=== PATIENT | male | born 1965 | race Caucasian/White ===

== ENCOUNTER → 2021-07-31 13:17 | Outpatient (CLI) | payer BC, SELFPAY ==
--- NOTE | ~2021-07-31 | XR_ITS ---
XR lumbar spine 2-3V 07/31/2021 14:44 Indication: Low back pain Procedure: 3 views lumbar spine Comparison: 08/16/2016 Findings: There is mild levoscoliosis. There is disc narrowing at all lumbar levels. There is moderat e multilevel facet degenerative change of the mid and lower lumbar spine. No acute fracture, subluxat ion or dislocation. No evidence for spondylolisthesis. Impression: 1: Moderate lumbar spondylosis with levoscoliosis. Reviewed, dictated and finalized at location B. IC IMPROVEMENT INSPECTOR Impression: 1: Moderate lumbar spondylosis with levoscoliosis.
--- NOTE | ~2021-07-31 | XR_ITS ---
EXAMINATION: XR ankle RT 2V, XR foot RT 2V EXAM DATE: 07/31/2021 14:44 INDICATION: Chronic pain syndrome, pain in unspecified ankle and joints. TECHNIQUE: Frontal and lateral projections of the right ankle. Right foot frontal and lateral projec tions. There is no prior study for comparison. FINDINGS: There is right subtalar joint fusion. There is mild to moderate ankle joint osteoarthritis , mild to moderate polyarticular midfoot osteoarthritis. The metatarsal bones are unremarkable. There are no acute fractures identified. There are no bony erosions identified. Small inferior calcaneal s pur. Flor deformity. IMPRESSION: 1. 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 2. Intact subtalar joint fusion screws. Reviewed, dictated and finalized at location A. NG BOARD MARKER IMPRESSION: 1. 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 2. Intact subtalar joint fusion screws.
--- NOTE | ~2021-07-31 | XR_ITS ---
XR cervical spine 4-5V 07/31/2021 14:44 Indication: Chronic neck pain syndrome Procedure: 5 views of the cervical spine Comparison: 08/16/2016 Findings: Vertebral body heights are maintained. No significant disc narrowing. There is moderate mul tilevel uncinate and facet degenerative change. Odontoid process within normal limits. No prevertebra l soft tissue swelling. Lung apices are unremarkable. Impression: 1: Mild-moderate cervical spondylosis. Reviewed, dictated and finalized at location B. MONIUM HYDROXIDE OPERATOR Impression: 1: Mild-moderate cervical spondylosis.
--- NOTE | ~2021-07-31 | XR_ITS ---
EXAMINATION: XR foot LT 2V EXAM DATE: 07/31/2021 14:44 INDICATION: Chronic pain syndrome . Bilateral foot pain. History of foot surgeries. TECHNIQUE: Frontal and lateral projections of the left foot. Correlation is made to Contralateral fo ot same date. FINDINGS: There is arthrodesis of the Lisfranc joint at the 1st and 2nd metatarsal bases. Prior calc aneal osteotomies with 2 plates, supporting screws. No evidence of screw fracture. The osteotomy site s appear healed. There is short and left 1st proximal phalanx, with possible osteotomy defect. Correl ate with surgical history. No acute erosive change or fracture. There is mild to moderate subtalar ana int, polyarticular midfoot osteoarthritis. IMPRESSION: Left foot chronic and postoperative changes. Reviewed, dictated and finalized at location A. R ATTENDANT
== END ==
PROVIDERS: PCP Internal Medicine; Visit Provider Pain Medicine Interventional Pain Medicine
DX: G89.4 Chronic pain syndrome (principal); M79.646 Pain in unspecified finger(s); M25.519 Pain in unspecified shoulder; M25.569 Pain in unspecified knee; M47.896 Other spondylosis, lumbar region; M19.071 Primary osteoarthritis, right ankle and foot; M47.892 Other spondylosis, cervical region
CPT/HCPCS: 72050; 72100; 73600; 73620

== ENCOUNTER → 2023-01-17 11:08 | Outpatient (CLI) | payer MEDICARE, OTHER, SELFPAY ==
--- NOTE | ~2023-01-17 | XR_ITS ---
Cervical Spine: AP, lateral, open-mouth views Clinical History: Pain Findings: The normal lordotic curve is maintained. The vertebral bodies and posterior elements appea r intact. The intervertebral disc spaces are well maintained. There is mild to moderate facet arthro zoë at the mid cervical spine. Pre-vertebral soft tissues are unremarkable. Impression: Mild to moderate facet arthropathy at the mid cervical spine. Reviewed, dictated and finalized at location . Impression: Mild to moderate facet arthropathy at the mid cervical spine.
--- NOTE | ~2023-01-17 | XR_ITS ---
Right foot Technique: AP and lateral views were obtained. Clinical History: Pain Findings: No acute fracture or dislocation is seen. Osseous alignment is anatomic. 2 orthopedic screw s are present, apparently fusing the subtalar joints.. Soft tissues are unremarkable. Impression: No acute abnormality. Probable orthopedic fusion across the subtalar joint. Correlate with surgical history. Reviewed, dictated and finalized at location . Impression: No acute abnormality. Probable orthopedic fusion across the subtalar joint. Correlate with surgical h istory.
--- NOTE | ~2023-01-17 | XR_ITS ---
Left Hand Technique: PA, oblique, and lateral views were obtained. Clinical History: Pain Findings: No acute fracture or dislocation is seen. Osseous alignment is anatomic. There is mild dege nerative change at the second DIP joint. There is orthopedic screw transfixing the fifth DIP joint, w hich appears to be fused. Impression: No acute abnormality. Orthopedic fusion across the fifth DIP joint. Correlate with surgical history. Mild degenerative change at the second DIP joint. Reviewed, dictated and finalized at location . Impression: No acute abnormality. Orthopedic fusion across the fifth DIP joint. Correlate with surgical history. Mild degenerative change at the second DIP joint.
--- NOTE | ~2023-01-17 | XR_ITS ---
Right Hand Technique: PA, oblique, and lateral views were obtained. Clinical History: Pain Findings: No acute fracture or dislocation is seen. Osseous alignment is anatomic. There is mild dege nerative change at the second DIP joint. Soft tissues are unremarkable. Impression: Mild degenerative change of the second DIP joint. Reviewed, dictated and finalized at [facility]. Impression: Mild degenerative change of the second DIP joint.
--- NOTE | ~2023-01-17 | XR_ITS ---
Left foot Technique: AP and lateral views were obtained. Clinical History: Pain COMPARISON: 07/31/2021 Findings: No acute fracture or dislocation is seen. Stable short first proximal phalanx. Orthopedic h ardware fusing the first and second tarsal metatarsal joints is stable from prior exam. There are 2 c ompression plate and interlocking screws involving the calcaneus, also unchanged. Soft tissues are un remarkable. Impression: No acute abnormality. Stable orthopedic fusions of the first and second tarsometatarsal joints, as well as additional ortho pedic plate and screws at the calcaneus. Correlate with surgical history. Reviewed, dictated and finalized at location M. Impression: No acute abnormality. Stable orthopedic fusions of the first and second tarsometatarsal joints, as we ll as additional orthopedic plate and screws at the calcaneus. Correlate with s urgical history.
--- NOTE | ~2023-01-17 | XR_ITS ---
Lumbosacral Spine: AP and lateral views Clinical History: Pain Findings: The normal lordotic curve is maintained. No fracture seen. Minimal grade 1 retrolisthesis o f L2 over L3 noted. There is moderate to advanced facet arthropathy throughout the lumbar spine. The sacroiliac joints are normally outlined. Impression: Moderate to advanced facet arthropathy throughout the lumbar spine. Minimal grade 1 retrolisthesis of L2 over L3. Reviewed, dictated and finalized at location M. Impression: Moderate to advanced facet arthropathy throughout the lumbar spine. Minimal grade 1 retrolisthesis of L2 over L3.
== END ==
PROVIDERS: PCP Pain Medicine Interventional Pain Medicine; Visit Provider Pain Medicine Interventional Pain Medicine
DX: M79.643 Pain in unspecified hand (principal); M79.673 Pain in unspecified foot; M54.17 Radiculopathy, lumbosacral region; M54.12 Radiculopathy, cervical region; M25.519 Pain in unspecified shoulder; M25.569 Pain in unspecified knee; M25.579 Pain in unspecified ankle and joints of unspecified foot; M79.646 Pain in unspecified finger(s); G89.4 Chronic pain syndrome
CPT/HCPCS: 72050; 72100; 73130; 73620

== ENCOUNTER 2024-03-01 12:10 | Outpatient (CLI) | payer MEDICARE, SELFPAY ==
--- NOTE | ~2024-03-01 | XR_ITS ---
EXAMINATION: XR_CERV2-3V_CR DATE: 03/01/2024 13:26 INDICATION: Cervical radiculopathy. Chronic neck pain. TECHNIQUE: 3 views of cervical spine were obtained. COMPARISON: Cervical spine radiographs 01/17/2023 FINDINGS: There is 4 degrees levocurvature of cervical spine. Vertebral body heights are normal. Ther e is mildly decreased disc height at C3-C4 and moderately decreased disc height at C6-C7. There is mu ltilevel facet joint osteoarthritis, severe on the right at C4-C5. There is mild central canal stenos is at C3-C4 and C6-C7. No prevertebral soft tissue swelling. IMPRESSION: 1. Moderate cervical spondylosis. Reviewed, dictated and finalized at location A.
--- NOTE | ~2024-03-01 | XR_ITS ---
EXAMINATION: XR thoracic spine 3V DATE: 03/01/2024 13:26 INDICATION: Thoracic radiculopathy. Thoracic back pain. TECHNIQUE: 3 views of thoracic spine including standing views were obtained. COMPARISON: None. FINDINGS: There is 6 degrees levocurvature of upper thoracic spine. Vertebral body heights are normal . There is mildly decreased disc height at multiple levels in thoracic spine. There are endplate oste ophytes at many levels. IMPRESSION: 1. Mild thoracic spondylosis. Reviewed, dictated and finalized at location A.
--- NOTE | ~2024-03-01 | XR_ITS ---
EXAMINATION: XR lumbar spine 2-3V DATE: 03/01/2024 13:26 INDICATION: Lumbar radiculopathy. TECHNIQUE: 3 views of lumbar spine including standing views were obtained. COMPARISON: Lumbar spine radiographs 01/17/2023 FINDINGS: There is 13 degrees dextroscoliosis of thoracolumbar spine. There is 4 mm retrolisthesis of L1 on L2 and L2 on L3. Vertebral body heights are normal. There is severely decreased disc height at L1-L2, moderately decreased disc height at L2-L3, mildly decreased disc height at L4-L5, and moderat jordan decreased disc height at L5-S1. There is multilevel severe facet joint osteoarthritis. IMPRESSION: 1. Severe lumbar spondylosis, worsened from 01/17/2023. 2. Thoracolumbar dextroscoliosis. Reviewed, dictated and finalized at location A.
== END 2024-03-01 12:11 ==
PROVIDERS: PCP Pain Medicine Interventional Pain Medicine
DX: M47.22 Other spondylosis with radiculopathy, cervical region (principal); M47.24 Other spondylosis with radiculopathy, thoracic region; M47.27 Other spondylosis with radiculopathy, lumbosacral region
CPT/HCPCS: 72040; 72072; 72100

== ENCOUNTER 2024-07-15 13:24 | Outpatient (CLI) | payer MEDICARE, SELFPAY ==
--- NOTE | ~2024-07-15 | XR_ITS ---
EXAMINATION: XR chest 2V 07/15/2024 13:41 INDICATION: Mild persistent asthma PROCEDURE: 2 view chest COMPARISON: No prior studies for comparison. FINDINGS: The lungs are clear. The cardiomediastinal silhouette is within normal limits. There are no pleural effusions. There is no pneumothorax suspected. IMPRESSION: 1: NO ACUTE CARDIOPULMONARY DISEASE. Reviewed, dictated and finalized at location B. JAVASCRIPT ENGINEER
== END 2024-07-15 13:25 | disposition home or self-care (01) ==
PROVIDERS: PCP Internal Medicine; Visit Provider Internal Medicine Pulmonary Disease
DX: J45.30 Mild persistent asthma, uncomplicated (principal)
CPT/HCPCS: 71046

== ENCOUNTER 2024-08-02 02:44 | Inpatient (IN) | payer MEDICARE, SELFPAY ==
[2024-08-02] VITALS (30 sets, daily range): BP systolic 95–130; BP diastolic 46–70; PULSE 92–123; RESP 14–29; TEMP 36.3–36.8; O2SAT 92–100; BMI 31.7
--- NOTE | 2024-08-02 | ECHO_ITS ---
Patient Info Name: Pedrito Mcneill Age: 58 years : 1965 Gender: Male Ht: 70 in Wt: 204 lbs BSA: 2.16 m2 HR: 105 bpm BP: 98 / 58 mmHg Technical Quality: Fair Exam Date: 08/02/2024 10:40 AM Exam Location: Echo Lab Patient Status: Inpatient Admit Date: 08/02/2024 Staff Ordering Physician: Russ Culver MD (luis daniel/sina) Senior Cytogenetics Laboratory Director: Jenn Delvalle RDCS Attending Provider: Francisco Mccauley MD Referring Physician: Palomo TADEO; Exam Type: CA echo doppler color flow w con Study Info Indications R07.9 - Chest pain, unspecified Complete two-dimensional, color flow and Doppler transthoracic echocardiogram is performed with contrast to opacify the left ventricle and to improve the deliniation of the left ventricle endocardial borders. Contrast/Agitated Saline Contrast/Ag. Saline: Definity Amount: 2.00 ml Administered By: Jenn Delvalle RDCS Existing IV Access: Yes IV Access Condition: patent with no signs of infiltration Summary 1. Left ventricular systolic function is normal, estimated at 55-60%. 2. The left ventricular diastolic function is abnormal. 3. Right ventricular chamber dimension is mildly enlarged. 4. Right ventricular systolic function is reduced. 5. There is trace tricuspid valve regurgitation. 6. Mild pulmonary hypertension, estimated pulmonary arterial systolic pressure is 38 mmHg. 7. Technically difficult study with limited views. Left Ventricle Left ventricular chamber dimension is normal. Left ventricular systolic function is normal, estimated at 55-60%. There is no increased left ventricular wall thickness. The left ventricular diastolic function is abnormal. Right Ventricle Right ventricular chamber dimension is mildly enlarged. Right ventricular systolic function is reduced. Left Atria Left atrial chamber dimension is normal. Right Atria Right atrial chamber dimension is normal. Aortic Valve The aortic valve is probable trileaflet. There is mild aortic valve sclerosis. There is no aortic valve stenosis. There is no aortic valve regurgitation. Pulmonic Valve The pulmonic valve is normal. There is no pulmonic valve stenosis. There is no pulmonic regurgitation. Mitral Valve The mitral valve has normal leaflets. There is no mitral valve stenosis. There is no mitral valve regurgitation. Tricuspid Valve The tricuspid valve leaflets are normal. There is no significant tricuspid valve stenosis. There is trace tricuspid valve regurgitation. Mild pulmonary hypertension, estimated pulmonary arterial systolic pressure is 38 mmHg. Pericardium/Pleural The pericardium appears normal. There is no pericardial effusion. Inferior Vena Cava Normal inferior vena cava with <50% collapse upon inspiration consistent with elevated right atrial pressure, 10 mmHg. Aorta The aortic root size at the sinus of Valsalva is normal. The prox ascending aorta size is normal. Mitral Valve Name Value Normal MV Doppler MV Decel Jenkins 438 cm/s2 MV PHT 33 ms MV Area (PHT) 6.6 cm2 4.0-5.0 MV Diastolic Function MV E Peak Velocity 51 cm/s MV A Peak Velocity 68 cm/s MV E/A 0.7 MV Decel Time 115 ms MV Annular TDI MV E/e' (Septal) 6.7 <=8.0 MV E/e' (Lateral) 5.5 <=8.0 MV E/e' (Average) 6.1 Tricuspid Valve Name Value Normal TV Regurgitation Doppler TR Peak Velocity 264 cm/s TR Peak Gradient 28 mmHg Estimated PAP/RSVP RA Pressure 10 mmHg <=5 PA Systolic Pressure 38 mmHg <36 RV Systolic Pressure 38 mmHg <36 Aorta Name Value Normal Ascending Aorta Ao Root Diameter (MM) 3.2 cm Ao Root Diam Index (MM) 1.5 cm/m2 Ventricles Name Value Normal LV Dimensions 2D/MM IVS Diastolic Thickness (2D) 0.9 cm 0.6-1.0 LVID Diastole (2D) 4.7 cm 4.2-5.8 LVIW Diastolic Thickness (2D) 0.9 cm 0.6-1.0 LVID Systole (2D) 2.8 cm 2.5-4.0 LV Mass (2D Cubed) 144.59 g 88.00-224.00 LV Mass Index (2D Cubed) 67 g/m2 49-115 Relative Wall Thickness (2D) 0.38 LV Fractional Shortening/Ejection Fraction 2D/MM LV Fractional Shortening (2D) 40 % 25-43 LV EF (2D Teicholz) 71 % 52-72 Atria Name Value Normal LA Dimensions LA Dimension (MM) 3.4 cm 3.0-4.1 Report Signatures LA
--- NOTE | ~2024-08-02 | US_ITS ---
EXAMINATION: US venous doppler [facility] DATE: 08/02/2024 14:29 INDICATION: Bilateral pulmonary embolus TECHNIQUE: Grayscale ultrasound images without and with compression and Doppler ultrasound images of the bilateral lower extremity veins were obtained. COMPARISON: None. FINDINGS: The visualized portions of right common femoral vein, profunda (deep) femoral vein, femoral vein, pop liteal vein, peroneal veins, posterior tibial veins, and greater saphenous vein outflow are patent. The visualized portions of left common femoral vein, profunda femoral vein, femoral vein, popliteal v ein, peroneal veins, posterior tibial veins, and greater saphenous vein outflow are patent. IMPRESSION: 1. No deep venous thrombosis within the bilateral lower extremities. Reviewed, dictated and finalized at location A. TOR OPERATOR
--- NOTE | ~2024-08-02 | XR_ITS ---
Portable chest x-ray Comparison: 07/15/2024 Clinical History: Shortness of breath Findings: Lungs are clear, without focal consolidation or pleural effusion. Cardiomediastinal silho uette is stable. Bones and soft tissues are unremarkable. Impression: Clear lungs. Reviewed, dictated and finalized at location . HOUSE OPERATOR Impression: Clear lungs.
--- NOTE | ~2024-08-02 | CT_ITS ---
EXAMINATION: CTA chest DATE: 08/02/2024 09:28 INDICATION: Shortness of breath. Assess for aortic dissection and pulmonary embolism TECHNIQUE: Computed tomographic angiography (CTA) of the chest was performed without and with 100 mL Omnipaque-350 intravenous contrast. Volume-rendered 3D-reconstructions of the aorta and large arterie s were constructed by the technologist on a separate workstation. Automated exposure control and iter ative reconstruction technique were employed. The dose-length product was 2097.50 mGy-cm. COMPARISON: None. FINDINGS: There are extensive central pulmonary arterial filling defects involving all of the lobar and multipl e more peripheral segmental and subsegmental pulmonary arteries in both lungs consistent with pulmona ry embolism with high clot burden. The heart size is normal but there is asymmetric right ventricular enlargement which suggests secondary right heart strain. There are small peripheral wedge-shaped reg ions of consolidation in the anterior segment of the left upper lobe suspicious for secondary pulmona ry infarcts versus less likely pneumonia. A couple calcified pulmonary nodule left lung consistent wi th old granulomatous disease. No pulmonary edema or pleural effusion. No pericardial effusion. Thorac ic aorta is normal in caliber with no dissection. Normal anatomic variant aberrant retroesophageal ri ght subclavian artery. No pathologically enlarged thoracic lymphadenopathy. Small sliding-type hiatal hernia. Visualized upper abdomen is unremarkable. Mild thoracic spondylosis. IMPRESSION: 1. Extensive pulmonary emboli with high clot burden involving all of the lobar and multiple segmental and subsegmental pulmonary throughout both lungs with asymmetric enlargement of the right ventricle suggesting secondary right heart strain. Findings were discussed with Dr. Lino, at 10:00 AM. 2. Couple small peripheral wedge-shaped regions of consolidation in the anterior segment of the left upper lobe consistent with secondary pulmonary infarcts or less likely pneumonia. 3. Small sliding-type hiatal hernia. Reviewed, dictated and finalized at location B. LE GREASER IMPRESSION: 1. Extensive pulmonary emboli with high clot burden involving all of the lobar and multiple segmental and subsegmental pulmonary throughout both lungs with as ymmetric enlargement of the right ventricle suggesting secondary right heart st rain. Findings were discussed with Dr. Lino, at 10:00 AM. 2. Couple small peripheral wedge-shaped regions of consolidation in the anterio r segment of the left upper lobe consistent with secondary pulmonary infarcts o r less likely pneumonia. 3. Small sliding-type hiatal hernia.
--- OUTSIDE RECORDS SUMMARY | 2024-08-02 02:46 | XMS_ITS | Encounter Summary ---
Author Organization [facility] Address [address] [place] [address]. [place], [place] [address] [place] [address] Care Team Providers Care Carbon Paper Coating Machine Setter Name Role Phone Reuben Padilla MD Primary Care Provider Encounter Details Date Type Department Care Team (Late st Contact Info) Description 06/02/2024 Zoomaalhart Message Enc [facility] Multispecialty Care - [address] [address] [address] [place], [place] [id number] Reuben Padilla MD [address] [place] [address] [address] [place] [address] Krzysztof Social History Tobacco Use Types Packs/Day Years Used Date Smoking Tobacco: Never Smokeless Tobacco: Never Comments:Counseled by Dr. Soco álvarez. Alcohol Use Standard Drinks/Week Comments Yes 3.3 (1 standard drink = 0.6 oz p ure alcohol) maybe once a month PHQ-2 Answer Date Recorded Patient Health Questionnaire-2 Score 0 07/16/2023 Sex and Gender Information Value Date Recorded Sex Assigned at Not on file Legal Sex Male 1:38 PM CDT Gender Identity Not on file Sexual Orientation Not on file documented as of this encounter Plan of Treatment Upcoming Encounters Date Type Department Care Team (Late st Contact Info) Description 09/03/2024 8:00 PM CUSTOMER CARE TEAM COACH Appointment [facility] [address] [place] [address] Gabe Vázquez DO [address] [place] [address] 10/06/2024 9:00 AM CDT Office Visit [facility] Multispecialty Care - [address] [place] [address] Reuben Padilla MD [address] [facility] [address] [place] [address] 01/24/2025 9:00 AM CDT Office Visit [facility] Multispecialty Care - [facility] [address] [place] [address] Gabe Vázquez DO [address] [facility] [address] [place] [address] documented as of this encounter Visit Diagnoses Not on filedocumented in this encounter Additional Health Concerns Assessment Noted Time PHQ-9 Depression Total Score: 6 07/16/19 24 1:42 PM CUSTOMER CARE TEAM COACH documented as of this encounter Care Teams Carbon Paper Coating Machine Setter Relationship Specialty Start Date End Date Reuben Padilla MD [address] [place] [address] PCP - General INTERNAL MEDICINE 12/04/22 documented as of this encounter
--- OUTSIDE RECORDS SUMMARY | 2024-08-02 02:46 | XMS_ITS | Encounter Summary ---
Author Organization [facility] Address [address] [place] [address]. [place], [place] [address] [place] [address] Care Team Providers Care Coiled Tubing Supervisor Name Role Phone Reuben Padilla MD Primary Care Provider [phone] Encounter Details Date Type Department Care Team (Late st Contact Info) Description 10/21/2023 Moberg Research Message Enc [facility] Medical [facility] Multispecialty Care - [address] [place], [place] [id number] [facility] Provider EKG Social History Tobacco Use Types Packs/Day Years Used Date Smoking Tobacco: Never Smokeless Tobacco: Never Comments:Counseled by Dr. oSco álvarez. Alcohol Use Standard Drinks/Week Comments Yes [...] st Contact Info) Description 09/03/2024 8:00 PM COACH TOUR DRIVER Appointment [facility] [address] [place] [address] Gabe Vázquez DO [address] [place] [address] 10/06/2024 9:00 AM CDT Office Visit [facility] Multispecialty Care - [place] [address] [facility] [address] [place] [address] Reuben Padilla MD [address] [address] 01/24/2025 9:00 AM CDT Office Visit [facility] Mult[facility]pecialty Care - [facility] [address] [facility] [address] [facility] [address] [place] [address] Gabe Vázquez DO [address] [facility] [address] [place] [address] documented as of this encounter Visit Diagnoses Not on filedocumented in this encounter Additional Health Concerns Assessment Noted Time PHQ-9 Depression Total Score: 6 07/16/19 24 1:42 PM COACH TOUR DRIVER documented as of this encounter Care Teams Coiled Tubing Supervisor Relationship Specialty [place] [address] [place] [address] PCP - General INTERNAL MEDICINE 12/04/22 documented as of this encounter
--- OUTSIDE RECORDS SUMMARY | 2024-08-02 02:46 | XMS_ITS | Encounter Summary ---
Author Organization [facility] Address [address] [place] [address]. [place], [place] [address] [place] [address] Care Team Providers Care Alignment Specialist Name Role Phone Reuben Padilla MD Primary Care Provider [phone] Encounter Details Date Type Department Care Team (Late st Contact Info) Description 01/31/2023 NanoSteel Message Enc [facility] Medical [facility] Multispecialty Care - [address] [place] [address] [facility] Provider Lab results Social History Tobacco Use Types Packs/Day Years Used Date Smoking Tobacco: Never Smokeless Tobacco: Never Comments:Counseled by Dr. Soco álvarez. Alcohol Use Standard Drinks/Week Comments Yes 3.3 (1 standard drink = 0.6 oz p ure alcohol) maybe once a month PHQ-2 Answer Date Recorded Patient Health Questionnaire-2 Score 5 01/28/2023 Sex and Gender Information Value Date Recorded Sex Assigned at Not on file Legal Sex Male 1:38 PM CDT Gender Identity Not on file Sexual Orientation Not on file documented as of this encounter Plan of Treatment Upcoming Encounters Date Type Department Care Team (Late st Contact Info) Description 09/03/2024 8:00 PM PROJECTION ENGINEER Appointment [facility] [address] [place] [address] Gabe Vázquez, DO [address] [place] [address] 10/06/2024 9:00 AM CDT Office Visit [facility] Group Multispecialty Care - [place] [address] [facility] [address] [place] [address] Reuben Pdailla MD [address] [address] 01/24/2025 9:00 AM CDT Office Visit [facility] Multispecialty Care - [facility] [address] [facility] [address] [place] [address] Gabe Vázquez DO [address] [facility] [address] [place] [address] documented as of this encounter Visit Diagnoses Not on filedocumented in this encounter Additional Health Concerns Assessment Noted Time PHQ-9 Depression Total Score: 19 023 2:28 PM CDT documented as of this encounter Care Teams Alignment Specialist Relationship Specialty [place] [address] [place] [address] PCP - General INTERNAL MEDICINE 12/04/22 documented as of this encounter
--- OUTSIDE RECORDS SUMMARY | 2024-08-02 02:46 | XMS_ITS | CONTINUITY OF CARE DOCUMENT ---
Author Name [email or web address] Address Unknown Organization [facility] Address [address] [place] [address] [address] [place] [address] Phone [phone] Care Team Providers Care Process Improvement Analyst Name Role Phone Richard WELLINGTON, Madeleine Unavailable Mellisa WELLINGTON, Jordan Jiménez Unavailable [phone] INSURANCE PROVIDERS Payer name Policy type / Coverage type Union red constitution party ID [facility] [id number]
--- OUTSIDE RECORDS SUMMARY | 2024-08-02 02:46 | XMS_ITS | Encounter Summary ---
Author Organization [facility] Address [address] [place] [address]. [place], [place] [address] [place] [address] Care Team Providers Care Floatman Name Role Phone Reuben Padilla MD Primary Care Provider [phone] Encounter Details Date Type Department Care Team (Late st Contact Info) Description 12/09/2023 [place] Systemshart Message Enc [facility] Medical Group Multispecialty Care - [address] [address] [address] [place] [address] [place] [address] [place] [address] [address] [place] [address] CPAP machine Social History Tobacco Use Types Packs/Day Years [...] st Contact Info) Description 09/03/2024 8:00 PM PHARMACEUTICAL PROCESS ENGINEER Appointment [facility] [address] [place], [place] [id number] Gabe Vázquez DO [address] [place] [address] 10/06/2024 9:00 AM CDT Office Visit [facility] Medical Group Multispecialty Care - [address] [place] [address] Reuben Padilla MD [address] [facility] 157 [place] [address] 01/24/2025 9:00 AM CDT Office Visit [facility] Multispecialty Care - [facility] [address] [place] [address] Gabe Vázquez DO [address] [facility] [address] [place] [address] documented as of this encounter Visit Diagnoses Not on filedocumented in this encounter Additional Health Concerns Assessment Noted Time PHQ-9 Depression Total Score: 6 07/16/19 24 1:42 PM PHARMACEUTICAL PROCESS ENGINEER documented as of this encounter Care Teams Floatman Relationship Specialty Start Date End Date Reuben Padilla MD [address] [place] [address] PCP - General INTERNAL MEDICINE 12/04/22 documented as of this encounter
--- OUTSIDE RECORDS SUMMARY | 2024-08-02 02:46 | XMS_ITS | Encounter Summary ---
Author Organization [facility] Address [address] [place] [address]. [place], [place] [address] [place] [address] Care Team Providers Care Supervisor Fabrication And Assembly Name Role Phone Reuben Padilla MD Primary Care Provider [phone] Encounter Details Date Type Department Care Team (Late st Contact Info) Description 07/17/2023 [employer] Message Enc [facility] Medical [facility] Multispecialty Care - [address] [place], [place] [id number] [facility], [facility] Provider Test results Social History Tobacco Use Types Packs/Day [...] st Contact Info) Description 09/03/2024 8:00 PM RAILROAD CAR CLEANER Appointment [facility] [address] [place] [address] Gabe Vázquez, DO [address] [facility] [address] [place] [address] 10/06/2024 9:00 AM CDT Office Visit [facility] Medical Group Multispecialty Care - [place] [address] [facility] [address] [place] [address] Reuben Padilla MD [address] [address] 01/24/2025 9:00 AM CDT Office Visit [facility] Multispecialty Care - [facility] [address] [facility] [address] [place] [address] Gabe Vázquez DO [address] [facility] [address] [place] [address] documented as of this encounter Visit Diagnoses Not on filedocumented in this encounter Additional Health Concerns Assessment Noted Time PHQ-9 Depression Total Score: 6 07/16/19 24 1:42 PM RAILROAD CAR CLEANER documented as of this encounter Care Teams Supervisor Fabrication And Assembly Relationship Specialty [place] [address] [place] [address] PCP - General INTERNAL MEDICINE 12/04/22 documented as of this encounter
--- OUTSIDE RECORDS SUMMARY | 2024-08-02 02:46 | XMS_ITS | Encounter Summary ---
Author Organization [facility] Address [address] [place] [address]. [place], [place] [address] [place] [address] Care Team Providers Care Highway Patrol Pilot Name Role Phone Reuben Padilla MD Primary Care Provider [phone] Encounter Details Date Type Department Care Team (Latest Contact Info) Description 07/14/2024 MyChart Message Enc [facility] Medical Group Multispecialty Care - [facility] [address] [facility] [address] [place] [address] Gabe Vázquez DO [address] [facility] [address] [place], [place] [id number] Xray for Pedrito Mcneill Social History Tobacco Use Types Packs/Day Years Used Date Smoking Tobacco: Never Smokeless Tobacco: Never Comments:Counseled by Dr. Soco álvarez. Alcohol Use Standard Drinks/Week Comments Yes 3.3 (1 standard drink = 0.6 oz p ure alcohol) maybe once a month PHQ-2 Answer Date Recorded Patient Health Questionnaire-2 Score 0 07/14/2024 Sex and Gender Information Value Date Recorded Sex Assigned at Not on file Legal Sex Male 1:38 PM CDT Gender Identity Not on file Sexual Orientation Not on file documented as of this encounter Plan of Treatment Upcoming Encounters Date Type Department Care Team (Late st Contact Info) Description 09/03/2024 8:00 PM PIANO TECHNICIAN Appointment [facility] [address] [place] [address] Gabe Vázquez DO 3 [facility] [address] [place] [address] 10/06/2024 9:00 AM CDT Office Visit [facility] Medical Group Multispecialty Care - [place] [address] [address] [place] [address] [place] [address] [place] [address] 01/24/2025 9:00 AM CDT [facility] [address] [facility] [address] [place] [address] Gabe Vázquez DO 3 [facility] [address] [place] [address] documented as of this encounter Visit Diagnoses Not on filedocumented in this encounter Additional Health Concerns Assessment Noted Time PHQ-9 Depression Total Score: 6 07/16/19 24 1:42 PM PIANO TECHNICIAN documented as of this encounter Care Teams Highway Patrol Pilot Relationship Specialty Start [place] [address] [place] [address] PCP - General INTERNAL MEDICINE 12/04/22 documented as of this encounter
--- OUTSIDE RECORDS SUMMARY | 2024-08-02 02:46 | XMS_ITS | Encounter Summary ---
Author Organization [facility] Address [address] [place] [address]. [place], [place] [address] [place] [address] Care Team Providers Care Claims Representative Name Role Phone Reuben Padilla MD Primary Care Provider [phone] Encounter Details Date Type Department Care Team (Late st Contact Info) Description 12/09/2023 [employer] Message Enc [facility] Medical Group Multispecialty Care - [place] [address] [address] [place] [address] Reuben Padilla MD [address] [place] [address] 157 [place] [address] CPAP Social History Tobacco Use Types Packs/Day Years [...] st Contact Info) Description 09/03/2024 8:00 PM MACHINE SHOP LEAD MAN Appointment [facility] [address] [place], [place] [id number] Gabe Vázquez DO [address] [place] [id number] 10/06/2024 9:00 AM CDT Office Visit [facility] Medical Group Multispecialty Care - [address] [place] [address] Reuben Padilla MD 1188 [facility] 157 [place] [address] 01/24/2025 9:00 AM CDT Office Visit [facility] Mult[facility]pecialty Care - [facility] [address] [facility] [place] [address] Gabe Vázquez DO 3 [facility] [address] [place] [address] documented as of this encounter Visit Diagnoses Not on filedocumented in this encounter Additional Health Concerns Assessment Noted Time PHQ-9 Depression Total Score: 6 07/16/19 24 1:42 PM MACHINE SHOP LEAD MAN documented as of this encounter Care Teams Claims Representative Relationship Specialty Start Date End Date Reuben Padilla MD [address] [place] [address] PCP - General INTERNAL MEDICINE 12/04/22 documented as of this encounter
--- OUTSIDE RECORDS SUMMARY | 2024-08-02 02:46 | XMS_ITS | Encounter Summary ---
Author Organization [facility] Address [address] [place] [address]. [place], [place] [address] [place] [address] Care Team Providers Care Soil Scientist Name Role Phone Reuben Padilla MD Primary Care Provider [phone] Encounter Details Date Type Department Care Team (Late st Contact Info) Description 11/03/2023 MyChart Message Enc [facility] Medical Group Multispecialty Care - [place] [address] [address] [place] [address] Reuben Padilla MD [address] [place] [address] 157 [place] [address] Dr Joya Social History Tobacco Use Types Packs/Day Years [...] st Contact Info) Description 09/03/2024 8:00 PM PLUCK SEPARATOR Appointment [facility] [address] [place], [place] [id number] Gabe Vázquez DO [address] [facility] [address] [place] [address] 10/06/2024 9:00 AM CDT Office Visit [facility] Medical Group Multispecialty Care - [address] [place] [address] Reuben Padilla MD [address] [facility] 157 [place] [address] 01/24/2025 9:00 AM CDT Office Visit [facility] Medical Group Multispecialty Care - [facility] [address] [facility] [place] [address] Gabe Vázquez DO 3 [facility] [address] [place] [address] documented as of this encounter Visit Diagnoses Not on filedocumented in this encounter Additional Health Concerns Assessment Noted Time PHQ-9 Depression Total Score: 6 07/16/19 24 1:42 PM PLUCK SEPARATOR documented as of this encounter Care Teams Soil Scientist Relationship Specialty Start Date End Date Reuben Padilla MD [address] [place] [address] PCP - General INTERNAL MEDICINE 12/04/22 documented as of this encounter
--- OUTSIDE RECORDS SUMMARY | 2024-08-02 02:46 | XMS_ITS | Encounter Summary ---
Author Organization [facility] Address [address] [place] [address]. [place], [place] [address] [place] [address] Care Team Providers Care Hoop Machine Operator Name Role Phone Reuben Padilla MD Primary Care Provider [phone] Encounter Details Date Type Department Care Team (Late st Contact Info) Description 08/01/2023 MyChart Message Enc [facility] Medical Group Multispecialty Care - [place] [address] [address] [place] [address] Reuben Padilla MD [address] [place] [address] 157 [place] [address] [employer] Social History Tobacco Use Types Packs/Day Years [...] Contact Info) Description 09/03/2024 8:00 PM CUSTOMER PROFESSIONAL Appointment [facility] [address] [place] [address] Gabe Vázquez DO [address] [facility] [place] [address] 10/06/2024 9:00 AM CDT Office Visit [facility] Medical Group Multispecialty Care - [address] [place] [address] Reuben Padilla MD 1188 [facility] 157 [place] [address] 01/24/2025 9:00 AM CDT Office Visit [facility] Medical Group Multispecialty Care - [facility] [address] [facility] [place] [address] Gabe Vázquez DO 3 [facility] [address] [place] [address] documented as of this encounter Visit Diagnoses Not on filedocumented in this encounter Additional Health Concerns Assessment Noted Time PHQ-9 Depression Total Score: 6 07/16/19 24 1:42 PM CUSTOMER PROFESSIONAL documented as of this encounter Care Teams Hoop Machine Operator Relationship Specialty Start Date End Date Reuben Padilla MD [address] [place] [address] PCP - General INTERNAL MEDICINE 12/04/22 documented as of this encounter
--- OUTSIDE RECORDS SUMMARY | 2024-08-02 02:46 | XMS_ITS | Encounter Summary ---
Author Organization [facility] Address [address] [place] [address]. [place], [place] [address] [place] [address] Care Team Providers Care Music Critic Name Role Phone Reuben Padilla MD Primary Care Provider [phone] Encounter Details Date Type Department Care Team (Late st Contact Info) Description 01/02/2024 [email or web address] Message Enc [facility] Medical Group Multispecialty Care - [place] [address] [address] [place] [address] Reuben Padilla MD [address] [place] [address] 157 [place] [address] Sejal Social History Tobacco Use Types Packs/Day Years [...] st Contact Info) Description 09/03/2024 8:00 PM CARGO AGENT Appointment [facility] [address] [place] [address] Gabe Vázquez DO [address] [facility] [address] [place] [address] 10/06/2024 9:00 AM CDT Office Visit [facility] Medical Group Multispecialty Care - [address] [place] [address] Reuben Padilla MD 1188 [facility] 157 [place] [address] 01/24/2025 9:00 AM CDT Office Visit [facility] Medical Group Multispecialty Care - [facility] [address] [facility] [address] [place] [address] Gabe Vázquez DO [address] [facility] [address] [place] [address] documented as of this encounter Visit Diagnoses Not on filedocumented in this encounter Additional Health Concerns Assessment Noted Time PHQ-9 Depression Total Score: 6 07/16/19 24 1:42 PM CARGO AGENT documented as of this encounter Care Teams Music Critic Relationship Specialty [place] [address] [place] [address] 157 [place] [address] PCP - General INTERNAL MEDICINE 12/04/22 documented as of this encounter
--- OUTSIDE RECORDS SUMMARY | 2024-08-02 02:46 | XMS_ITS | Encounter Summary ---
Author Organization [facility] Address [address] [place] [address] Care Team Providers Care Sales Planning Manager Name Role Phone Jordan Pak MD Primary Care Provider [phone] Morris Busby MD Primary Care Provider [phone] Encounter Details Date Type Department Care Team (Late st Contact Info) Description 04/14/2020 Telephone [facility] [address] [place] [address] Jv Bray, RT Social History Tobacco Use Types Packs/Day Years Used Date Smoking Tobacco: Never Smokeless Tobacco: Never Alcohol Use Standard Drinks/Week Comments Yes 0 (1 standard drink = 0.6 oz pur e alcohol) Sex and Gender Information Value Date Recorded Sex Assigned at Not on file Legal Sex Male 7:47 PM HOT MILL OBSERVER Gender Identity Not on file Sexual Orientation Not on file 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
--- OUTSIDE RECORDS SUMMARY | 2024-08-02 02:46 | XMS_ITS | Encounter Summary ---
Author Organization [facility] Address [address] [place] [address]. [place], [place] [address] [place] [address] Care Team Providers Care Dermatology Nurse Name Role Phone Reuben Padilla MD Primary Care Provider [phone] Encounter Details Date Type Department Care Team (Late st Contact Info) Description 05/27/[address] [facility] Medical Group Multispecialty Care - [place] [address] [address] [place] [address] Reuben Padilla MD [address] [place] [address] 157 [place] [address] [employer] Social History Tobacco Use Types Packs/Day Years [...] st Contact Info) Description 09/03/2024 8:00 PM BENZENE OPERATOR Appointment [facility] [address] [place], [place] [address] Gabe Vázquez DO [address] [place] [address] 10/06/2024 9:00 AM CDT Office Visit [facility] Medical Group Multispecialty Care - [address] [place] [address] Reuben Padilla MD 1188 [facility] 157 [place] [address] 01/24/2025 9:00 AM CDT Office Visit [facility] Medical Group Multispecialty Care - [facility] [address] [facility] [address] [place] [address] Gabe Vázquez DO 3 [facility] [address] [place] [address] documented as of this encounter Visit Diagnoses Not on filedocumented in this encounter Additional Health Concerns Assessment Noted Time PHQ-9 Depression Total Score: 6 07/16/19 24 1:42 PM BENZENE OPERATOR documented as of this encounter Care Teams Dermatology Nurse Relationship Specialty Start Date End Date Reuben Padilla MD [address] [place] [address] PCP - General INTERNAL MEDICINE 12/04/22 documented as of this encounter
--- OUTSIDE RECORDS SUMMARY | 2024-08-02 02:46 | XMS_ITS | Encounter Summary ---
Author Organization [facility] Address [address] [place] [address]. [place], [place] [address] [place] [address] Care Team Providers Care Pouncing Lathe Operator Name Role Phone Reuben Padilla MD Primary Care Provider [phone] Encounter Details Date Type Department Care Team (Latest Contact Info) Description 10/28/2023 MyChart Message Enc [facility] Medical Group Multispecialty Care - [address] [place], [place] [address] [place] [address] [place] [address] 157 [place] [address] most recent labs Social History Tobacco Use Types Packs/Day Years [...] on file documented as of this encounter Progress Notes * Arturo Randolph - 10/28/2023 11:48 AM CDT Labs successfully faxed to [phone]. documented in this encounter Plan of Treatment Upcoming Encounters Date Type Department Care Team ( Contact Info) Description 09/03/2024 8:00 PM PROGRAM PROJECT MANAGER Appointment [facility] [address] [place] [address] Gabe Vázquez DO 3 [facility] [address] [place] [address] 10/06/2024 9:00 AM CDT Office Visit [facility] Medical [facility] Multispecialty [facility] [place] [address] [address] [place] [address] Reuben Padilla MD [address] [place] [address] 01/24/2025 9:00 AM CDT Office Visit [facility] [address] [facility] [address] [place] [address] Gabe Vázquez DO 3 [facility] [address] [place] [address] documented as of this encounter Visit Diagnoses Not on filedocumented in this encounter Additional Health Concerns Assessment Noted Time PHQ-9 Depression Total Score: 6 07/16/19 24 1:42 PM PROGRAM PROJECT MANAGER documented as of this encounter Care Teams Pouncing Lathe Operator Relationship Specialty Start Date End Date Reuben Padilla MD [address] [place] [address] PCP - General INTERNAL MEDICINE 12/04/22 documented as of this encounter
--- OUTSIDE RECORDS SUMMARY | 2024-08-02 02:46 | XMS_ITS | Clinical Summary ---
Author Organization [facility] Address [address] [place] [address]. [place], [place] [id number] [place] [id number] Care Team Providers Care Last Sawyer Name Role Phone Reuben Padilla MD Primary Care Provider [phone] Allergies Active Allergy Reactions Criticality Noted Date Comments Acyclovir Headache Low 03/31/2020 Metformin Diarrhea Low 03/31/2020 Penicillins Hives 01/28/2023 Sulfa Antibiotics Nausea and Vomiting 3 Sulfites Headache,Vomiting 08/16/2005 Medications fentaNYL (DURAGESIC) 50 mcg/hr 3 Active hydrocortisone- pramoxine (ANALPRAM HC) 2.5-1 % rectal cream Active oxyCODONE-aceta minophen (PERCOCET) 7.5-325 MG tablet 3 Active traMADol (ULTRAM) 50 MG tablet 3 Active aspirin 81 MG chewable tabletIndicatio ns:Type 2 diabetes mellitus with hyperglycemia, without long-term current use of insulin ([facility]) Chew 1 tablet (81 mg total) by mouth daily. 30 tablet 3 Active Insulin Pen Needle 31G X 8 MM MiscIndications :Type 2 diabetes mellitus with hyperglycemia, without long-term current use of insulin ([facility]) Use daily to dispense Toujeo. 100 each 11 3 Active fluticasone propionate (FLONASE) 50 MCG/ACT nasal sprayIndication s:Chronic obstructive pulmonary disease, unspecified COPD type ([facility]) 1 spray by Each Nostril route daily. 16 g 5 4 Active fluticasone-ashkan meterol (ADVAIR DISKUS) 250-50 MCG/ACT inhalerIndicati ons:Chronic obstructive pulmonary disease, unspecified COPD type ([facility] HHS/HCC) Inhale 1 puff into the lungs 2 (two) times daily. 60 each 5 4 Active CPAP DEVICE, DME,Indications :GRANT (obstructive sleep apnea) [facility]. 1 Device 4 Active cyclobenzaprine (FLEXERIL) 10 MG tabletIndicatio ns:Chronic midline low back pain, unspecified whether sciatica present Take 1 tablet (10 mg total) by mouth daily. 90 tablet 1 4 Active buPROPion XL (WELLBUTRIN XL) 150 MG 24 hr tabletIndicatio ns:Moderate episode of recurrent major depressive disorder ([facility] HHS/HCC) Take 1 tablet (150 mg total) by mouth daily. 90 tablet 1 4 Active RELISTOR 150 MG Tab Take 3 tablets by mouth daily. 4 Active amitriptyline (ELAVIL) 25 MG tablet Take 1 tablet (25 mg total) by mouth daily. 4 Active valACYclovir (VALTREX) 500 MG tabletIndicatio ns:Cold sore Take 1 tablet (500 mg total) by mouth 2 (two) times daily. 14 tablet 4 Active ondansetron (ZOFRAN) 4 MG tabletIndicatio ns:Type 2 diabetes mellitus with hyperglycemia, without long-term current use of insulin ([facility] HHS/HCC) TAKE 1 TABLET BY MOUTH DAILY NEEDED. 20 tablet 4 Active busPIRone (BUSPAR) 10 MG tabletIndicatio ns:RICKI (generalized anxiety disorder) take 1 tablet twice a day 180 tablet 4 Active pregabalin (LYRICA) 75 MG capsuleIndicati ons:Chronic midline low back pain, unspecified whether sciatica present TAKE 1 CAPSULE TWICE DAILY 180 capsule 4 Active Zolmitriptan 5 MG SolutionIndicat ions:Intractabl e persistent migraine aura without cerebral infarction and without status migrainosus Use one spray into nostril. You may use one additional dose of zolmitriptan 2 hours after the first dose. Do not use more than 3 doses in any 24-hour period. 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 180 tablet 1 4 Active tirzepatide (MOUNJARO) 15 MG/0.5ML injectionIndica tions:Diabetes Mellitus Inject 15 mg into the skin once a week. Indications: Diabetes 6 mL 6 4 Active lisinopril (PRINIVIL) 10 MG tabletIndicatio ns:Hypertension associated with diabetes (CMS/HCC HHS/HCC) Take 1 tablet (10 mg total) by mouth daily. 90 tablet 1 4 Active Insulin Glargine, 2 Unit Dial, (TOUJEO MAX SOLOSTAR) 300 UNIT/ML Solution Pen-injectorInd ications:Type 2 diabetes mellitus with hyperglycemia, without long-term current use of insulin (CMS/HCC HHS/HCC) Inject 54 Units into the skin nightly at bedtime. 3 mL 3 4 Active insulin aspart (NOVOLOG FLEXPEN) 100 UNIT/ML injection (PEN)Indication s:Type 2 diabetes mellitus with hyperglycemia, without long-term current use of insulin (CMS/HCC HHS/HCC) Inject 5 Units into the skin 3 (three) times daily before meals. 3 mL 4 4 Active fenofibrate 160 MG tabletIndicatio ns:Hypertriglyc eridemia Take 1 tablet (160 mg total) by mouth daily. 90 tablet 1 4 Active atorvastatin (LIPITOR) 40 MG tabletIndicatio ns:Type 2 diabetes mellitus with hyperglycemia, without long-term current use of insulin (CMS/HCC HHS/HCC) Take 1 tablet (40 mg total) by mouth daily. 90 tablet 1 4 Active ezetimibe (ZETIA) 10 MG tabletIndicatio ns:Type 2 diabetes mellitus with hyperglycemia, without long-term current use of insulin (CMS/HCC HHS/HCC) Take 1 tablet (10 mg total) by mouth daily. 90 tablet 4 Active FLUoxetine (PROZAC) 40 MG capsuleIndicati ons:Moderate episode of recurrent major depressive disorder ([facility]) Take 1 capsule (40 mg total) by mouth daily. 90 capsule 1 4 Active rOPINIRole (REQUIP) 1 MG tabletIndicatio ns:RLS (restless legs syndrome) TAKE 1 TABLET 3 TIMES A DAY 90 tablet 1 4 Active Continuous Glucose Film Cleaner (DEXCOM G6 MILITARY AIRCRAFT DESIGNER) DeviceIndicatio ns:Type 2 diabetes mellitus without complication, with long-term current use of insulin ([facility]) Use daily to check blood sugar as directed. 1 each 3 4 Active Continuous Glucose Sensor (DEXCOM G6 SENSOR) MiscIndications :Type 2 diabetes mellitus without complication, with long-term current use of insulin ([facility]) Use daily to check blood sugar as directed. 3 each 12 4 Active Continuous Glucose Transmitter (DEXCOM G6 TRANSMITTER) MiscIndications :Type 2 diabetes mellitus without complication, with long-term current use of insulin ([facility]) USE DIRECTED TO CHECK BLOOD SUGAR DAILY 1 each 11 4 Active Active Problems Problem Noted Date Diagnosed Date Hyperlipidemia associated wi th type 2 diabetes mellitus ([facility]) 01/28/2023 Hypertension associated with type 2 diabetes mellitus ([facility]) 01/28/2023 Neuropathy due to type 2 micha betes mellitus ([facility]) 01/28/2023 RICKI (generalized anxiety disorder) 01/28/2023 Chronic low back pain 01/28/2023 Chronic neck pain 01/28/2023 Migraine 01/28/2023 Recurrent major depression 05/21/2022 Type 2 diabetes mellitus wit hout complication ([facility]) 10/24/2020 Pain of foot 07/08/2013 COPD (chronic obstructive pu lmonary disease) ([facility]) 07/06/2007 Degenerative joint disease 07/06/2005 Encounters Date Type Department Care Team Description 07/15/2024 Scan HEALTH INFO SRVCS Scanned, Doc Med Group Image (SCAN) 07/15/2024 Telephone [facility] - [address] [place] [address] Gabe Vázquez DO Results 07/14/2024 8:00 AM TECHNICAL SUPERVISOR [facility] - [address] [place] [address] Gabe Vázquez DO Obstructive Sleep Apnea (On cpap; has been told that he is still snoring with the cpap on; last time he changed out mask/straps was 05/2024 ) 07/14/2024 MyChart Message Enc [facility] - [address], [address] [place] [address] Gabe Vázquez DO Xray for Pedrito Mcneill 07/14/2024 Travel 06/02/2024 MyChart Message Enc [facility] - [place] [address] [place] [address] [facility] Orders Only [facility] [place] [address] [place] [address] Reuben Padilla MD 05/27/2024 MyChart Message Enc [facility] - [place] [address] [place] [address] Reuben Padilla MD Dexcom from Last 3 Months Immunizations Name Administration Dates Next Due Influenza (Generic) 03/19/2024,,04/10/2022,2017,03/29/2017,04/09/2016,04/12/2015,1 Influenza Adult (Generic) 04/17/2022,07/2020,03/15/2020,2015,04/13/2015,07/07/2012 MODERNA COVID-19 (12+) MRNA, LNP-S, PF, 100 MCG/ 0.5 ML DOSE 04/10/2022,10/02/2020,09/12/2020,2020 MODERNA COVID-19 (CARDIAC TECHNOLOGIST SAFIA ZHENG), MRNA, LNP-S, PF, 50 MCG/ 0.25 ML DOSE 12/16/2021,06/12/2021 PFIZER COVID-19 BIVALENT (12 +) mRNA, LNP-S, PF, 30 MCG/0.3 ML DOSE 03/19/2024 Pneumococcal (Pneumovax 23) 06/12/2015 Pneumococcal (Prevnar 13) 04/12/2015 Shingrix 12/16/2021,04/30/2021 Tdap (Adacel) 07/16/2023 Family History Medical History Relation Comments Arthritis Mother Depression Mother Diabetes Mother Hypertension Mother Relation Status Comments Mother Social History Tobacco Use Types Packs/Day Years Used Date Smoking Tobacco: Never Smokeless Tobacco: Never Tobacco Cessation:Counseling Given: Yes Comments:Counseled by Dr. Padilla. Alcohol Use Standard Drinks/Week Comments Yes 3.3 (1 standard drink = 0.6 oz p ure alcohol) maybe once a month PHQ-2 Answer Date Recorded Patient Health Questionnaire-2 Score 0 07/14/2024 Sex and Gender Information Value Date Recorded Sex Assigned at Not on file Legal Sex Male 1:38 PM CDT Gender Identity Not on file Sexual Orientation Not on file Last Filed Vital Signs Vital Sign Reading Time Taken Comments Blood Pressure 106/71 07/14/2024 7:46 AM TECHNICAL SUPERVISOR Pulse 90 07/14/2024 7:46 AM TECHNICAL SUPERVISOR Temperature 36.2 ??C (97.1 ??F) 04/27/2024 8:46 AM CD T Respiratory Rate 16 07/14/2024 7:46 AM TECHNICAL SUPERVISOR Oxygen Saturation 95% 07/14/2024 7:46 AM TECHNICAL SUPERVISOR RA Inhaled Oxygen Concentration - - Weight 92.5 kg (204 lb) 07/14/2024 7:46 AM TECHNICAL SUPERVISOR Height 177.8 cm (5' 10 ) 07/14/2024 7:46 AM TECHNICAL SUPERVISOR Body Mass Index 29.27 07/14/2024 7:46 AM TECHNICAL SUPERVISOR Plan of Treatment Upcoming Encounters Date Type Department Care Team (Late st Contact Info) Description 09/03/2024 8:00 PM TECHNICAL SUPERVISOR Appointment [facility] [address] [place] [address] Gabe Vázquez DO [address] [facility] [address] [facility] [address] [place] [address] 10/06/2024 9:00 AM CDT Office Visit [facility] - [place] [address] [address] [place] [address] Reuben Padilla MD [address] [facility] [address] [place] [address] 01/24/2025 9:00 AM CDT [facility] [address] [place] [address] Gabe Vázquez DO [address] [facility] [address] [place] [address] Health Maintenance Due Date Last Done Comments Kidney Health Evaluation 1965 COVID-19 Vaccine ( season) 2024 03/19/2024, 03/31/2023, 04/17/2022, Additional history exists Annual Physical 07/16/2024 07/16/2023 Lipid Panel 07/16/2024 07/16/2023, 01/05, 08/20/2022 Hemoglobin A1C 07/28/2024 01/26/2024, 10/05, 07/16/2023, Additional history exists Colorectal Cancer Screening Colonoscopy (10 Years) 07/12/2025 07/12/2015 PHQ-2 (Physician Premium) 07/14/2025 07/14/2024 Diabetes: Retinopathy Eye Exam 11/09/2025 11/10/2023 Pneumococcal Vaccine: Pediatrics (0 to 5 Years) and At-Risk Patients (6 to 64 Years) (3 of 3 - PPSV23 or PCV20) 2029 06/12/2015, 04/12/2015 DTaP, Tdap and Td Vaccines (2 - Td or Tdap) 07/16/2033 07/16/2023 Zoster Vaccines Completed 12/16/2021, 04/30/2021 Hepatitis C Completed 01/28/2023 Influenza Adult Completed 03/19/2024, 03/08, 04/17/2022, Additional history exists Meningococcal Vaccine Aged Out No suzie alicia eligible based on patient's age to complete this topic RSV Immunizations Under 20 Months Aged Out No longer eligible based on patient's age to complete this topic Procedures Procedure Name Priority Date/Time Associated Diagnosis Comments IMAGE GENERIC 07/15/2024 IMAGE GENERIC 07/15/2024 HEMOGLOBIN, GLYCOSYLATED Routine 01/26/2024 10:17 AM CDT Type 2 diabetes mellitus with hyperglycemia, without long-term current use of insulin ([facility]) DIABETIC RETINOPATHY EXAM (NEGATIVE)(SCAN ORDER) Routine 11/10/2023 LIPID PANEL Routine 07/16/2023 1:33 PM TECHNICAL SUPERVISOR Annual physical exam General medical exam HEPATITIS C ANTIBODY Routine 01/28/2023 3:37 PM CDT Encounter for medical examination to establish care General medical exam Encounter for hepatitis C screening test for low risk patient COLONOSCOPY GENERIC (SCAN ORDER) 07/12/2015 from Last 3 Months or Most Recently Relevant to Health Maintenance Results * IMAGE GENERIC (07/15/2024) Only the most recent of2 resultswithin the time period is included. Anatomical Region Laterality Modality Other 07/15/2024 us Doc [facility] Scanned SCANNING Final Resu lt * (ABNORMAL) HEMOGLOBIN, GLYCOSYLATED (01/26/2024 10:17 AM CDT) HGB A1C 5.9 4.5 - 6.2 % 01/26/2024 3:15 PM CDT [facility] ESTIM[facility] AVG GLUCOSE 123(H) 74 - 106 MG/DL 01/26/2024 3:15 PM CDT [facility] 01/26/2024 10:1 7 AM CDT Reuben Padilla MD LABORATORY Final Result [facility] [address] [facility] [place] [address], [place] [phone] * DIABETIC RETINOPATHY EXAM (NEGATIVE) (11/10/2023) Doc [facility] Scanned SCANNING Final Resu lt Performing Organization Address City/[facility]/ZIP Co de Phone Number [facility] * (ABNORMAL) LIPID PANEL (07/16/2023 1:33 PM TECHNICAL SUPERVISOR) CHOLESTEROL 186 <200 MG/DL 07/16/2023 8:05 PM TECHNICAL SUPERVISOR [facility] TRIGLYCERIDES 197(H) <150 MG/DL 07/16/2023 8:05 PM [facility] HDL 48 >40 MG/DL 07/16/2023 8:05 PM TECHNICAL SUPERVISOR [facility] LDL-C 99 <100 MG/DL 07/16/2023 8:05 PM [facility] VLDL CALCULATION 39(H) 5 - 28 MG/DL 07/16/2023 8:05 PM [facility] CHOL/HDL RATIO 3.9 0.0 - 4.0 07/16/2023 8:05 PM [facility] LDL/HDL 2.1 0.41 - 2.13 07/16/2023 8:05 PM [facility] NON HDL CHOLESTEROL 138 <140 MG/DL 07/16/2023 8:05 PM TECHNICAL SUPERVISOR [facility] 07/16/2023 1:33 PM TECHNICAL SUPERVISOR Reuben Padilla MD LABORATORY Final Result [facility] [address] [facility] [place] [address], [place] [phone] * HEPATITIS C ANTIBODY (01/28/2023 3:37 PM CDT) HEPATITIS C AB NON-REACTI VE NON-REACT MADYSON 01/28/2023 9:58 PM CDT [facility] Comment: ANTIBODIES TO HCV NOT DETECTED. DOES NOT EXCLUDE THE POSSIBILITY OF EXPOSURE TO HCV. 01/28/2023 3:37 PM CDT Reuben Padilla MD LABORATORY Final Result Performing Organization Address City/[facility] Co de Phone Number [facility] [address] [place] [address], [place] [phone] * COLONOSCOPY GENERIC (07/12/2015) 07/12/2015 us Doc [facility] Scanned SCANNING Final Resu lt from Last 3 Months or Most Recently Relevant to Health Maintenance Insurance [employer] Care Teams Last Sawyer Relationship Specialty Start Date End Date Reuben Padilla MD [address] [facility] [address] [place] [address] PCP - General INTERNAL MEDICINE 12/04/22
--- OUTSIDE RECORDS SUMMARY | 2024-08-02 02:47 | XMS_ITS | Clinical Summary ---
Author Organization [facility] Office Center Address [address] [place] [address] Care Team Providers Care Frit Coater Name Role Phone Morris Busby MD Primary Care Provider [phone] Allergies Active Allergy Reactions Criticality Noted Date Comments Acyclovir Headache Low 03/31/2020 Metformin Diarrhea Low 03/31/2020 Penicillins Sulfa (Sulfonamide Antibiotics) Medications traMADoL (ULTRAM) 50 mg tablet TK 1 T PO Q 6 TO 8 H PRN Active clindamycin (CLEOCIN T) 1 % external solution clindamycin phosphate 1 % topical solution Active cyclobenzaprine (FLEXERIL) 10 mg tablet Take 10 mg by mouth daily as needed Active albuterol HFA (PROVENTIL HFA,VENTOLIN HFA,PROAIR HFA) 90 mcg/actuation inhaler Ventolin HFA 90 mcg/actuation aerosol inhaler INHALE 2 PUFFS BY MOUTH EVERY 4 HOURS Activ e aspirin 81 mg chewable tablet daily Acti ve ergocalciferol (VITAMIN D) 50,000 unit capsule Vitamin D2 1,250 mcg (50,000 unit) capsule Active fenofibrate nanocrystallized (TRICOR) 145 mg tablet fenofibrate nanocrystallized 145 mg tablet Active fentaNYL (DURAGESIC) 50 mcg/hr APPLY 1 PATCH EVERY 3 DAYS Active fluticasone propion-salmeteroL (ADVAIR DISKUS) 250-50 mcg/dose diskus inhaler Advair Diskus 250 mcg-50 mcg/dose powder for inhalation Active fluticasone propionate (FLONASE) 50 mcg/actuation nasal spray fluticasone propionate 50 mcg/actuation nasal spray,suspension Active OneTouch Delica Plus Lancet 33 gauge misc USE TO TEST TWICE A DAY Active promethazine (PHENERGAN) 12.5 mg tablet promethazine 12.5 mg tablet Active lancets 33 gauge misc OneTouch Delica Plus Lancet 33 gauge Active hydrocortisone-pram oxine (ANALPRAM-HC) 2.5-1 % rectal cream hydrocortisone-pram oxine 2.5 %-1 % rectal cream Active meloxicam (MOBIC) 15 mg tablet Take 15 mg by mouth daily as needed Active flash glucose sensor (FreeStyle Dorian 2 Sensor) kitIndications:Type 2 diabetes mellitus without complication, unspecified whether terminal block assembler insulin use (HCC) Use to check glucose 4+ times a day 6 kit 3 Active Additional Information Patient not taking.Reported on 05/28/2022 fluocinonide (LIDEX) 0.05 % external solution APPLY 1 ML TO THE SCALP TWICE A DAY Active FreeStyle Test strip Use to check blood glucose with low Dorian readings using Freestyle precision pepe test strips 100 each 11 Active Additional Information Patient not taking.Reported on 05/28/2022 BD Ultra-Fine Pepe Pen Needle 32 gauge x 5/32 needle Use with insulin injection up to 4 times a day 400 each 3 Active oxyCODONE-acetamino phen (PERCOCET) 7.5-325 mg per tablet TAKE 1 TABLET BY MOUTH EVERY 8 TO 12 HOURS NEEDED Active valACYclovir (VALTREX) 1 gram tablet TAKE 2 TABLETS BY MOUTH AT ONSET, THEN 2 TABLETS 12 HOURS LATER. REPEAT NEEDED FOR FLARES Active insulin aspart (NovoLOG) 100 unit/mL (3 mL) pen for injection Inject 5 units SQ with meals along with sliding scale, TDD 30 units 30 mL 3 Active topiramate (TOPAMAX) 25 mg tablet TAKE 1 TABLET BY MOUTH TWICE A DAY 180 tablet 1 Active SUMAtriptan (IMITREX) 100 mg tabletIndications:M igraine Take 1 tablet (100 mg total) by mouth once as needed for migraine May repeat after 2 hours. 9 tablet 3 022 Active amitriptyline (ELAVIL) 25 mg tablet Take 25 mg by mouth daily as needed Active insulin glargine (BASAGLAR) 100 unit/mL (3 mL) pen for injection Inject 37 units SQ daily 45 mL 3 022 Active blood-glucose sensor (Dexcom G6 Sensor) deviceIndications:T ype 2 diabetes mellitus with hyperglycemia, with long-term current use of insulin ([facility]) Use to continually monitor glucose, change every 10 days 9 each 1 023 Active Dexcom G6 Transmitter deviceIndications:T ype 2 diabetes mellitus with hyperglycemia, with long-term current use of insulin ([facility]) Use to continually monitor glucose, change every 90 days 1 each 1 023 Active Dexcom G6 Engineering Specialist Technician miscIndications:Typ e 2 diabetes mellitus without complication, unspecified whether long-term insulin use ([facility]) Use to continually monitor glucose 1 each 023 Active dulaglutide (Trulicity) 4.5 mg/0.5 mL pen injector Inject 0.5 mL (4.5 mg total) under the skin every 7 days 6 mL 1 023 Active SUMAtriptan succinate 6 mg/0.5 mL syringe Inject 6 mg under the skin once for 1 dose Take at onset of headache 2.5 mL 3 023 Active lisinopriL (PRINIVIL,ZESTRIL) 20 mg tablet Take 1 tablet (20 mg total) by mouth daily 30 tablet 3 023 Active pregabalin (LYRICA) 75 mg capsule TAKE 1 CAPSULE BY MOUTH TWICE A DAY 60 capsule 023 Active FLUoxetine (PROzac) 40 mg capsule TAKE 1 CAPSULE BY MOUTH EVERY DAY 90 capsule 023 Active ezetimibe (ZETIA) 10 mg tablet TAKE 1 TABLET BY MOUTH EVERY DAY 90 tablet 023 Active atorvastatin (LIPITOR) 80 mg tablet TAKE 1 TABLET BY MOUTH EVERY DAY 90 tablet 1 024 Active buPROPion XL (WELLBUTRIN XL) 150 mg 24 hr tablet TAKE 1 TABLET BY MOUTH EVERY DAY 90 tablet 1 024 Active Active Problems Problem Noted Date Diagnosed Date Recurrent major depression 05/21/2022 Type 2 diabetes mellitus without complication (C MS/HCC) 10/24/2020 Neuropathy 10/24/2020 Mixed hyperlipidemia 10/24/2020 Essential hypertension 10/24/2020 Arthralgia of ankle 07/08/2013 Pain of foot 07/08/2013 Immunizations Name Administration Dates Next Due Influenza, Quadrivalent, Spl it, Intramuscular 03/15/2020 Influenza, Quadrivalent, Spl it, Preservative Free, Intramuscular 03/07/2021,03/15/2020,07/07/2012 Influenza, Trivalent, High D ose, Split, Preservative Free, Intramuscular 04/10/2016,04/13/2015 Influenza, Trivalent, Preser vative Free, Intramuscular 04/09/2016,04/12/2015 Influenza, Unspecified 04/10/2022,2017,03/29/2017,04/18 Moderna SARS-CoV-2 Monovalen t Vaccination (12+ YRS) 04/10/2022 Pneumococcal Conjugate PCV 13 04/12/2015 Pneumococcal Polysaccharide PPV23 06/12/2015 ZOSTER Recombinant 04/30/2021 Surgical History Surgery Date Site/Laterality Comments ANKLE FRACTURE SURGERY HAND SURGERY HERNIA REPAIR EYE SURGERY Medical History Medical History Date Comments Anxiety Arthritis Asthma Depression Diabetes mellitus (HCC) Hypercholesteremia Hypertension Migraines MRSA (methicillin resistant Staphylococcus aureu s) Sleep apnea COPD (chronic obstructive pulmonary disease) (HC C) Family History Medical History Relation Name Comments Diabetes Mother Heart disease Mother Hypertension Mother Relation Name Status Comments Father Alive Mother Social History Tobacco Use Types Packs/Day Years Used Date Smoking Tobacco: Never Smokeless Tobacco: Never Tobacco Cessation:Counseling Given: Not Answered Alcohol Use Standard Drinks/Week Comments Yes 0 (1 standard drink = 0.6 oz pur e alcohol) PHQ-2 Answer Date Recorded PHQ-2 Total Score (If total score is 3 or more points, staff should administer the PHQ-9) 0 05/21/2022 Personal Safety Answer Date Recorded Getting School Help Needed Not on file 06/18 Sex and Gender Information Value Date Recorded Sex Assigned at Not on file Legal Sex Male 7:47 PM BULWARK CARPENTER Gender Identity Not on file Sexual Orientation Not on file 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 Not on file Obstetrics History Last Filed Vital Signs Vital Sign Reading Time Taken Comments Blood Pressure 131/81 05/28/2022 9:29 AM BULWARK CARPENTER Pulse 79 05/28/2022 9:29 AM BULWARK CARPENTER Temperature 37.3 ??C (99.1 ??F) 05/28/2022 9:29 AM CS T Respiratory Rate - - Oxygen Saturation 98% 05/21/2022 3:48 PM BULWARK CARPENTER Inhaled Oxygen Concentration - - Weight 108.9 kg (240 lb) 05/28/2022 9:29 AM BULWARK CARPENTER Height 177.8 cm (5' 10 ) 05/28/2022 9:29 AM BULWARK CARPENTER Body Mass Index 34.44 05/28/2022 9:29 AM BULWARK CARPENTER Plan of Treatment Health Maintenance Due Date Last Done Comments Colon Cancer Screening-Colonoscopy 1964 Hepatitis C Screening 1965 Dilated Eye Exam 1964 Foot Exam 1964 DTaP/Tdap/Td Vaccine (1 - Tdap) 11/12/1975 Hepatitis B Screening 1982 Regular Well Visit/Exam 18-64 1982 Zoster Vaccine (2 of 2) 06/25/2021 04/30/2021 Albumin Creatinine Ratio, Urine 10/02/2022 Hemoglobin A1C 02/17/2023 08/20/2022, 05/08, 01/01/2022, Additional history exists Depression Screening 05/21/2023 05/21/2022, 11/14/19 Lipid Panel 08/20/2023 08/20/2022, 10/02/2021 eGFR 08/20/2023 08/20/2022, 10/02/2021 Prostate Cancer Screening-PSA 11/14/2023 11/13/2021 Covid-19 Vaccine (2023-2 5 season) 2024 04/10/2022, 06/12/2021, 10/02/2020, Additional history exists Influenza Vaccine (#1) 2024 2, 03/07/2021, 03/15/2020, Additional history exists Pneumococcal vaccine <65 (3 of 3 - PPSV23 or PCV20) 2029 06/12/2015, 04/12/2015 Procedures Procedure Name Priority Date/Time Associated Diagnosis Comments EGFR Routine 08/20/2022 10:29 AM BULWARK CARPENTER Type 2 diabetes mellitus without complication, unspecified whether long-term insulin use (HCC) HEMOGLOBIN A1C Routine 08/20/2022 10:29 AM BULWARK CARPENTER Type 2 diabetes mellitus without complication, unspecified whether long-term insulin use (HCC) LIPID PANEL Routine 08/20/2022 10:29 AM BULWARK CARPENTER Type 2 diabetes mellitus without complication, unspecified whether long-term insulin use (HCC) PSA SCREEN Routine 11/13/2021 2:34 PM CDT Prostate cancer screening ALBUMIN CREATININE RATIO, URINE Routine 10/02/2021 8:25 AM CDT Type 2 diabetes mellitus without complication, unspecified whether terminal block assembler insulin use (HCC) from Last 3 Months or Most Recently Relevant to Health Maintenance Results * eGFR (08/20/2022 10:29 AM BULWARK CARPENTER) [facility] eGFR 104 mL/min/1. 73 m2 SHMUEL VASQUEZ Comment: Interpretive Data Reference Interval Normal ?>/= 90 mL/min/1.73m2 Mildly decreased* ? 60 - 89 mL/min/1.73m2 Mildly to moderately decreased ?45 - 59 mL/min/1.73m2 Moderately to severely decreased ??30 - 44 mL/min/1.73m2 Severely decreased ?15 - 29 mL/min/1.73m2 Kidney Failure ?< 15 ??mL/min/1.73m2 *Relative to young adult level Estimated glomerular filtration rate is determined by the 2020 CKD-EPI equation recommended by the National Kidney Foundation (A Unifying Approach to GFR Estimation: Recommendations of the NKF-ASK Task Force on Reassessing the Inclusion of Race in Diagnosing Kidney Disease, JUAN JN 2020). The CKD-EPI equation should not be used for patients with unstable renal function and has not been validated in children and those over 70. Current interpretive data was last reviewed 2021. Blood 08/20/2022 10:2 9 AM BULWARK CARPENTER 08/20/2022 2:54 PM BULWARK CARPENTER Morris Busby MD LAB BLOOD ORDERABLES Padmini l Result Performing Organization Address [facility] de Phone Number [facility] [address] [place] [address] * (ABNORMAL) Hemoglobin A1c (08/20/2022 10:29 AM BULWARK CARPENTER) Hgb A1C 8.1(H) 4.0 - 5.6 % SHMUEL Estimated Average Glucose 186 mg/dL SHMUEL Comment: The ADA recommends reporting an estimated Average Glucose (eAG) with all Hemoglobin A1c results using the equation derived from a study of 507 normal and diabetic adults. ??Minority populations were underrepresented and children were not included. ?? (Diabetes Care 31:7121-0621, 2008). ??The eAG is not equivalent to a fasting glucose. Blood 08/20/2022 10:2 9 AM BULWARK CARPENTER 08/20/2022 2:51 PM BULWARK CARPENTER Morris Busby MD LAB BLOOD ORDERABLES Padmini l Result Performing Organization Address [facility] de Phone Number [facility] [id number] [facility] [place] [address] * (ABNORMAL) Lipid panel (08/20/2022 10:29 AM BULWARK CARPENTER) Cholesterol 168 30 - 199 mg/dL SHMUEL Comment: Interpretive Data Ages < or = 19 years ??Acceptable: ? <170 mg/dL ??Borderline high: ??170-199 mg/dL ??High: ? >or= 200 mg/dL Ages > or = 20 years ??Desirable: ?<200 mg/dL ??Borderline high: ??200-239 mg/dL ??High: ? >or= 240 mg/dL Literature References: 1. Expert Panel on Integrated Guidelines for Cardiovascular Health and Risk Reduction in Children and Adolescents. Pediatrics 2011;128:S213 2. NCEP Expert Panel. Circulation 2004;110:227 Current Interpretive Data was last revised on 2018. Triglycerides 519(H) <=149 mg/dL SHMUEL VASQUEZ Comment: Interpretive Data Ages < or = 9 years ??Acceptable: ? <75 mg/dL ??Borderline high: ??75-99 mg/dL ??High: ? >or= 100 mg/dL Ages 10 to 20 years ??Acceptable: ? <90 mg/dL ??Borderline high: ??90-129 mg/dL ??High: ? >or= 130 mg/dL Ages > or = 20 years ??Desirable: ?<150 mg/dL ??Borderline high: ??150-199 mg/dL ??High: ? 200-499 mg/dL ?Very high: ?? >or= 499 mg/dL Literature References: 1. Expert Panel on Integrated Guidelines for Cardiovascular Health and Risk Reduction in Children and Adolescents. Pediatrics 2011;128:S213 2. NCEP Expert Panel. Circulation 2004;110:227 Current Interpretive Data was last revised on 2018. HDL 34(L) >=40 mg/dL SHMUEL VASQUEZ Comment: Interpretive Data Ages < or = 19 years ??Acceptable: ? >45 mg/dL ??Borderline low: ?? 40-45 mg/dL ??Low: ? <40 mg/dL Ages > or = 20 years ??Desirable: ?>or= 60 mg/dL ??Low: ? <40 mg/dL Literature References: 1. Expert Panel on Integrated Guidelines for Cardiovascular Health and Risk Reduction in Children and Adolescents. Pediatrics 2011;128:S213 2. NCEP Expert Panel. Circulation 2004;110:227 Current Interpretive Data was last revised on 2018. LDL, calculated See Comment <=129 mg/dL SHMUEL VASQUEZ Comment: Unable to calculate due to elevated Triglycerides. Interpretive Data Ages < or = 19 years ??Acceptable: ? <110 mg/dL ??Borderline high: ??110-129 mg/dL ??High: ?>or= 130 mg/dL Ages > or = 20 years ??Optimal: ? <100 mg/dL ??Near optimal: ?100-129 mg/dL ??Borderline high: ?? 130-159 mg/dL ??High: ?>160 mg/dL Literature References: 1. Expert Panel on Integrated Guidelines for Cardiovascular Health and Risk Reduction in Children and Adolescents. Pediatrics 2011;128:S213 2. NCEP Expert Panel. Circulation 2004;110:227 Current Interpretive Data was last revised on 2018. Non-HDL Cholesterol 134 mg/dL SHMUEL VASQUEZ Comment: Interpretive Data Ages < or = 19 years ??Acceptable: ?<120 mg/dL ??Borderline high: ??120-144 mg/dL ??High: ?>145 mg/dL Ages > or = 20 years ??When triglycerides are >200 mg/dL, Non-HDL cholesterol is a secondary target of ? therapy with treatment goals that are 30 mg/dL greater than the LDL cholesterol target. ? Literature References: 1. Expert Panel on Integrated Guidelines for Cardiovascular Health and Risk Reduction in Children and Adolescents. Pediatrics 2011;128:S213 2. NCEP Expert Panel. Circulation 2004;110:227 Current Interpretive Data was last revised on 2018. Chol/HDL ratio 5 SHMUEL Blood 08/20/2022 10:2 9 AM BULWARK CARPENTER 08/20/2022 2:51 PM BULWARK CARPENTER us Morris Busby MD LAB BLOOD ORDERABLES Padmini carney Result SHMUEL VASQUEZ [address] [place] [address] * PSA screen (11/13/2021 2:34 PM CDT) PSA-Total 0.17 <=3.90 ng/mL SHMUEL VASQUEZ Comment: Interpretive Data ?AGE ? SEX ?REFERENCE INTERVAL 0 minutes-150 years ?Female ?None 0 minutes-49 years ? Male ?None ? 50-59 years ? Male ?0-3.90 ? 60-69 years ? Male ?0-5.40 ? 70-79 years ? Male ?0-6.20 ? 80-150 years ?Male ?0-6.20 The Melissa PSA Total assay procedure was used. Results from different manufacturers or methods may not be comparable. Serial testing should be performed using the same method. Current interpretive data last revised 21. Blood 11/13/2021 2:34 PM CDT 11/13/2021 6:01 PM CDT us Morris Busby MD LAB BLOOD ORDERABLES Padmini l Result Performing Organization Address [facility] de Phone Number SHMUEL VASQUEZ [address] [place] [address] * Albumin Creatinine Ratio, Urine (10/02/2021 8:25 AM CDT) Pathologist [facility] Creatinine, ur 212 20 - 320 mg/dL [facility] Microalbumin, ur 0.9 See Note: mg/dL [facility] Comment: Reference Range: Reference Range Not established Microalbumin/creat ratio 4 <30 mcg/mg creat [facility] Comment: The ADA defines abnormalities in albumin excretion as follows: Albuminuria Category ?Result (mcg/mg creatinine) Normal to Mildly increased ?? <30 Moderately increased ? 30-299 Severely increased ? > OR = 300 The ADA recommends that at least two of three specimens collected within a 3-6 month period be abnormal before considering a patient to be within a diagnostic category. Urine 10/02/2021 8:25 AM CDT 10/02/2021 8:26 AM CDT Narrative [facility] - 10/03/2021 12:15 PM CDT FASTING:YES FASTING: YES us Luis Enrique Ramos MD LAB URINE ORDERABLES Final R esult [facility] [address] [place] [address] from Last 3 Months or Most Recently Relevant to Health Maintenance Insurance ARANZA WATERMAN PREFERRED [employer] [employer] Care Teams Frit Coater Relationship Specialty Start Date End Date Morris Busby MD [address] [place] [address] PCP - General Family Medicine 11/13/21
--- OUTSIDE RECORDS SUMMARY | 2024-08-02 02:47 | XMS_ITS | Referral Summary ---
Author Organization [facility] Office Center Address [address] [place] [address] Care Team Providers Care Managed Care Coordinator Name Role Phone Morris Busby MD Primary Care Provider [phone] Allergies Active Allergy Reactions Criticality Noted Date [...] 2 diabetes mellitus without complication, unspecified whether termite treater insulin use (HCC) Use to check glucose [...] hyperglycemia, with long-term current use of insulin ([facility]) Use to continually monitor glucose, change every 10 days 9 each 1 023 Active Dexcom G6 Transmitter deviceIndications:T ype 2 diabetes mellitus with hyperglycemia, with long-term current use of insulin ([facility]) Use to continually monitor glucose, change every 90 days 1 each 1 023 Active Dexcom G6 Animal Care Giver miscIndications:Typ e 2 diabetes mellitus without complication, unspecified whether shelter insulin use ([facility]) Use to continually monitor glucose 1 each [...] Pneumococcal Polysaccharide PPV23 06/12/2015 ZOSTER Recombinant 04/30/2021 Social History Tobacco Use Types Packs/Day Years [...] on file Legal Sex Male 7:47 PM EMPLOYMENT LEGAL ASSISTANT Gender Identity Not on file Sexual Orientation Not on file 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 Not on file Last Filed Vital Signs Vital Sign Reading Time Taken Comments Blood Pressure 131/81 05/28/2022 9:29 AM EMPLOYMENT LEGAL ASSISTANT Pulse 79 05/28/2022 9:29 AM EMPLOYMENT LEGAL ASSISTANT Temperature 37.3 ??C (99.1 ??F) 05/28/2022 9:29 AM CS T Respiratory Rate - - Oxygen Saturation 98% 05/21/2022 3:48 PM EMPLOYMENT LEGAL ASSISTANT Inhaled Oxygen Concentration - - Weight 108.9 kg (240 lb) 05/28/2022 9:29 AM EMPLOYMENT LEGAL ASSISTANT Height 177.8 cm (5' 10 ) 05/28/2022 9:29 AM EMPLOYMENT LEGAL ASSISTANT Body Mass Index 34.44 05/28/2022 9:29 AM EMPLOYMENT LEGAL ASSISTANT Plan of Treatment Not on file Procedures Procedure Name Priority Date/Time Associated Diagnosis Comments EGFR Routine 08/20/2022 10:29 AM EMPLOYMENT LEGAL ASSISTANT Type 2 diabetes mellitus without complication, unspecified whether shelter insulin use (HCC) HEMOGLOBIN A1C Routine 08/20/2022 10:29 AM EMPLOYMENT LEGAL ASSISTANT Type 2 diabetes mellitus without complication, unspecified whether shelter insulin use (HCC) LIPID PANEL Routine 08/20/2022 10:29 AM EMPLOYMENT LEGAL ASSISTANT Type 2 diabetes mellitus without complication, unspecified whether shelter insulin use (HCC) PSA SCREEN Routine 11/13/2021 2:34 PM CDT Prostate cancer screening ALBUMIN CREATININE RATIO, URINE Routine 10/02/2021 8:25 AM CDT Type 2 diabetes mellitus without complication, unspecified whether termite treater insulin use (HCC) from Last 3 Months or Most Recently Relevant to Health Maintenance Results * eGFR (08/20/2022 10:29 AM EMPLOYMENT LEGAL ASSISTANT) [facility] eGFR 104 mL/min/1. 73 m2 SHMUEL VASQUEZ [...] Inclusion of Race in Diagnosing Kidney Disease, JASN 202). The CKD-EPI equation should not be used for patients with unstable renal function and has not been validated in children and those over 70. Current interpretive data was last reviewed 2021. Blood 08/20/2022 10:2 9 AM EMPLOYMENT LEGAL ASSISTANT 08/20/2022 2:54 PM EMPLOYMENT LEGAL ASSISTANT Morris Busby MD LAB BLOOD ORDERABLES Padmini l Result Performing Organization Address [facility] de Phone Number SHMUEL PEDRO [address] [place] [address] * (ABNORMAL) Hemoglobin A1c (08/20/2022 10:29 AM EMPLOYMENT LEGAL ASSISTANT) Hgb A1C 8.1(H) 4.0 - 5.6 % SHMUEL VASQUEZ Estimated Average Glucose 186 mg/dL SHMUEL VASQUEZ Comment: The ADA recommends reporting an estimated Average Glucose (eAG) with all Hemoglobin A1c results using the equation derived from a study of 507 normal and diabetic adults. ??Minority populations were underrepresented and children were not included. ?? (Diabetes Care 31:6487-8512, 2008). ??The eAG is not equivalent to a fasting glucose. Blood 08/20/2022 10:2 9 AM EMPLOYMENT LEGAL ASSISTANT 08/20/2022 2:51 PM EMPLOYMENT LEGAL ASSISTANT Morris Busby MD LAB BLOOD ORDERABLES Padmini l Result Performing Organization Address [facility] de Phone Number SHMUEL VASQUEZ [id number] [place] [address] * (ABNORMAL) Lipid panel (08/20/2022 10:29 AM EMPLOYMENT LEGAL ASSISTANT) Cholesterol 168 30 - 199 mg/dL SHMUEL [...] on 2018. Triglycerides 519(H) <=149 mg/dL SHMUEL Comment: Interpretive Data Ages < [...] on 2018. HDL 34(L) >=40 mg/dL SHMUEL Comment: Interpretive Data Ages < [...] last revised on 2018. Chol/HDL ratio 5 HARDIKNER Blood 08/20/2022 10:2 9 AM EMPLOYMENT LEGAL ASSISTANT 08/20/2022 2:51 PM EMPLOYMENT LEGAL ASSISTANT Morris Busby MD LAB BLOOD ORDERABLES Padmini l Result SHMUEL [address] Department [place] [address] * PSA screen (11/13/2021 2:34 PM CDT) PSA-Total 0.17 <=3.90 ng/mL SHMUEL Comment: Interpretive Data ?AGE ? SEX ?REFERENCE [...] 2:34 PM CDT 11/13/2021 6:01 PM CDT Result [facility] Morris Busby MD LAB BLOOD ORDERABLES Padmini l Result SHMUEL [address] Department [place] [address] * Albumin Creatinine Ratio, Urine (10/02/2021 8:25 AM CDT) Creatinine, ur 212 20 - 320 mg/dL [...] MD LAB URINE ORDERABLES Final R esult [facility] [employer] [facility] [address] [facility] [place] [address] from Last 3 Months or Most Recently Relevant to [place] [address] ARANZA WATERMAN PREFERRED [employer] PREFERRED MEDICARE [facility] Address: [address] [address] [place] [address] [employer] Care Teams Managed Care Coordinator Relationship Specialty Start Date End Date Morris Busby MD [address] [place] [address] PCP - General Family Medicine 11/13/21
--- NOTE | 2024-08-02 02:55 | ECG_ITS ---
Test Date: 2024-08-02 02:59:04 Measurements Intervals [place] Rate: 115 P: 37 GA: 174 QRS: 41 QRSD: 79 T: 25 QT: 306 QTc: 423 Interpretive Statements SINUS TACHYCARDIA LOW QRS VOLTAGE IN PRECORDIAL LEADS [QRS DEFLECTION < 1.0 mV IN CHEST LEADS] Poor R wave progression No previous ECG available for comparison Electronically Signed On 08-02-2024 21:20:47 RN GYNECOLOGY by Lora Bell M.D.
[2024-08-02 03:12] LABS: Glucose Point of Care 302 mg/dl (65-105)
--- NOTE | 2024-08-02 03:14 | PC.NURSE ---
formal waiter/waitress notified of patient fall and head injury with loc. Orders to have patient come back next. Patient taken to Room 6.
[2024-08-02 03:18] LABS: Basophils Percent Auto 0.4 % (0.2-1.2); Eosinophils Absolute Auto 0.1 K/mm3 (0-0.3); Eosinophils Percent Auto 1.4 % (0-4.4); Hematocrit 39.3 % (42.0-52.0); Hemoglobin 12.9 g/dL (14.0-18.0); Immature Granulocyte Absolute 0.02 K/mm3 (0.00-0.031); Immature Granulocyte Percent A 0.2 % (0-0.5); Lymphocytes Absolute Auto 2.88 K/mm3 (0.9-3.2); Lymphocytes Percent Auto 28.6 % (18.3-44.2); Mean Corpuscular HGB Conc 32.8 g/dl (32-36); Mean Corpuscular Hemoglobin 30.6 pg (26-34); Mean Corpuscular Volume 93.3 fl (80-100); Mean Platelet Volume 10.8 fl (7.4-10.4); Monocytes Absolute Auto 0.7 K/mm3 (0.1-0.6); Monocytes Percent Auto 7.3 % (2.6-8.5); Neutrophils Absolute Auto 6.3 K/mm3 (1.3-6.7); Neutrophils Percent Auto 62.1 % (45.5-73.1); Platelet Count Result 197 k/mm3 (150-375); Red Blood Count 4.21 M/mm3 (4.6-6.20); Red Cell Distribution Width 13.2 % (11.5-14.5); White Blood Count 10.1 K/mm3 (4.5-10.0)
[2024-08-02 03:28] LABS: Alanine Aminotransferase 19 U/L (6-50); Albumin Level 3.9 g/dL (3.5-5.1); Alkaline Phosphatase 63 U/L (38-126); Anion Gap 12 mmol/L (4-12); Aspartate Amino Transferase 19 U/L (17-59); Bilirubin,Total 0.3 mg/dL (0.2-1.3); Blood Urea Nitrogen 25 mg/dL (9-20); Calcium 8.4 mg/dL (8.4-10.2); Carbon Dioxide 21 mmol/L (22-30); Chloride 106 mmol/L (98-107); Estimated CRCL calculation 71 ml/min; Estimated Glomerular Filt Rate > 60; Glucose 280 mg/dL (65-110); Potassium 3.1 mmol/L (3.4-5.0); Sodium 139 mmol/L (137-145)
[2024-08-02] MEDS: LACTATED RINGERS 1,000 ML 999 ML IV CONT ×2 (03:52→10:40)
[2024-08-02 03:57] LABS: Influenza A QL RT-PCR Negative (Negative); Influenza B QL RT-PCR Negative (Negative); RSV RNA, RT-PCR Negative (Negative); SARS-CoV-2 RNA PCR Negative (Negative)
[2024-08-02] MEDS: IPRATROPIUM BR 0.02% INH SOLN 0.5 MG/2.5 ML VIAL 1 MG INHALATION (04:07)
[2024-08-02] MEDS: ALBUTEROL SULFATE NEB 2.5 MG/3 ML INH 10 MG INHALATION (04:07)
[2024-08-02] MEDS: methylPREDNISolone SOD SUCC 40 MG VIAL IV PUSH (04:14)
[2024-08-02] MEDS: MAGNESIUM SULF 2 GM/WATER 50ML 2 GM/50 ML BAG IVPB (04:14)
[2024-08-02] MEDS: TETANUS,DIPHTHERIA,AC PERTUSSIS ADULT (0.5 ML) BOOSTRIX IM (04:15)
[2024-08-02 05:24] LABS: Troponin I 0.187 ng/mL (0.000-0.034)
--- NOTE | 2024-08-02 06:03 | ECG_ITS ---
Test Date: 2024-08-02 06:07:35 Measurements Intervals [place] Rate: 114 P: 39 PA: 136 QRS: 51 QRSD: 94 T: 39 QT: 321 QTc: 443 Interpretive Statements SINUS TACHYCARDIA LOW QRS VOLTAGE IN PRECORDIAL LEADS [QRS DEFLECTION < 1.0 mV IN CHEST LEADS] POSSIBLE ANTERIOR MYOCARDIAL INFARCTION , OF INDETERMINATE AGE [30 ms Q WAVE IN V3/V4, OR R < 0.2 mV IN V4] Compared to ECG 08/02/2024 02:59:04 No significant changes Electronically Signed On 08-02-2024 21:19:55 RN DISCHARGE by Lora Bell M.D.
--- OUTSIDE RECORDS SUMMARY | 2024-08-02 06:07 | XMS_ITS | Encounter Summary ---
Author Organization [facility] Address [address] [place] [address]. [place], [place] [address] [place] [address] Care Team Providers Care Elementary Instructional Coach Name Role Phone Reuben Padilla MD Primary Care Provider [phone] Encounter Details Date Type Department Care Team (Late st Contact Info) Description 07/17/2023 [employer] Message Enc [facility] Medical [facility] Multispecialty Care - [address] [place], [place] [id number] [facility], [facility] Provider Test results Social History [...] st Contact Info) Description 09/03/2024 8:00 PM COPPING MACHINE OPERATOR Appointment [facility] [address] [place] [address] Gabe Vázquez, DO [address] [place] [address] 10/06/2024 9:00 AM CDT Office Visit [facility] Medical Group Multispecialty Care - [place] 1188 [facility] [address] [place] [address] Reuben Padilla MD [address] [address] 01/24/2025 9:00 AM CDT Office Visit [facility] Multispecialty Care - [facility] [address] [place] [address] Gabe Vázquez DO [address] [facility] [address] [place] [address] documented as of this encounter Visit Diagnoses Not on filedocumented in this encounter Additional Health Concerns Assessment Noted Time PHQ-9 Depression Total Score: 6 07/16/19 24 1:42 PM COPPING MACHINE OPERATOR documented as of this encounter Care Teams Elementary Instructional Coach Relationship Specialty [place] [address] [place] [address] PCP - General INTERNAL MEDICINE 12/04/22 documented as of this encounter
--- OUTSIDE RECORDS SUMMARY | 2024-08-02 06:07 | XMS_ITS | Encounter Summary ---
Author Organization [facility] Address [address] [place] [address]. [place], [place] [address] [place] [address] Care Team Providers Care Emergency Telecommunications Dispatcher Name Role Phone Reuben Padilla MD Primary Care Provider Encounter Details Date Type Department Care Team (Late st Contact Info) Description 10/21/2023 [employer]ob[employer] Message Enc [facility] Medical [facility] Multispecialty Care - [address] [place], [place] [address] [facility] Provider EKG Social History Tobacco Use [...] st Contact Info) Description 09/03/2024 8:00 PM LIBRARY CLERK TALKING BOOKS Appointment [facility] [address] [place] [address] Gabe Vázquez DO [address] [place] [address] 10/06/2024 9:00 AM CDT Office Visit [facility] Medical Group Multispecialty Care - [place] 1188 [facility] [address] [place] [address] Reuben Padilla MD [address] [address] 01/24/2025 9:00 AM CDT Office [facility] Multispecialty Care - [facility] [address] [place] [address] Gabe Vázquez DO 3 [facility] [address] [place] [address] documented as of this encounter Visit Diagnoses Not on filedocumented in this encounter Additional Health Concerns Assessment Noted Time PHQ-9 Depression Total Score: 6 07/16/19 24 1:42 PM LIBRARY CLERK TALKING BOOKS documented as of this encounter Care Teams Emergency Telecommunications Dispatcher Relationship Specialty [place] [address] [place] [address] PCP - General INTERNAL MEDICINE 12/04/22 documented as of this encounter
--- OUTSIDE RECORDS SUMMARY | 2024-08-02 06:07 | XMS_ITS | Encounter Summary ---
Author Organization [facility] Address [address] [place] [address]. [place], [place] [address] [place] [address] Care Team Providers Care Regulatory Associate Name Role Phone Reuben Padilla MD Primary Care Provider Encounter Details Date Type Department Care Team (Late st Contact Info) Description 08/01/2023 MyChart Message Enc [facility] Medical Group Multispecialty Care - [place] [address] [address] [place] [address] Reuben Padilla MD [address] [place] [address] 157 [place] [address] [employer] Social History Tobacco Use Types Packs/Day [...] st Contact Info) Description 09/03/2024 8:00 PM LENS EXAMINER Appointment [facility] [address] [place] [address] Gabe Vázquez DO [address] [place] [address] 10/06/2024 9:00 AM CDT Office Visit [facility] Medical Group Multispecialty Care - [address] [place] [address] Reuben Padilla MD 1188 [facility] 157 [place] [address] 01/24/2025 9:00 AM CDT Office Visit [facility] Medical Group Multispecialty Care - [facility] [address] [place] [address] Gabe Vázquez DO [address] [facility] [address] [place] [address] documented as of this encounter Visit Diagnoses Not on filedocumented in this encounter Additional Health Concerns Assessment Noted Time PHQ-9 Depression Total Score: 6 07/16/19 24 1:42 PM LENS EXAMINER documented as of this encounter Care Teams Regulatory Associate Relationship Specialty Start Date End Date Reuben Padilla MD [address] [place] [address] PCP - General INTERNAL MEDICINE 12/04/22 documented as of this encounter
--- OUTSIDE RECORDS SUMMARY | 2024-08-02 06:07 | XMS_ITS | Encounter Summary ---
Author Organization [facility] Address [address] [place] [address]. [place], [place] [address] [place] [address] Care Team Providers Care Salesperson Jewelry Name Role Phone Reuben Padilla MD Primary Care Provider [phone] Encounter Details Date Type Department Care Team (Late st Contact Info) Description 01/31/2023 [employer] Message Enc [facility] Medical [facility] Multispecialty Care - [address] [place] [address] [facility], [facility] Provider Lab results Social History Tobacco Use [...] st Contact Info) Description 09/03/2024 8:00 PM HOSE INSPECTOR Appointment [facility] [address] [place] [address] Gabe Vázquez, DO [address] [place] [address] 10/06/2024 9:00 AM CDT Office Visit [facility] Medical Group Multispecialty Care - [place] 1188 [facility] [address] [place] [address] Reuben Padilla MD [address] [address] 01/24/2025 9:00 AM CDT Office Visit [facility] Multispecialty Care - [facility] [address] [place] [address] Gabe Vázquez DO 3 [facility] [address] [place] [address] documented as of this encounter Visit Diagnoses Not on filedocumented in this encounter Additional Health Concerns Assessment Noted Time PHQ-9 Depression Total Score: 19 023 2:28 PM CDT documented as of this encounter Care Teams Salesperson Jewelry Relationship Specialty [place] [address] [place] [address] PCP - General INTERNAL MEDICINE 12/04/22 documented as of this encounter
--- OUTSIDE RECORDS SUMMARY | 2024-08-02 06:08 | XMS_ITS | Encounter Summary ---
Author Organization [facility] Address [address] [place] [address]. [place], [place] [address] [place] [address] Care Team Providers Care Tick Sewer Name Role Phone Reuben Padilla MD Primary Care Provider [phone] Encounter Details Date Type Department Care Team (Late st Contact Info) Description 11/03/2023 MyChart Message Enc [facility] Medical Group Multispecialty Care - [place] [address] [address] [place] [address] Reuben Padilla MD [address] [place] [address] 157 [place] [address] Dr Joya Social History Tobacco Use Types [...] st Contact Info) Description 09/03/2024 8:00 PM SOLUTION DESIGN ENGINEER Appointment [facility] [address] [place], [place] [address] Gabe Vázquez DO [address] [place] [address] 10/06/2024 9:00 AM CDT Office Visit [facility] Medical Group Multispecialty Care - [address] [place] [address] Reuben Padilla MD 1188 [facility] 157 [place] [address] 01/24/2025 9:00 AM CDT Office Visit [facility] Medical Group [facility]pec[facility] - [facility] [address] [facility] [address] [place] [address] Gabe Vázquez DO [address] [facility] [address] [place] [address] documented as of this encounter Visit Diagnoses Not on filedocumented in this encounter Additional Health Concerns Assessment Noted Time PHQ-9 Depression Total Score: 6 07/16/19 24 1:42 PM SOLUTION DESIGN ENGINEER documented as of this encounter Care Teams Tick Sewer Relationship Specialty Start Date End Date Reuben Padilla MD [address] [place] [address] PCP - General INTERNAL MEDICINE 12/04/22 documented as of this encounter
--- OUTSIDE RECORDS SUMMARY | 2024-08-02 06:08 | XMS_ITS | Encounter Summary ---
Author Organization [facility] Address [address] [place] [address]. [place], [place] [address] [place] [address] Care Team Providers Care Personnel Manager Name Role Phone Reuben Padilla MD Primary Care Provider [phone] Encounter Details Date Type Department Care Team (Latest Contact Info) Description 07/14/[address] [facility] Medical Group Multispecialty Care - [facility] [address] [place] [address] Gabe Vázquez DO [address] [place], [place] [address] Xray for Pedrito Mcneill Social History Tobacco [...] st Contact Info) Description 09/03/2024 8:00 PM DISTRICT HOME ECONOMICS AGENT Appointment [facility] [address] [place] [address] Gabe Vázquez DO 3 [facility] [address] [place] [address] 10/06/2024 9:00 AM CDT Office Visit [facility] Medical Group Multispecialty Care - [place] [address] [address] [place] [address] [place] [address] [place] [address] 01/24/2025 9:00 AM CDT [facility] [address] [facility] [address] [place] [address] Gabe Vázquez DO 3 [facility] [address] [place] [address] documented as of this encounter Visit Diagnoses Not on filedocumented in this encounter Additional Health Concerns Assessment Noted Time PHQ-9 Depression Total Score: 6 07/16/19 24 1:42 PM DISTRICT HOME ECONOMICS AGENT documented as of this encounter Care Teams Personnel Manager Relationship Specialty Start [place] [address] [place] [address] PCP - General INTERNAL MEDICINE 12/04/22 documented as of this encounter
--- OUTSIDE RECORDS SUMMARY | 2024-08-02 06:08 | XMS_ITS | Encounter Summary ---
Author Organization [facility] Address [address] [place] [address]. [place], [place] [address] [place] [address] Care Team Providers Care Tinsel Machine Operator Name Role Phone Reuben Padilla MD Primary Care Provider [phone] Encounter Details Date Type Department Care Team (Late st Contact Info) Description 12/09/2023 Content[employer]timehart Message Enc [facility] Medical Group Multispecialty Care - [place] [address] [address] [place] [address] Reuben Padilla MD [address] [place] [address] 157 [place] [address] CPAP Social History Tobacco Use Types Packs/Day [...] st Contact Info) Description 09/03/2024 8:00 PM HEAD OF MARKETING ANALYTICS Appointment [facility] [address] [place], [place] [address] Gabe Vázquez DO [address] [place] [address] 10/06/2024 9:00 AM CDT Office Visit [facility] Medical Group Multispecialty Care - [address] [place] [address] Reuben Padilla MD 1188 [facility] 157 [place] [address] 01/24/2025 9:00 AM CDT Office [facility] Mult[facility]pecialty Care - [facility] [address] [place] [address] Gabe Vázquez DO 3 [facility] [address] [place] [address] documented as of this encounter Visit Diagnoses Not on filedocumented in this encounter Additional Health Concerns Assessment Noted Time PHQ-9 Depression Total Score: 6 07/16/19 24 1:42 PM HEAD OF MARKETING ANALYTICS documented as of this encounter Care Teams Tinsel Machine Operator Relationship Specialty Start Date End Date Reuben Padilla MD [address] [place] [address] PCP - General INTERNAL MEDICINE 12/04/22 documented as of this encounter
--- OUTSIDE RECORDS SUMMARY | 2024-08-02 06:08 | XMS_ITS | Encounter Summary ---
Author Organization [facility] Address [address] [place] [address]. [place], [place] [address] [place] [address] Care Team Providers Care Sanding Machine Buffer Name Role Phone Reuben Padilla MD Primary Care Provider [phone] Encounter Details Date Type Department Care Team (Late st Contact Info) Description 01/02/2024 [employer] Message Enc [facility] Medical Group Multispecialty Care - [place] [address] [address] [place] [address] Reuben Padilla MD [address] [place] [address] 157 [place] [address] Sejal Social History Tobacco Use Types Packs/Day [...] st Contact Info) Description 09/03/2024 8:00 PM FINISHING MACHINE TENDER Appointment [facility] [address] [place] [address] Gabe Vázquez DO [address] [place] [address] 10/06/2024 9:00 AM CDT Office Visit [facility] Medical Group Multispecialty Care - [address] [place] [address] Reuben Padilla MD 1188 [facility] 157 [place] [address] 01/24/2025 9:00 AM CDT Office Visit [facility] Medical Group Multispecialty Care - [facility] [address] [place] [address] Gabe Vázquez DO [address] [facility] [address] [place] [address] documented as of this encounter Visit Diagnoses Not on filedocumented in this encounter Additional Health Concerns Assessment Noted Time PHQ-9 Depression Total Score: 6 07/16/19 24 1:42 PM FINISHING MACHINE TENDER documented as of this encounter Care Teams Sanding Machine Buffer Relationship Specialty [place] [address] [place] [address] 157 [place] [address] PCP - General INTERNAL MEDICINE 12/04/22 documented as of this encounter
--- OUTSIDE RECORDS SUMMARY | 2024-08-02 06:08 | XMS_ITS | Encounter Summary ---
Author Organization [facility] Address [address] [place] [address] Care Team Providers Care Flange Machine Operator Name Role Phone Jordan Pak MD Primary Care Provider [phone] Morris Busby MD Primary Care Provider [phone] Encounter Details Date Type Department Care Team (Late st Contact Info) Description 04/14/2020 Telephone [facility] [address] [place] [address] Jv Bray, RT Social History Tobacco Use Types Packs/Day Years Used Date Smoking Tobacco: Never Smokeless Tobacco: Never Alcohol Use Standard Drinks/Week Comments Yes 0 (1 standard drink = 0.6 oz pur e alcohol) Sex and Gender Information Value Date Recorded Sex Assigned at Not on file Legal Sex Male 7:47 PM TERRITORY SALES EXECUTIVE Gender Identity Not on file Sexual Orientation Not on file 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
--- OUTSIDE RECORDS SUMMARY | 2024-08-02 06:08 | XMS_ITS | Encounter Summary ---
Author Organization [facility] Address [address] [place] [address]. [place], [place] [address] [place] [address] Care Team Providers Care Microsoft Dynamics Ax Developer Name Role Phone Reuben Padilla MD Primary Care Provider [phone] Encounter Details Date Type Department Care Team (Late st Contact Info) Description 05/27/2024 Seisquarehart Message Enc [facility] Medical Group Multispecialty Care - [place] [address] [address] [place] [address] Reuben Padilla MD [address] [place] [address] 157 [place] [address] Dexcom Social History Tobacco Use Types Packs/Day [...] st Contact Info) Description 09/03/2024 8:00 PM AIR VALVE MECHANIC Appointment [facility] [address] [place], [place] [address] Gabe Vázquez DO [address] [place] [address] [place] [address] 10/06/2024 9:00 AM CDT Office Visit [facility] Medical Group Multispecialty Care - [address] [place] [address] Reuben Padilla MD [address] [facility] 157 [place] [address] 01/24/2025 9:00 AM CDT Office Visit [facility] Medical Group Multispecialty Care - [facility] [address] [place] [address] Gabe Vázquez DO [address] [facility] [address] [place] [address] documented as of this encounter Visit Diagnoses Not on filedocumented in this encounter Additional Health Concerns Assessment Noted Time PHQ-9 Depression Total Score: 6 07/16/19 24 1:42 PM AIR VALVE MECHANIC documented as of this encounter Care Teams Microsoft Dynamics Ax Developer Relationship Specialty Start Date End Date Reuben Padilla MD [address] [place] [address] PCP - General INTERNAL MEDICINE 12/04/22 documented as of this encounter
--- OUTSIDE RECORDS SUMMARY | 2024-08-02 06:08 | XMS_ITS | Encounter Summary ---
Author Organization [facility] Address [address] [place] [address]. [place], [place] [address] [place] [address] Care Team Providers Care Quality Systems Engineer Name Role Phone Reuben Padilla MD Primary Care Provider [phone] Encounter Details Date Type Department Care Team (Late st Contact Info) Description 12/09/2023 [email or web address] Message Enc [facility] Medical Group Multispecialty Care - [place] [address] [address] [place] [address] [place] [address] [place] [address] 157 [place] [address] CPAP machine Social History Tobacco Use Types [...] st Contact Info) Description 09/03/2024 8:00 PM RANGE MOUNTER Appointment [facility] [address] [place], [place] [address] Gabe Vázquez DO [address] [place] [address] 10/06/2024 9:00 AM CDT Office Visit [facility] Medical Group Multispecialty Care - [address] [place] [address] Reuben Padilla MD 1188 [facility] 157 [place] [address] 01/24/2025 9:00 AM CDT Office Visit [facility] Medical Group Multispecialty Care - [facility] [address] [place] [address] Gabe Vázquez DO 3 [facility] [address] [place] [address] documented as of this encounter Visit Diagnoses Not on filedocumented in this encounter Additional Health Concerns Assessment Noted Time PHQ-9 Depression Total Score: 6 07/16/19 24 1:42 PM RANGE MOUNTER documented as of this encounter Care Teams Quality Systems Engineer Relationship Specialty Start Date End Date Reuben Padilla MD [address] [place] [address] PCP - General INTERNAL MEDICINE 12/04/22 documented as of this encounter
--- OUTSIDE RECORDS SUMMARY | 2024-08-02 06:08 | XMS_ITS | Referral Summary ---
Author Organization [facility] Office Center Address [address] [place] [address] Care Team Providers Care Application Development Specialist Name Role Phone Morris Busby MD Primary Care Provider [phone] Allergies Active Allergy Reactions Criticality Noted Date [...] diabetes mellitus without complication, unspecified whether termite control service representative insulin use (HCC) Use to check glucose [...] hyperglycemia, with long-term current use of insulin ([facility]) Use to continually monitor glucose, change every 10 days 9 each 1 023 Active Dexcom G6 Transmitter deviceIndications:T ype 2 diabetes mellitus with hyperglycemia, with long-term current use of insulin ([facility]) Use to continually monitor glucose, change every 90 days 1 each 1 023 Active Dexcom G6 [employer] Former miscIndications:Typ e 2 diabetes mellitus without complication, unspecified whether senior living insulin use ([facility]) Use to continually monitor glucose [...] on file Legal Sex Male 7:47 PM UTILITY ACCOUNTS DIRECTOR Gender Identity Not on file Sexual Orientation Not on file 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 Not on file Last Filed Vital Signs Vital Sign Reading Time Taken Comments Blood Pressure 131/81 05/28/2022 9:29 AM UTILITY ACCOUNTS DIRECTOR Pulse 79 05/28/2022 9:29 AM UTILITY ACCOUNTS DIRECTOR Temperature 37.3 ??C (99.1 ??F) 05/28/2022 9:29 AM CS T Respiratory Rate - - Oxygen Saturation 98% 05/21/2022 3:48 PM UTILITY ACCOUNTS DIRECTOR Inhaled Oxygen Concentration - - Weight 108.9 kg (240 lb) 05/28/2022 9:29 AM UTILITY ACCOUNTS DIRECTOR Height 177.8 cm (5' 10 ) 05/28/2022 9:29 AM UTILITY ACCOUNTS DIRECTOR Body Mass Index 34.44 05/28/2022 9:29 AM UTILITY ACCOUNTS DIRECTOR Plan of Treatment Not on file Procedures Procedure Name Priority Date/Time Associated Diagnosis Comments EGFR Routine 08/20/2022 10:29 AM UTILITY ACCOUNTS DIRECTOR Type 2 diabetes mellitus without complication, unspecified whether senior living insulin use (HCC) HEMOGLOBIN A1C Routine 08/20/2022 10:29 AM UTILITY ACCOUNTS DIRECTOR Type 2 diabetes mellitus without complication, unspecified whether senior living insulin use (HCC) LIPID PANEL Routine 08/20/2022 10:29 AM UTILITY ACCOUNTS DIRECTOR Type 2 diabetes mellitus without complication, unspecified whether senior living insulin use (HCC) PSA SCREEN Routine 11/13/2021 2:34 PM CDT Prostate cancer screening ALBUMIN CREATININE RATIO, URINE Routine 10/02/2021 8:25 AM CDT Type 2 diabetes mellitus without complication, unspecified whether termite control service representative insulin use (HCC) from Last 3 Months or Most Recently Relevant to Health Maintenance Results * eGFR (08/20/2022 10:29 AM UTILITY ACCOUNTS DIRECTOR) [facility] eGFR 104 mL/min/1. 73 m2 SHMUEL VASQUEZ [...] reviewed 2021. Blood 08/20/2022 10:2 9 AM UTILITY ACCOUNTS DIRECTOR 08/20/2022 2:54 PM UTILITY ACCOUNTS DIRECTOR Morris Busby MD LAB BLOOD ORDERABLES Padmini l Result Performing Organization Address [facility] de Phone Number SHMUEL PEDRO [address] [place] [address] * (ABNORMAL) Hemoglobin A1c (08/20/2022 10:29 AM UTILITY ACCOUNTS DIRECTOR) Hgb A1C 8.1(H) 4.0 - 5.6 % SHMUEL VASQUEZ Estimated Average Glucose 186 mg/dL SHMUEL VASQUEZ Comment: The ADA recommends reporting an estimated Average Glucose (eAG) with all Hemoglobin A1c results using the equation derived from a study of 507 normal and diabetic adults. ??Minority populations were underrepresented and children were not included. ?? (Diabetes Care 31:2084-0549, 2008). ??The eAG is not equivalent to a fasting glucose. Blood 08/20/2022 10:2 9 AM UTILITY ACCOUNTS DIRECTOR 08/20/2022 2:51 PM UTILITY ACCOUNTS DIRECTOR Morris Busby MD LAB BLOOD ORDERABLES Padmini l Result Performing Organization Address [facility] de Phone Number SHMUEL VASQUEZ [address] [place] [address] * (ABNORMAL) Lipid panel (08/20/2022 10:29 AM UTILITY ACCOUNTS DIRECTOR) Cholesterol 168 30 - 199 mg/dL SHMUEL [...] 5 HARDIKNER Blood 08/20/2022 10:2 9 AM UTILITY ACCOUNTS DIRECTOR 08/20/2022 2:51 PM UTILITY ACCOUNTS DIRECTOR Morris Busby MD LAB BLOOD ORDERABLES Padmini l Result SHMUEL [id number] [address] Department [place] [address] * PSA screen (11/13/2021 2:34 PM CDT) [...] PM CDT 11/13/2021 6:01 PM CDT Result [facility] Morris Busby MD LAB BLOOD ORDERABLES Padmini l Result SHMUEL [address] [address] Department [place] [address] * Albumin Creatinine Ratio, Urine (10/02/2021 8:25 [...] LAB URINE ORDERABLES Final R esult ANITA Cream.HR Faustino-Madyson [address] [address] [facility] [place] [address] from Last 3 Months or Most Recently Relevant to [place] [address] ARANZA WATERMAN PREFERRED [employer] [place] [address] [employer] [place] PREFERRED Care Teams Application Development Specialist Relationship Specialty Start Date End Date Morris Busby MD [address] [place] [address] PCP - General Family Medicine 11/13/21
--- OUTSIDE RECORDS SUMMARY | 2024-08-02 06:08 | XMS_ITS | Encounter Summary ---
Author Organization [facility] Address [address] [place] [address]. [place], [place] [address] [place] [address] Care Team Providers Care Allocation Analyst Name Role Phone Reubne Padilla MD Primary Care Provider [phone] Encounter Details Date Type Department Care Team (Latest Contact Info) Description 10/28/2023 MyChart Message Enc [facility] Medical Group Multispecialty Care - [address] [place], [place] [id number] [place] [address] [place] [address] [address] [place] [address] most recent labs Social History Tobacco Use [...] 11:48 AM CDT Labs successfully faxed to [phone]. documented in this encounter Plan of Treatment Upcoming Encounters Date Type Department Care Team ( Contact Info) Description 09/03/2024 8:00 PM AFRICANA STUDIES PROFESSOR Appointment [facility] [address] [place] [address] Gabe Vázquez DO [address] [place] [address] 10/06/2024 9:00 AM CDT Office Visit [facility] Medical [facility] Multispecialty [facility] [place] [address] [address] [place] [address] Reuben Padilla MD [address] [place] [address] 01/24/2025 9:00 AM CDT Office Visit [facility] [address] [place] [address] Gabe Vázquez DO [address] [facility] [place] [address] documented as of this encounter Visit Diagnoses Not on filedocumented in this encounter Additional Health Concerns Assessment Noted Time PHQ-9 Depression Total Score: 6 07/16/19 24 1:42 PM AFRICANA STUDIES PROFESSOR documented as of this encounter Care Teams Allocation Analyst Relationship Specialty Start Date End Date Reuben Padilla MD [address] [place] [address] PCP - General INTERNAL MEDICINE 12/04/22 documented as of this encounter
--- OUTSIDE RECORDS SUMMARY | 2024-08-02 06:08 | XMS_ITS | Encounter Summary ---
Author Organization [facility] Address [address] [place] [address]. [place], [place] [address] [place] [address] Care Team Providers Care Military Analyst Name Role Phone Reuben Padilla MD Primary Care Provider [phone] Encounter Details Date Type Department Care Team (Late st Contact Info) Description 06/02/2024 Scint-Xhart Message Enc [facility] Medical Group Multispecialty Care - [place] [address] [address] [address] [place], [place] [phone] Reuben Padilla MD [address] [place] [address] [address] [place] [address] Krzysztof Social History Tobacco Use Types Packs/Day [...] st Contact Info) Description 09/03/2024 8:00 PM VERIFICATION REP Appointment [facility] [address] [place] [address] Gabe Vázquez DO [address] [place] [address] 10/06/2024 9:00 AM CDT Office Visit [facility] Medical Group Multispecialty Care - [address] [place] [address] Reuben Padilla MD [address] [place] [address] 01/24/2025 9:00 AM CDT Office Visit [facility] Medical Group Multispecialty Care - [facility] [address] [place] [address] Gabe Vázquez DO [address] [facility] [address] [place] [address] documented as of this encounter Visit Diagnoses Not on filedocumented in this encounter Additional Health Concerns Assessment Noted Time PHQ-9 Depression Total Score: 6 07/16/19 24 1:42 PM VERIFICATION REP documented as of this encounter Care Teams Military Analyst Relationship Specialty Start Date End Date Reuben Padilla MD [address] [place] [address] PCP - General INTERNAL MEDICINE 12/04/22 documented as of this encounter
--- OUTSIDE RECORDS SUMMARY | 2024-08-02 06:08 | XMS_ITS | Clinical Summary ---
Author Organization [facility] Address [address] [place] [address]. [place], [place] [address] [place] [address] Care Team Providers Care Health Science Instructor Name Role Phone Reuben Padilla MD Primary Care Provider [phone] Allergies Active Allergy Reactions Criticality Noted Date [...] hyperglycemia, without long-term current use of insulin ([facility]) Chew 1 tablet (81 mg total) by mouth daily. 30 tablet 3 Active Insulin Pen Needle 31G X 8 MM MiscIndications :Type 2 diabetes mellitus with hyperglycemia, without long-term current use of insulin ([facility]) Use daily to dispense Toujeo. 100 each 11 3 Active fluticasone propionate (FLONASE) 50 MCG/ACT nasal sprayIndication s:Chronic obstructive pulmonary disease, unspecified COPD type ([facility]) 1 spray by Each Nostril route daily. 16 g 5 4 Active fluticasone-ashkan meterol (ADVAIR DISKUS) 250-50 MCG/ACT inhalerIndicati ons:Chronic obstructive pulmonary disease, unspecified COPD type ([facility] HHS/HCC) Inhale 1 puff into the lungs 2 (two) times daily. 60 each 5 4 Active CPAP DEVICE, DME,Indications :GRANT (obstructive sleep apnea) [facility]. 1 Device 4 Active cyclobenzaprine (FLEXERIL) 10 MG tabletIndicatio ns:Chronic midline low back pain, unspecified whether sciatica present Take 1 tablet (10 mg total) by mouth daily. 90 tablet 1 4 Active buPROPion XL (WELLBUTRIN XL) 150 MG 24 hr tabletIndicatio ns:Moderate episode of recurrent major depressive disorder ([facility] HHS/HCC) Take 1 tablet (150 mg [...] hyperglycemia, without long-term current use of insulin ([facility] HHS/HCC) TAKE 1 TABLET BY MOUTH [...] ons:Moderate episode of recurrent major depressive disorder ([facility]) Take 1 capsule (40 mg total) by mouth daily. 90 capsule 1 4 Active rOPINIRole (REQUIP) 1 MG tabletIndicatio ns:RLS (restless legs syndrome) TAKE 1 TABLET 3 TIMES A DAY 90 tablet 1 4 Active Continuous Glucose Hand Patcher (DEXCOM G6 ORACLE DATABASE ADMINISTRATOR) DeviceIndicatio ns:Type 2 diabetes mellitus without complication, with long-term current use of insulin ([facility]) Use daily to check blood sugar as directed. 1 each 3 4 Active Continuous Glucose Sensor (DEXCOM G6 SENSOR) MiscIndications :Type 2 diabetes mellitus without complication, with long-term current use of insulin ([facility]) Use daily to check blood sugar as directed. 3 each 12 4 Active Continuous Glucose Transmitter (DEXCOM G6 TRANSMITTER) MiscIndications :Type 2 diabetes mellitus without complication, with long-term current use of insulin ([facility]) USE DIRECTED TO CHECK BLOOD SUGAR DAILY 1 each 11 4 Active Active Problems Problem Noted Date Diagnosed Date Hyperlipidemia associated wi th type 2 diabetes mellitus ([facility]) 01/28/2023 Hypertension associated with type 2 diabetes mellitus ([facility]) 01/28/2023 Neuropathy due to type 2 mihca betes mellitus ([facility]) 01/28/2023 RICKI (generalized anxiety disorder) 01/28/2023 Chronic low back pain 01/28/2023 Chronic neck pain 01/28/2023 Migraine 01/28/2023 Recurrent major depression 05/21/2022 Type 2 diabetes mellitus wit hout complication ([facility]) 10/24/2020 Pain of foot 07/08/2013 COPD (chronic obstructive pu lmonary disease) ([facility]) 07/06/2007 Degenerative joint disease 07/06/2005 Encounters Date Type Department Care Team Description 07/15/2024 Scan HEALTH INFO SRVCS Scanned, Doc Med Group Image (SCAN) 07/15/2024 Telephone [facility] Medical Group Multispecialty Care - [address] [place] [address] Gabe Vázquez DO Results 07/14/2024 8:00 AM TAXICAB STARTER [facility] - [address] [place] [address] Gabe Vázquez DO Obstructive Sleep Apnea (On cpap; has been told that he is still snoring with the cpap on; last time he changed out mask/straps was 05/2024 ) 07/14/2024 MyChart Message Enc [facility] - [address], [address] [place] [address] Gabe Vázquez DO Xray for Pedrito Mcneill 07/14/2024 Travel 06/02/2024 MyChart Message Enc [facility] - [place] [address] [place] [address] Reuben Padilla MD [facility] 05/27/2024 Orders Only [facility] - [place] [address] [place] [address] Reuben Padilla MD 05/27/2024 MyChart Message Enc [facility] - [place] [address] [place] [address] Reuben Padilla MD Dexcom from Last 3 Months Immunizations Name Administration Dates Next Due Influenza (Generic) 03/19/2024,,04/10/2022,2017,03/29/2017,04/09/2016,04/12/2015,1 Influenza Adult (Generic) 04/17/2022,07/2020,03/15/2020,2015,04/13/2015,07/07/2012 [facility] COVID-19 (12+) MRNA, LNP-S, PF, 100 MCG/ 0.5 ML DOSE 04/10/2022,10/02/2020,09/12/2020,2020 [facility] COVID-19 (BAG PRINTER SAFIA ZHENG), MRNA, LNP-S, PF, 50 MCG/ [...] Comments Blood Pressure 106/71 07/14/2024 7:46 AM TAXICAB STARTER Pulse 90 07/14/2024 7:46 AM TAXICAB STARTER Temperature 36.2 ??C (97.1 ??F) 04/27/2024 8:46 AM CD T Respiratory Rate 16 07/14/2024 7:46 AM TAXICAB STARTER Oxygen Saturation 95% 07/14/2024 7:46 AM TAXICAB STARTER RA Inhaled Oxygen Concentration - - Weight 92.5 kg (204 lb) 07/14/2024 7:46 AM TAXICAB STARTER Height 177.8 cm (5' 10 ) 07/14/2024 7:46 AM TAXICAB STARTER Body Mass Index 29.27 07/14/2024 7:46 AM TAXICAB STARTER Plan of Treatment Upcoming Encounters Date Type Department Care Team (Late st Contact Info) Description 09/03/2024 8:00 PM TAXICAB STARTER Appointment [facility] Sleep Lab [address] [place] [address] Gabe Vázquez DO [address] [facility] [address] [place] [address] 10/06/2024 9:00 AM CDT Office Visit [facility] Medical [facility] Multispec[facility]ty Care - [place] [address] [address] [place] [address] Reuben Padilla MD [address] [facility] [address] [place] [address] 01/24/2025 9:00 AM CDT [facility] [address] [place] [address] Gabe Vázquez DO [address] [facility] [address] [place] [address] Health Maintenance Due Date Last Done Comments Kidney Health Evaluation 1965 COVID-19 Vaccine ( season) 2024 03/19/2024, 03/31/2023, 04/17/2022, Additional history exists Annual Physical 07/16/2024 07/16/2023 Lipid Panel 07/16/2024 07/16/2023, 01/05, 08/20/2022 Hemoglobin A1C 07/28/2024 01/26/2024, 10/05, 07/16/2023, Additional history exists Colorectal Cancer Screening Colonoscopy (10 Years) 07/12/2025 07/12/2015 PHQ-2 (Physician [place]) 07/14/2025 07/14/2024 Diabetes: Retinopathy Eye Exam 11/09/2025 [...] hyperglycemia, without long-term current use of insulin ([facility]) DIABETIC RETINOPATHY EXAM (NEGATIVE)(SCAN ORDER) Routine 11/10/2023 LIPID PANEL Routine 07/16/2023 1:33 PM TAXICAB STARTER Annual physical exam General medical exam HEPATITIS [...] - 6.2 % 01/26/2024 3:15 PM CDT [facility] ESTIMATED AVG GLUCOSE 123(H) 74 - 106 MG/DL 01/26/2024 3:15 PM CDT [facility] 01/26/2024 10:1 7 AM CDT Reuben Padilla MD LABORATORY Final Result [facility] [place] [address] [facility] [place] [address], [place] [phone] * DIABETIC RETINOPATHY EXAM (NEGATIVE) (11/10/2023) Doc Med Group Scanned SCANNING Final Resu lt Performing Organization Address City/[facility]/ZIP Co de Phone Number [facility] * (ABNORMAL) LIPID PANEL (07/16/2023 1:33 PM TAXICAB STARTER) CHOLESTEROL 186 <200 MG/DL 07/16/2023 8:05 PM TAXICAB STARTER [facility] TRIGLYCERIDES 197(H) <150 MG/DL 07/16/2023 8:05 PM [facility] HDL 48 >40 MG/DL 07/16/2023 8:05 PM TAXICAB STARTER [facility] LDL-C 99 <100 MG/DL 07/16/2023 8:05 PM [facility] VLDL CALCULATION 39(H) 5 - 28 MG/DL 07/16/2023 8:05 PM [facility] CHOL/HDL RATIO 3.9 0.0 - 4.0 07/16/2023 8:05 PM [facility] LDL/HDL 2.1 0.41 - 2.13 07/16/2023 8:05 PM [facility] NON HDL CHOLESTEROL 138 <140 MG/DL 07/16/2023 8:05 PM TAXICAB STARTER [facility] 07/16/2023 1:33 PM TAXICAB STARTER Reuben Padilla MD LABORATORY Final Result [facility] [address] [facility] [place] [address], [place] [phone] * HEPATITIS C ANTIBODY (01/28/2023 3:37 PM CDT) HEPATITIS C AB NON-REACTI VE NON-REACT MADYSON 01/28/2023 9:58 PM CDT [facility] Comment: ANTIBODIES TO HCV NOT DETECTED. DOES NOT EXCLUDE THE POSSIBILITY OF EXPOSURE TO HCV. 01/28/2023 3:37 PM CDT Reuben Padilla MD LABORATORY Final Result Performing Organization Address City/[facility] Co de Phone Number [facility] [address] [place] [address], [place] [phone] * COLONOSCOPY GENERIC (07/12/2015) 07/12/2015 us Doc Med Group Scanned SCANNING Final Resu lt from Last 3 Months or Most Recently Relevant to Health Maintenance Insurance [employer] Care Teams Health Science Instructor Relationship Specialty Start Date End Date Reuben Padilla MD [address] [facility] [address] [place] [address] PCP - General INTERNAL MEDICINE 12/04/22
--- OUTSIDE RECORDS SUMMARY | 2024-08-02 06:08 | XMS_ITS | Clinical Summary ---
Author Organization [facility] (formerly [facility]) at [facility] Address [address] [place] [address] Care Team Providers Care Flexographic Press Set Up Operator Name Role Phone Morris Busby MD Primary Care Provider [phone] Allergies Active Allergy Reactions Criticality Noted Date [...] 2 diabetes mellitus without complication, unspecified whether rodent exterminator insulin use (HCC) Use to check glucose [...] with long-term current use of insulin ([facility]) Use to continually monitor glucose, change every 10 days 9 each 1 023 Active Dexcom G6 Transmitter deviceIndications:T ype 2 diabetes mellitus with hyperglycemia, with long-term current use of insulin ([facility]) Use to continually monitor glucose, change every 90 days 1 each 1 023 Active Dexcom G6 Band Manager miscIndications:Typ e 2 diabetes mellitus without complication, unspecified whether usp insulin use ([facility]) Use to continually monitor glucose 1 each [...] on file Legal Sex Male 7:47 PM INFORMATION TECHNOLOGY SECURITY ANALYST Gender Identity Not on file Sexual Orientation Not on file 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 Not on file Obstetrics History Last Filed Vital Signs Vital Sign Reading Time Taken Comments Blood Pressure 131/81 05/28/2022 9:29 AM INFORMATION TECHNOLOGY SECURITY ANALYST Pulse 79 05/28/2022 9:29 AM INFORMATION TECHNOLOGY SECURITY ANALYST Temperature 37.3 ??C (99.1 ??F) 05/28/2022 9:29 AM CS T Respiratory Rate - - Oxygen Saturation 98% 05/21/2022 3:48 PM INFORMATION TECHNOLOGY SECURITY ANALYST Inhaled Oxygen Concentration - - Weight 108.9 kg (240 lb) 05/28/2022 9:29 AM INFORMATION TECHNOLOGY SECURITY ANALYST Height 177.8 cm (5' 10 ) 05/28/2022 9:29 AM INFORMATION TECHNOLOGY SECURITY ANALYST Body Mass Index 34.44 05/28/2022 9:29 AM INFORMATION TECHNOLOGY SECURITY ANALYST Plan of Treatment Health Maintenance Due Date [...] Diagnosis Comments EGFR Routine 08/20/2022 10:29 AM INFORMATION TECHNOLOGY SECURITY ANALYST Type 2 diabetes mellitus without complication, unspecified whether usp insulin use (HCC) HEMOGLOBIN A1C Routine 08/20/2022 10:29 AM INFORMATION TECHNOLOGY SECURITY ANALYST Type 2 diabetes mellitus without complication, unspecified whether usp insulin use (HCC) LIPID PANEL Routine 08/20/2022 10:29 AM INFORMATION TECHNOLOGY SECURITY ANALYST Type 2 diabetes mellitus without complication, unspecified whether usp insulin use (HCC) PSA SCREEN Routine 11/13/2021 2:34 PM CDT Prostate cancer screening ALBUMIN CREATININE RATIO, URINE Routine 10/02/2021 8:25 AM CDT Type 2 diabetes mellitus without complication, unspecified whether rodent exterminator insulin use (HCC) from Last 3 Months or Most Recently Relevant to Health Maintenance Results * eGFR (08/20/2022 10:29 AM INFORMATION TECHNOLOGY SECURITY ANALYST) [facility] eGFR 104 mL/min/1. 73 m2 SHMUEL [...] reviewed 2021. Blood 08/20/2022 10:2 9 AM INFORMATION TECHNOLOGY SECURITY ANALYST 08/20/2022 2:54 PM INFORMATION TECHNOLOGY SECURITY ANALYST Morris Busby MD LAB BLOOD ORDERABLES Padmini l Result Performing Organization Address [facility] de Phone Number [facility] [address] [place] [address] * (ABNORMAL) Hemoglobin A1c (08/20/2022 10:29 AM INFORMATION TECHNOLOGY SECURITY ANALYST) Hgb A1C 8.1(H) 4.0 - 5.6 % SHMUEL Estimated Average Glucose 186 mg/dL SHMUEL Comment: The ADA recommends reporting an estimated Average Glucose (eAG) with all Hemoglobin A1c results using the equation derived from a study of 507 normal and diabetic adults. ??Minority populations were underrepresented and children were not included. ?? (Diabetes Care 31:2705-5261, 2008). ??The eAG is not equivalent to a fasting glucose. Blood 08/20/2022 10:2 9 AM INFORMATION TECHNOLOGY SECURITY ANALYST 08/20/2022 2:51 PM INFORMATION TECHNOLOGY SECURITY ANALYST Morris Busby MD LAB BLOOD ORDERABLES Padmini l Result Performing Organization Address [facility] de Phone Number [facility] [address] [address] [facility] [place] [address] * (ABNORMAL) Lipid panel (08/20/2022 10:29 AM INFORMATION TECHNOLOGY SECURITY ANALYST) Cholesterol 168 30 - 199 mg/dL SHMUEL [...] 5 SHMUEL Blood 08/20/2022 10:2 9 AM INFORMATION TECHNOLOGY SECURITY ANALYST 08/20/2022 2:51 PM INFORMATION TECHNOLOGY SECURITY ANALYST us Morris Busby MD LAB BLOOD ORDERABLES Padmini carney Result SHMUEL VASQUEZ [address] Department [place] [address] * PSA screen (11/13/2021 2:34 PM CDT) [...] ORDERABLES Padmini l Result Performing Organization Address [facility] de Phone Number SHMUEL VASQUEZ [address] Department [place] [address] * Albumin Creatinine Ratio, Urine (10/02/2021 8:25 AM CDT) Pathologist [facility] Creatinine, ur 212 20 - 320 mg/dL [...] MD LAB URINE ORDERABLES Final R esult [facility] [address] [place] [address] from Last 3 Months or Most Recently Relevant to Health Maintenance Insurance ARANZA WATERMAN PREFERRED [employer] [place]REF[place]REF[place] Care Teams Flexographic Press Set Up Operator Relationship Specialty Start Date End Date Morris Busby MD [address] [place] [address] PCP - General Family Medicine 11/13/21
--- OUTSIDE RECORDS SUMMARY | 2024-08-02 06:08 | XMS_ITS | CONTINUITY OF CARE DOCUMENT ---
Author Name [email or web address] Address Unknown Organization [facility] Address [id number] [place] [address] [address] [place] [address] Phone [phone] Care Team Providers Care Woven Wood Shade Assembler Name Role Phone Richard WELLINGTON, Madeleine Unavailable Mellisa WELLINGTON, Jordan Jiménez Unavailable INSURANCE PROVIDERS Payer name Policy type / Coverage type [place] red constitution party ID [facility] [id number] 1
[2024-08-02 06:20] LABS: Basophils Percent Auto 0.4 % (0.2-1.2); Eosinophils Percent Auto 0.2 % (0-4.4); Hematocrit 40.3 % (42.0-52.0); Hemoglobin 13.2 g/dL (14.0-18.0); Immature Granulocyte Absolute 0.05 K/mm3 (0.00-0.031); Immature Granulocyte Percent A 0.5 % (0-0.5); Lymphocytes Absolute Auto 0.88 K/mm3 (0.9-3.2); Lymphocytes Percent Auto 8.7 % (18.3-44.2); Mean Corpuscular HGB Conc 32.8 g/dl (32-36); Mean Corpuscular Hemoglobin 30.5 pg (26-34); Mean Corpuscular Volume 93.1 fl (80-100); Mean Platelet Volume 10.9 fl (7.4-10.4); Monocytes Absolute Auto 0.4 K/mm3 (0.1-0.6); Monocytes Percent Auto 4.1 % (2.6-8.5); Neutrophils Absolute Auto 8.7 K/mm3 (1.3-6.7); Neutrophils Percent Auto 86.1 % (45.5-73.1); Platelet Count Result 190 k/mm3 (150-375); Red Blood Count 4.33 M/mm3 (4.6-6.20); Red Cell Distribution Width 13.2 % (11.5-14.5); White Blood Count 10.1 K/mm3 (4.5-10.0)
--- NOTE | 2024-08-02 06:22 | ED.SOB ---
HPI - SOB/Dyspnea General Chief Complaint: Shortness of Breath/Dyspnea Stated Complaint: SOB, wheezing, chest tightness with deep breathing Time Seen by Provider: 08/02/24 03:44 History of Present Illness HPI Narrative: 58-year-old male with a past medical history including COPD and hypertension presenting to the emergency department with chest tightness, shortness of breath, wheezing and exertional dyspnea for last 3 days. Patient states he has had COPD but never had an exacerbation to this degree. He was so short of breath on exertion that she got dizzy and lightheaded, and had presyncope while walking to the bathroom and struck his head. No reported loss of conscious and he was awake and answering questions immediately thereafter. He does have a small laceration to the bridge of his nose but not taking any kind of blood thinner medications. No headache or vision changes. He remembers the entirety of the event. He states for last 3 days he has been having worsening exertional dyspnea. Patient has no history of coronary disease, CHF for irregular heartbeat to his knowledge. Not any kind of blood thinner but does take a baby aspirin. EMS noted that he was hypoxic to 90% on room air which improved to 97% after DuoNeb in route. Related Data Allergies Allergy/AdvReac Type Severity Reaction Status Date / Time Penicillins Allergy Unknown Other Verified 08/02/24 03:00 Sulfa (Sulfonamide Allergy Unknown Other Verified 08/02/24 03:00 Antibiotics) Review of Systems Review of Systems: As reviewed above in HPI Exam Narrative: GENERAL: Uncomfortable appearing, in moderate respiratory distress, alert oriented, answering questions and conversationally dyspneic fashion HEAD: [Normocephalic, atraumatic.] EYES: [PERRLA and EOMI.] ENT: Nares clear, no rhinorrhea or epistaxis. Mucous membranes moist. NECK: Supple. CHEST: Diminished air entry bilaterally with scattered wheezes throughout both lung wilkerson, tachypneic, moderate respiratory distress, conversational dyspneic HEART: [Regular rate and rhythm]. No murmur heard. [Normal peripheral pulses.] ABDOMEN: [Soft, nondistended], [nontender], [No rigidity or guarding] EXTREMITIES: Normal range of motion. [No edema.] SKIN: Warm, dry, no rash. NEURO: [No focal deficits]. Alert and oriented [x3.] PSYCH: [Normal mood and affect.] Course Vital Signs Vital signs: Vital Signs Temperature 36.3 C L 08/02/24 02:56 Pulse Rate 113 H 08/02/24 02:56 Respiratory Rate 24 H 08/02/24 02:56 Blood Pressure 130/70 08/02/24 02:56 Pulse Oximetry 97 08/02/24 02:56 Oxygen Delivery Room Air 08/02/24 02:56 Temperature 36.3 C L 08/02/24 02:56 Pulse Rate 123 H 08/02/24 07:18 Respiratory Rate 24 H 08/02/24 07:18 Blood Pressure 115/60 08/02/24 07:18 Pulse Oximetry 98 08/02/24 07:18 Oxygen Delivery Room Air 08/02/24 05:25 Oxygen Flow Rate 2 08/02/24 03:37 MDM - SOB/Dyspnea MDM Narrative Medical decision making narrative: 58-year-old male with history of COPD and hypertension, diabetes mellitus. Presenting in moderate respiratory distress with diminished air entry and scattered wheezing throughout both lungs consistent with potential COPD exacerbation. Symptoms going on for last 3 days. Symptoms also having component of exertional dyspnea and he states that he is having difficulty even walking short distances without getting worsening chest tightness, chest pain and difficulty breathing. Hypoxic on route status post DuoNebs with improvement to 97% on room air. He does have tachycardic rate with a pulse in the 110s, tachypneic, afebrile, blood pressure within normal limits. Strong symmetric pulses with tachycardic rate but regular rhythm. No evidence of clinical signs of DVT. Treatments were initiated with respiratory therapy at bedside including albuterol, ipratropium, Solu-Medrol, magnesium. Laboratory studies were ordered in addition to a cardiac workup with troponin, EKG. Patient was re-evaluated after treatments for his COPD exacerbation. He did not have any significant clinical improvement and still look relatively unwell in any distress. He states he got up and use the restroom and was having worsening exertional dyspnea and chest tightness. Remains tachycardic and tachypneic with improved wheezing on auscultation however. Workup started come back and he had concerning troponin elevations with rising delta troponin on 3 or repeat. No leukocytosis or anemia was found. Coagulation studies within normal limits. Normal BUN and creatinine. Electrolytes with some mild hypokalemia 3.1. Critically elevated troponin at 0.63 on repeat level. Chest x-ray without concern findings. EKG initially showed potential small elevation in lead AVR and diffuse depressions. Repeat EKG without marked change. I ran the EKGs by the computer aided design designer Dr. Daugherty who went and re-evaluated the patient at bedside and agreed that he likely has component of cardiac etiology and rather than a COPD exacerbation causing his symptoms. Would benefit from a catheterization procedure and will happen today. Patient was admitted to the hospitalist team to the intermediate care unit. I discussed this with Yudith the mid-level provider overnight who accepted the patient to the intermediate care unit with cardiology's recommendations. Patient was started on heparin here in the emergency department and admitted at this time. Patient made aware of the plan of care going forward and patient and family's questions were answered. Medical Records Attestation: I reviewed the patient's medical records. Lab Data Attestation: I reviewed the patient's lab results. 08/02/24 06:10 08/02/24 03:12 Labs: Lab Results 08/02/24 08/02/24 08/02/24 Range/Units 03:06 03:12 06:10 WBC 10.1 H 10.1 H (4.5-10.0) K/mm3 RBC 4.21 L 4.33 L (4.6-6.20) M/mm3 Hgb 12.9 L 13.2 L (14.0-18.0) g/dL Hct 39.3 L 40.3 L (42.0-52.0) % MCV 93.3 93.1 (80-100) fl MCH 30.6 30.5 (26-34) pg MCHC 32.8 32.8 (32-36) g/dl RDW 13.2 13.2 (11.5-14.5) % Plt Count 197 190 (150-375) k/mm3 MPV 10.8 H 10.9 H (7.4-10.4) fl Immature Gran % (Auto) 0.2 0.5 (0-0.5) % Neut % (Auto) 62.1 86.1 H (45.5-73.1) % Lymph % (Auto) 28.6 8.7 L (18.3-44.2) % [place] % (Auto) 7.3 4.1 (2.6-8.5) % Eos % (Auto) 1.4 0.2 (0-4.4) % Baso % (Auto) 0.4 0.4 (0.2-1.2) % Lymph # (Auto) 2.88 0.88 L (0.9-3.2) K/mm3 [place] # (Auto) 0.7 H 0.4 (0.1-0.6) K/mm3 Eos # (Auto) 0.1 0.0 (0-0.3) K/mm3 Baso # (Auto) 0.0 0.0 (0.0-0.1) K/mm3 Abs Immat Gran (auto) 0.02 0.05 H (0.00-0.031) K/mm3 Absolute Neuts (auto) 6.3 8.7 H (1.3-6.7) K/mm3 Absolute Nucleated RBC 0.000 0.000 (0.0-0.012) K/mm3 Nucleated RBC % 0.0 0.0 (0.0-0.2) % PT 13.4 (11.1-14.7) Seconds INR 1.0 APTT 26.5 (22.3-36.8) Seconds Sodium 139 (137-145) mmol/L Potassium 3.1 L (3.4-5.0) mmol/L Chloride 106 (98-107) mmol/L Carbon Dioxide 21 L (22-30) mmol/L Anion Gap 12 (4-12) mmol/L BUN 25 H (9-20) mg/dL Creatinine 1.02 (0.7-1.3) mg/dL Estim Creat Clear Calc 71 ml/min Estimated GFR > 60 (59 - ) Glucose 280 H (65-110) mg/dL POC Capillary Glucose 302 H (65-105) mg/dl Calcium 8.4 (8.4-10.2) mg/dL Total Bilirubin 0.3 (0.2-1.3) mg/dL AST 19 (17-59) U/L ALT 19 (6-50) U/L Alkaline Phosphatase 63 (38-126) U/L Troponin I 0.187 H* 0.639 H* D (0.000-0.034) ng/mL Total Protein 7.0 (6.3-8.2) g/dL Albumin 3.9 (3.5-5.1) g/dL Influenza A (RT-PCR) Negative (Negative) Influenza B (RT-PCR) Negative (Negative) RSV (RT-PCR) Negative (Negative) SARS-CoV-2 RNA (RT-PCR) Negative (Negative) Imaging Data Attestation: I personally reviewed and interpreted this imaging study as follows: My impression: Impressions Chest X-Ray 08/02/24 06:27 Impression: Clear lungs. Critical Care Time Critical Care Time Critical Care Time: Yes Total Critical Care Time: 35 Discharge Plan Discharge Clinical Impression: COPD exacerbation, NSTEMI (non-ST elevated myocardial infarction) Patient Disposition: Still a Patient Condition: Serious Time of Disposition: 08:23
[2024-08-02 06:40] LABS: Prothrombin Time 13.4 Seconds (11.1-14.7)
[2024-08-02 06:41] LABS: Partial Thromboplastin Time 26.5 Seconds (22.3-36.8)
[2024-08-02] MEDS: HEPARIN SOD/D5W 100 UNITS/ML 25,000 UNITS/250 ML BAG 10 UNITS IV CONT (06:43)
[2024-08-02 06:46] LABS: Troponin I 0.639 ng/mL (0.000-0.034)
--- NOTE | 2024-08-02 07:17 | P.CONCA_ITS ---
Assessment and Plan Assessment and plan (1) NSTEMI (non-ST elevated myocardial infarction): Code(s): I21.4 - Non-ST elevation (NSTEMI) myocardial infarction Status: Acute (2) COPD exacerbation: Code(s): J44.1 - Chronic obstructive pulmonary disease with (acute) exacerbation Status: Acute Plan Assessment: High risk NSTEMI-up trending troponin, ongoing chest pain of intensity 7/10; EKG with ST depressions in leads I, II, V5, and V6 suggestive of ischemia, ST elevation in lead AVR suggestive of left main disease COPD exacerbation-patient had no improvement in symptoms with therapies for COPD exacerbation administered in the ER Hypokalemia with potassium 3.1 Plan: In the setting of rising troponin and ongoing 7/10 left-sided chest pain associated with diaphoresis and no response to COPD therapies, patient's presentation could most likely be due to type [address] depression suggestive of ischemia and ST elevation in AVR suggestive of left main disease. Recommend urgent cardiac catheterization to evaluate ischemia as cause of patient's symptoms Give aspirin 325 mg once, then 81 mg p.o. daily Start atorvastatin 80 mg daily Start heparin drip Check and replace electrolytes to keep potassium greater than 4 and magnesium greater than 2 TTE today Monitor on telemetry History of Present Illness History of Present Illness Consult date/time: 08/02/24 07:17 Reason For Visit: SOB, wheezing, chest tightness with deep breathing Narrative: 58-year-old male with history of COPD presented to the ER today with chest pain that started on Friday and shortness of breath since Friday evening. Patient describes the pain as a tightness in his left chest of intensity 7/10. Since the onset of chest tightness on Friday it has not resolved completely but keeps increasing and decreasing in intensity. This morning around 1:00 a.m. he was walking up the stairs and when he reached the top of the stairs he passed out. EMS was called and he was brought to the ER. In the ER he was treated for COPD exacerbation but the treatments did not help him as they usually do. He continues to have 7/10 chest pain and looks visibly uncomfortable and diaphoretic. Of note, his mother had an [place] in her 50s. Troponin I is elevated to 0.187 and 0.639. EKG shows sinus rhythm with ST depressions in leads I, II, V5, V6, and ST elevation in AVR suggestive of left main disease. Workup: Hemoglobin: 13.2 Potassium: 3.1 Troponin 0.187, 0.639 EKG: Sinus rhythm, ST depressions in leads I, II, V6 I, V6, ST elevation in AVR suggestive of left main disease Review of Systems 2 Review of Systems: Complete review of systems performed and negative other than those mentioned in HPI Meds Home Medications and Allergies Allergies Allergy/AdvReac Type Severity Reaction Status Date / Time Penicillins Allergy Unknown Other Verified 08/02/24 03:00 Sulfa (Sulfonamide Allergy Unknown Other Verified 08/02/24 03:00 Antibiotics) Vital Signs Vital Signs - 24 hr 08/02/24 02:56 08/02/24 03:33 08/02/24 03:33 Temperature 36.3 C L Pulse Rate 113 H 112 H Respiratory Rate 24 H Blood Pressure 130/70 Pulse Oximetry 97 94 Oxygen Delivery Room Air Room Air Oxygen Flow Rate 08/02/24 03:33 08/02/24 03:37 08/02/24 04:10 Temperature Pulse Rate 111 H 104 H Respiratory Rate 20 22 H Blood Pressure 97/63 L Pulse Oximetry 92 95 Oxygen Delivery Nasal Cannula Oxygen Flow Rate 2 08/02/24 04:26 08/02/24 05:09 08/02/24 05:25 Temperature Pulse Rate 110 H 116 H Respiratory Rate 23 H 21 H Blood Pressure 113/62 Pulse Oximetry 100 95 Oxygen Delivery Room Air Oxygen Flow Rate 08/02/24 06:02 Temperature Pulse Rate 117 H Respiratory Rate 23 H Blood Pressure Pulse Oximetry 95 Oxygen Delivery Oxygen Flow Rate Exam 2 Narrative: General: Alert oriented x3, no acute distress Neck: Supple, no JVD Chest: Bilaterally clear to auscultation, no rales or rhonchi Cardiac: S1, S2 +, regular rate, regular rhythm, no murmurs or rubs Extremities: No pedal edema, no skin rash Neurologic: Alert and oriented x3, no focal neurological deficits Results Labs and Meds 08/02/24 06:10 08/02/24 03:12 Lab results: Cardiac Enzymes 08/02/24 08/02/24 Range/Units 03:12 06:10 AST 19 (17-59) U/L Troponin I 0.187 H* 0.639 H* D (0.000-0.034) ng/mL Coagulation 08/02/24 Range/Units 06:10 PT 13.4 (11.1-14.7) Seconds APTT 26.5 (22.3-36.8) Seconds CBC 08/02/24 08/02/24 Range/Units 03:12 06:10 WBC 10.1 H 10.1 H (4.5-10.0) K/mm3 RBC 4.21 L 4.33 L (4.6-6.20) M/mm3 Hgb 12.9 L 13.2 L (14.0-18.0) g/dL Hct 39.3 L 40.3 L (42.0-52.0) % Plt Count 197 190 (150-375) k/mm3 Lymph # (Auto) 2.88 0.88 L (0.9-3.2) K/mm3 [place] # (Auto) 0.7 H 0.4 (0.1-0.6) K/mm3 Eos # (Auto) 0.1 0.0 (0-0.3) K/mm3 Baso # (Auto) 0.0 0.0 (0.0-0.1) K/mm3 Comprehensive Metabolic Panel 08/02/24 Range/Units 03:12 Sodium 139 (137-145) mmol/L Potassium 3.1 L (3.4-5.0) mmol/L Chloride 106 (98-107) mmol/L Carbon Dioxide 21 L (22-30) mmol/L BUN 25 H (9-20) mg/dL Creatinine 1.02 (0.7-1.3) mg/dL Glucose 280 H (65-110) mg/dL Calcium 8.4 (8.4-10.2) mg/dL AST 19 (17-59) U/L ALT 19 (6-50) U/L Alkaline Phosphatase 63 (38-126) U/L Total Protein 7.0 (6.3-8.2) g/dL Albumin 3.9 (3.5-5.1) g/dL Intake and Output 08/01/24 08/01/24 08/02/24 15:59 23:59 07:59 Intake Total 1050 Balance 1050 Intake: IV 1050 Lactated Ringers 1,000 ml @ 999 1000 mls/hr IV CONT .Q1H1M STA Rx#: [id number] Magnesium Sulf 2 gm/Water 50Ml 50 2 gm In 50 ml @ 25 mls/hr IVPB ONCE ONE Rx#:[id number] Patient Weight 08/02/24 23:59 Weight 92.9 kg
--- NOTE | 2024-08-02 08:16 | WPDHPUPDATE1 ---
History and Physical Update Update Date/Time: 08/02/24 08:16 History and Physical has been reviewed, including an updated exam of the patient. There are NO changes in the patient's condition. Risks, benefits, and alternatives have been discussed and questions answered. Patient agrees to proceed with procedure.
--- NOTE | 2024-08-02 08:17 | WPDMODSED ---
Moderate Sedation Note-Pt Data Patient Data Diagnosis: NSTEMI Present Complaint: NSTEMI Procedure to be performed/Plan: Coronary angiography, left heart cath, +/- PCI Allergies Allergy/AdvReac Type Severity Reaction Status Date / Time Penicillins Allergy Unknown Other Verified 08/02/24 03:00 Sulfa (Sulfonamide Allergy Unknown Other Verified 08/02/24 03:00 Antibiotics) Current Medications: Active Medications Heparin Sodium (Porcine) (Heparin Sodium 5,000 Units/Ml Vial) 4,000 units IV PUSH PRN PRN PRN Reason: aPTT less than 55 seconds Heparin Sodium (Porcine) (Heparin Sodium 5,000 Units/Ml Vial) 3,000 units IV PUSH PRN PRN PRN Reason: aPTT 55 - 70 seconds Heparin Sodium/Dextrose (Heparin Sodium/D5w 100 Units/Ml) 25,000 units in 250 mls @ 10 mls/hr IV CONT .Q24H [facility]; Protocol Last Admin: 08/02/24 06:43 Dose: 1,000 units/hr, 10 mls/hr Sedation/Anesthesia: No previous sedation/anesthesia problems (including family history). Mod Sed Physical Exam Physical Exam Pre Procedural Exam: Normal: Heart Rate, Heart Rhythm, Neuro Exam, Extremities and Skin and Variation: Appearance (In mild distress) Hours since solid foods: 0 Hours since liquid intake: 0 Mallampati Classification: class III Internal Medicine - PN: Obj Da Vital Signs Vital Signs: Vital Signs - 24 hr 08/02/24 02:56 08/02/24 03:33 08/02/24 03:33 Temperature 36.3 C L Pulse Rate 113 H 112 H Respiratory Rate 24 H Blood Pressure 130/70 Pulse Oximetry 97 94 Oxygen Delivery Room Air Room Air Oxygen Flow Rate 08/02/24 03:33 08/02/24 03:37 08/02/24 04:10 Temperature Pulse Rate 111 H 104 H Respiratory Rate 20 22 H Blood Pressure 97/63 L Pulse Oximetry 92 95 Oxygen Delivery Nasal Cannula Oxygen Flow Rate 2 08/02/24 04:26 08/02/24 05:09 08/02/24 05:25 Temperature Pulse Rate 110 H 116 H Respiratory Rate 23 H 21 H Blood Pressure 113/62 Pulse Oximetry 100 95 Oxygen Delivery Room Air Oxygen Flow Rate 08/02/24 06:02 08/02/24 07:18 Temperature Pulse Rate 117 H 123 H Respiratory Rate 23 H 24 H Blood Pressure 115/60 Pulse Oximetry 95 98 Oxygen Delivery Oxygen Flow Rate Intake/Output Intake/Output: Intake & Output 07/30/24 07/31/24 08/01/24 08/02/24 23:59 23:59 23:59 23:59 Intake Total 1050 Balance 1050 Meds/Results Medications: Active Medications Generic Name Dose Route Start Last Admin Trade Name Freq PRN Reason Stop Dose Admin Heparin Sodium (Porcine) 4,000 units 08/02/24 06:30 Heparin Sodium 5,000 Units/Ml Vial IV PUSH PRN PRN aPTT less than 55 seconds Heparin Sodium (Porcine) 3,000 units 08/02/24 06:30 Heparin Sodium 5,000 Units/Ml Vial IV PUSH PRN PRN aPTT 55 - 70 seconds Heparin Sodium/Dextrose 25,000 units in 250 mls @ 10 mls/hr 08/02/24 06:30 08/02/24 06:43 Heparin Sodium/D5w 100 Units/Ml IV CONT 1,000 units/hr .Q24H KD 10 mls/hr Administration Protocol 1,000 UNITS/HR Radiology Results: ITS Impressions Chest X-Ray 08/02/24 06:27 Impression: Clear lungs. Labs 08/02/24 06:10 08/02/24 03:12 Labs: Laboratory Results - last 24 hr 08/02/24 08/02/24 08/02/24 03:06 03:12 06:10 WBC 10.1 H 10.1 H RBC 4.21 L 4.33 L Hgb 12.9 L 13.2 L Hct 39.3 L 40.3 L MCV 93.3 93.1 MCH 30.6 30.5 MCHC 32.8 32.8 RDW 13.2 13.2 Plt Count 197 190 MPV 10.8 H 10.9 H Immature Gran % (Auto) 0.2 0.5 Neut % (Auto) 62.1 86.1 H Lymph % (Auto) 28.6 8.7 L Tripp % (Auto) 7.3 4.1 Eos % (Auto) 1.4 0.2 Baso % (Auto) 0.4 0.4 Lymph # (Auto) 2.88 0.88 L Tripp # (Auto) 0.7 H 0.4 Eos # (Auto) 0.1 0.0 Baso # (Auto) 0.0 0.0 Abs Immat Gran (auto) 0.02 0.05 H Absolute Neuts (auto) 6.3 8.7 H Absolute Nucleated RBC 0.000 0.000 Nucleated RBC % 0.0 0.0 PT 13.4 INR 1.0 APTT 26.5 Sodium 139 Potassium 3.1 L Chloride 106 Carbon Dioxide 21 L Anion Gap 12 BUN 25 H Creatinine 1.02 Estim Creat Clear Calc 71 Estimated GFR > 60 Glucose 280 H POC Capillary Glucose 302 H Calcium 8.4 Total Bilirubin 0.3 AST 19 ALT 19 Alkaline Phosphatase 63 Troponin I 0.187 H* 0.639 H* D Total Protein 7.0 Albumin 3.9 Influenza A (RT-PCR) Negative Influenza B (RT-PCR) Negative RSV (RT-PCR) Negative SARS-CoV-2 RNA (RT-PCR) Negative ASA Classification/Sedation ASA Classification/Sedation ASA Class: III Emergent: Yes (Urgent) Risks: Risks, benefits and alternatives explained and patient/family accepted plan for sedation. Patient re-evaluated immediately prior to sedation.
--- NOTE | 2024-08-02 08:17 | WPDCARDPROC ---
Cardiac Cath Procedure Note Date of procedure:: 08/02/24 Performing physician:: CATHETERIZATION LABORATORY REPORT Procedure Date: 08/02/2023 Punching Machine Operator: Russ Culver M.D., [facility]? Referring Physician: Tila Daugherty M.D. ? Anesthesia: Versed and Fentanyl were ordered and given in my presence at 08:29, procedure ended at 09:04. Supervision of nurse monitored moderate sedation with Versed and Fentanyl was provided for 35 minutes. Total of Versed 1mg and Fentanyl 50mcg were administered by the Wind Farm Engineer RN Eleanor Oscar. Pre-op Diagnosis: NSTEMI Post-op Diagnosis: 1. No obstructive coronary arteries. Coronary arteries appear angiographically normal. 2. Normal left ventricular end-diastolic pressure of 5mmHg 3. Normal LV systolic function without appreciable wall motion abnormalities. Procedure(s): 1. Moderate sedation 2. Ultrasound-guided access of the right radial artery, right common femoral artery 3. Coronary angiography 4. Left heart cath 5. Left ventricular angiogram. Access Site: Right radial artery Right common femoral artery Brief History and Clinical Indications: Patient is a 58 year old male who is referred for urgent cardiac catheterization for high risk NSTEMI. All risks, benefits and alternatives to left heart catheterization with or without percutaneous coronary intervention was discussed at length with the patient. Risk of complications including but not limited to bleeding, infection, arrhythmia, stroke, worsening kidney function, blood loss, groin hematoma, limb loss, emergency coronary artery bypass grafting, and even were discussed with the patient and all questions were answered. The patient understood and wished to proceed. Time out called, patient name, date of , medical record number, allergies, procedure performed, identify Punching Machine Operator, patient and staff member concurred with accurate data, procedure carried on. Findings: LEFT HEART CATHETERIZATION FINDINGS: 1. Left main: The left main coronary artery is widely patent without any significant obstructive disease. 2. Left anterior descending: The LAD and the diagonal branches have mild luminal irregularities without any significant obstructive angiographic disease. 3. Left circumflex: The left circumflex artery and the main marginal branches have mild luminal irregularities without any significant obstructive angiographic disease. 4. Right coronary artery: The RCA has mild luminal irregularities without any significant obstructive angiographic disease. The RCA is the dominant vessel. 5. Left ventricle: A. End-diastolic pressure 5 mmHg. B. LV gram: Description of Procedure: Informed consent signed and placed in the chart. Patient transferred to director of labor relations room. Prepped and draped in usual sterile fashion. 2% lidocaine injected subcutaneously in right wrist area. 22-gauge venipuncture catheter used to access the right radial artery under ultrasound guidance. 6-FR slender sheath placed in right radial artery. Nitroglycerine and Verapamil were given intraarterial through the sheath. Versacore wire advanced under fluoroscopy Due to ascending aorta tortuosity, unable to engage 5F Tig diagnostic catheter in the left main or RCA. SBP's noted to be as low as 70mmHg. Started on Levophed for pressor support. Therefore, femoral access was pursued. Micropuncture needle used to access right common femoral artery with Seldinger technique under fluoroscopic and ultrasound guidance. J wire advanced, micropuncture cannula placed. Right iliofemoral angiogram performed, access confirmed and micropuncture cannula exchanged for 6-FR sheath. 5F FL 4 diagnostic catheter engaged Left Main Coronary Artery. 5F FR 4 diagnostic catheter engaged Right Coronary Artery. Multiple orthogonal angiogram obtained and reviewed 5F Pigtal diagnostic catheter crossed aortic valve to obtain LVEDP, LV angiogram obtained. Femoral Hemostasis was achieved by 6F Angioseal. Hemostasis was achieved by application of TR band. Disposition: ICU Plan: Will transfer patient to the ICU. Obtain STAT CTA to rule out aortic dissection and pulmonary embolism. Obtain STAT echo. ? Russ Culver M.D. Interventional Cardiology
[2024-08-02 09:05] LABS: Hemoglobin A1C 6.4 % (<5.7)
--- NOTE | 2024-08-02 09:31 | PC.NURSE ---
This patient, Pedrito Mcneill II, was admitted to Intensive Care Unit-4. Patient/family oriented to hospital policies and general routines including ID bracelet, bed and alarms, visiting hours, pain management, procedures, bathroom and other care routines, personal items, smoking policy, room service/diet, and visiting hours. Information on how to activate the Rapid Response Team has been discussed. Patient/Family are encouraged to report perceived risks to care and to ask questions if they do not understand what they are told or what they should do.
--- NOTE | 2024-08-02 10:31 | P.HP_ITS ---
H&P: HPI History of Present Illness Date/Time: 08/02/24 10:31 Chief Complaint: Shortness of breath Narrative: This is a 58-year-old male with a past medical history including COPD and hypertension presenting to the emergency department with chest tightness, shortness of breath, wheezing and exertional dyspnea for last 3 days. Patient states he has had COPD but never had an exacerbation to this degree. He was so short of breath on exertion that she got dizzy and lightheaded, and had presyncope while walking to the bathroom and struck his head. No reported loss of consciousness and he was awake and answering questions immediately thereafter. He does have a small laceration to the bridge of his nose but not taking any kind of blood thinner medications. No headache or vision changes. He remembers the entirety of the event. He states for last 3 days he has been having worsening exertional dyspnea. Patient has no history of coronary disease, CHF for irregular heartbeat to his knowledge. Not any kind of blood thinner but does take a baby aspirin. Upon EMS arrival they noted that he was hypoxic to 90% on room air which improved to 97% after DuoNeb in route. Along with that he also received Solu-Medrol and magnesium In the ED he was tachycardic in 110s to 120s other vitals were stable. Tachypneic. With wheezing. Laboratory workup revealed WBC of 10.1 hemoglobin of 13.2 platelet of 190. Hypokalemic at was 3.1 creatinine 1 blood sugar was 280. Troponin was 0.187 follow-up troponin was 0.639 with trend upwards. Influenza RSV COVID swab was negative. Chest x-ray showed clear lungs. EKG showed some diffuse ST depressions. Cardiology was consulted for non ST elevation DC pain in continued chest pain. He was given aspirin 325 mg and started on heparin drip. Significant history of premature coronary artery disease in family. He is admitted in the setting for further management. Review of Systems Review of Systems: - CONSTITUTIONAL: Denies weight loss, fe malissa and chills. - HEENT: Denies changes in vision and he aring - RESPIRATORY: Reports SOB and denies c ough. - CV: Denies palpitations and reports CP . - GI: Denies abdominal pain, nausea, vom iting and diarrhea. - : Denies dysuria and urinary frequen cy. - MSK: Denies myalgia and joint pain. - SKIN: Denies rash and pruritus. - NEUROLOGICAL: Denies headache and sync ope. - PSYCHIATRIC: Denies recent changes in mood. Denies anxiety and depression. [facility] Past Medical History Medical History (Updated 08/02/24 @ 10:57 by Richard Lino MD) Diabetes mellitus Chronic pain COPD (chronic obstructive pulmonary disease) Type 2 diabetes mellitus Hyperlipidemia Hypertension Social History Social History Smoking status: Never smoker Alcohol intake: never Substance use type: marijuana Do You Feel Safe in your Home?: Yes Lack of Transportation: No Lack of Food: Never True Current Housing: I Have Housing Concerned About Future Housing: No Difficulty Paying Gas/Electric Bills: No Difficulty Paying for Meds: No Currently Unemployed: No Education: Decline to Answer Difficulty w/ Childcare or Family Care: No Spiritual care concerns: No Meds Home Medications and Allergies Home Medications ?Medication ?Instructions ?Recorded ?Confirmed ?Type amitriptyline 25 mg tablet 25 mg PO DAILY 08/02/24 08/02/24 History atorvastatin 40 mg tablet 40 mg PO QPM 08/02/24 08/02/24 History bupropion HCl 150 mg 24 hr tablet, 150 mg PO DAILY 08/02/24 08/02/24 History extended release buspirone 10 mg tablet 10 mg PO BID 08/02/24 08/02/24 History chlorhexidine gluconate 0.12 % 08/02/24 History mouthwash cyclobenzaprine 10 mg tablet 10 mg PO DAILY PRN muscle pain 08/02/24 08/02/24 History ezetimibe 10 mg tablet 10 mg PO DAILY 08/02/24 08/02/24 History fenofibrate 160 mg tablet 160 mg PO DAILY 08/02/24 08/02/24 History fentanyl 50 mcg/hr transdermal 1 patch transdermal Q72H 08/02/24 08/02/24 History patch fluoxetine 40 mg capsule 40 mg PO QPM 08/02/24 08/02/24 History fluticasone 250 mcg-salmeterol 50 1 inh inhalation Q12H 08/02/24 08/02/24 History mcg/dose blistr powdr for inhalation (Wixela Inhub) insulin aspart U-100 100 unit/mL 5 unit subcut TIDWM 08/02/24 08/02/24 History (3 mL) subcutaneous pen (Novolog FlexPen U-100 Insulin aspart) insulin glargine U-300 conc 300 54 unit subcut HS 08/02/24 08/02/24 History unit/mL (3 mL) subcutaneous pen (Toujeo Max U-300 SoloStar) lisinopril 10 mg tablet 10 mg PO DAILY 08/02/24 08/02/24 History methylnaltrexone 150 mg tablet 450 mg PO DAILY 08/02/24 08/02/24 History (Relistor) ondansetron HCl 4 mg tablet 4 mg PO DAILY PRN nausea and 08/02/24 08/02/24 History vomiting oxycodone-acetaminophen 7.5 mg-325 1 tablet PO TID PRN pain 08/02/24 08/02/24 History mg tablet pregabalin 75 mg capsule 75 mg PO BID 08/02/24 08/02/24 History ropinirole 1 mg tablet 1 mg PO TID 08/02/24 08/02/24 History tirzepatide 10 mg/0.5 mL 10 mg subcut WEEKLY 08/02/24 08/02/24 History subcutaneous pen injector (Sejal) topiramate 100 mg tablet 100 mg PO Q12H 08/02/24 08/02/24 History tramadol 50 mg tablet 50 mg PO QID PRN pain 08/02/24 08/02/24 History valacyclovir 500 mg tablet 1,000 mg PO Q12H 08/02/24 08/02/24 History zolmitriptan 5 mg nasal spray 1 spray intranasal Q12H 08/02/24 08/02/24 History Allergies Allergy/AdvReac Type Severity Reaction Status Date / Time Penicillins Allergy Unknown Other Verified 08/02/24 03:00 Sulfa (Sulfonamide Allergy Unknown Other Verified 08/02/24 03:00 Antibiotics) Vital Signs Vital Signs - 24 hr 08/02/24 02:56 08/02/24 03:33 08/02/24 03:33 Temperature 97.3 F L Pulse Rate 113 H 112 H Respiratory Rate 24 H Blood Pressure 130/70 Pulse Oximetry 97 94 Oxygen Delivery Room Air Room Air Oxygen Flow Rate 08/02/24 03:33 08/02/24 03:37 08/02/24 04:10 Temperature Pulse Rate 111 H 104 H Respiratory Rate 20 22 H Blood Pressure 97/63 L Pulse Oximetry 92 95 Oxygen Delivery Nasal Cannula Oxygen Flow Rate 2 08/02/24 04:26 08/02/24 05:09 08/02/24 05:25 Temperature Pulse Rate 110 H 116 H Respiratory Rate 23 H 21 H Blood Pressure 113/62 Pulse Oximetry 100 95 Oxygen Delivery Room Air Oxygen Flow Rate 08/02/24 06:02 08/02/24 07:18 08/02/24 08:07 Temperature 98.1 F Pulse Rate 117 H 123 H 120 H Respiratory Rate 23 H 24 H 29 H Blood Pressure 115/60 Pulse Oximetry 95 98 98 Oxygen Delivery Oxygen Flow Rate 08/02/24 09:45 08/02/24 10:00 Temperature 97.6 F Pulse Rate 104 H 108 H Respiratory Rate 17 18 Blood Pressure 101/60 104/59 L Pulse Oximetry 98 99 Oxygen Delivery Oxygen Flow Rate Exam Narrative: GENERAL: mildly tachypneic, alert and oriented x 3, HEAD: [Normocephalic, atraumatic.] EYES: [PERRLA and EOMI.] ENT: Nares clear, no rhinorrhea or epistaxis. Mucous membranes moist. NECK: Supple. CHEST: kaylynn tachypneic, diminshed breath sounds bilaterally mild conversational dypneic HEART: [Regular rate and rhythm]. No murmur heard. [Normal peripheral pulses.] ABDOMEN: [Soft, nondistended], [nontender], [No rigidity or guarding] EXTREMITIES: Normal range of motion. [No edema.] SKIN: Warm, dry, no rash. NEURO: [No focal deficits]. Alert and oriented [x3.] PSYCH: [Normal mood and affect.] H&P: Results Labs Labs: Short CBC 08/02/24 08/02/24 Range/Units 03:12 06:10 WBC 10.1 H 10.1 H (4.5-10.0) K/mm3 Hgb 12.9 L 13.2 L (14.0-18.0) g/dL Hct 39.3 L 40.3 L (42.0-52.0) % Plt Count 197 190 (150-375) k/mm3 BMP 08/02/24 03:12 Sodium 139 Potassium 3.1 L Chloride 106 Carbon Dioxide 21 L BUN 25 H Creatinine 1.02 Glucose 280 H Calcium 8.4 Cardiac Enzymes 08/02/24 08/02/24 Range/Units 03:12 06:10 Troponin I 0.187 H* 0.639 H* D (0.000-0.034) ng/mL Liver Function 08/02/24 Range/Units 03:12 Total Bilirubin 0.3 (0.2-1.3) mg/dL AST 19 (17-59) U/L ALT 19 (6-50) U/L Alkaline Phosphatase 63 (38-126) U/L Albumin 3.9 (3.5-5.1) g/dL Assessment and Plan Assessment and plan (1) NSTEMI (non-ST elevated myocardial infarction): Code(s): I21.4 - Non-ST elevation (NSTEMI) myocardial infarction Status: Acute (2) COPD exacerbation: Code(s): J44.1 - Chronic obstructive pulmonary disease with (acute) exacerbation Status: Acute (3) Pulmonary embolism and infarction: Code(s): I26.99 - Other pulmonary embolism without acute cor pulmonale Status: Acute (4) Type 2 diabetes mellitus: Code(s): E11.9 - Type 2 diabetes mellitus without complications Status: Acute (5) Hypertension: Code(s): I10 - Essential (primary) hypertension Status: Acute (6) Hyperlipidemia: Code(s): E78.5 - Hyperlipidemia, unspecified Status: Acute Plan This is a 58-year-old male with a past medical history including COPD and hypertension presenting to the emergency department with chest tightness, shortness of breath, wheezing and exertional dyspnea for last 3 days. Patient states he has had COPD but never had an exacerbation to this degree. He was so short of breath on exertion that she got dizzy and lightheaded, and had presyncope while walking to the bathroom and struck his head. No reported loss of consciousness and he was awake and answering questions immediately thereafter. He does have a small laceration to the bridge of his nose but not taking any kind of blood thinner medications. No headache or vision changes. He remembers the entirety of the event. He states for last 3 days he has been having worsening exertional dyspnea. Patient has no history of coronary disease, CHF for irregular heartbeat to his knowledge. Not any kind of blood thinner but does take a baby aspirin. Upon EMS arrival they noted that he was hypoxic to 90% on room air which improved to 97% after DuoNeb in route. Along with that he also received Solu-Medrol and magnesium In the ED he was tachycardic in 110s to 120s other vitals were stable. Tachypneic. With wheezing. Laboratory workup revealed WBC of 10.1 hemoglobin of 13.2 platelet of 190. Hypokalemic at was 3.1 creatinine 1 blood sugar was 280. Troponin was 0.187 follow-up troponin was 0.639 with trend upwards. Influenza RSV COVID swab was negative. Chest x-ray showed clear lungs. EKG showed some diffuse ST depressions. Cardiology was consulted for non ST elevation DC pain in continued chest pain. He was given aspirin 325 mg and started on heparin drip. Significant history of premature coronary artery disease in family. He is admitted in the setting for further management. He is currently status post cardiac catheterization which showed no obstructive coronary artery disease. Left ventricular end-diastolic pressure was 5 mm Hg. Normal LV systolic function with no wall motion abnormalities. Stat CTA and echo was planned. Stat CTA showed extensive pulmonary emboli with high clot burden involving all the lobar and multiple segmental and subsegmental pulmonary throughout both lungs and asymmetric enlargement of the right ventricular suggesting secondary right heart strain. Couple small peripheral wedge-shaped areas of consolidation in the anterior segment of the left upper lobe consistent with secondary pulmonary infarcts are less likely pneumonia. Small sliding hiatal hernia Extensive pulmonary emboli bilaterally started on iv heparin. right heart strain. planned trasnfer to [facility] for thrombolysis. COPD exacerbation DuoNeb steroid as ordered Hypokalemia non ST-elevation DC Type 2 diabetes mellitus SSI. A1c came back at 6.4 Hypertension Hyperlipidemia DVT prophylaxis SCDs heparin drip Code status full code Hospitalist MIPS Advance Care Plan I have confirmed that the patient's Advanced Care Plan is present, code status is documented, or surrogate decision maker is listed in patient medical record.: Yes Medication Reconciliation I have utilized all available resources to obtain, update and review the patients current medications (includes all prescriptions, OTC, herbals, cannabis, and nutritional supplements).: Yes
[2024-08-02 10:34] LABS: Glucose Point of Care 288 mg/dl (65-105)
[2024-08-02 10:40] LABS: Basophils Percent Auto 0.3 % (0.2-1.2); Hematocrit 38.7 % (42.0-52.0); Hemoglobin 12.7 g/dL (14.0-18.0); Immature Granulocyte Absolute 0.02 K/mm3 (0.00-0.031); Immature Granulocyte Percent A 0.3 % (0-0.5); Lymphocytes Absolute Auto 0.95 K/mm3 (0.9-3.2); Lymphocytes Percent Auto 11.9 % (18.3-44.2); Mean Corpuscular HGB Conc 32.8 g/dl (32-36); Mean Corpuscular Hemoglobin 30.5 pg (26-34); Mean Corpuscular Volume 92.8 fl (80-100); Mean Platelet Volume 10.5 fl (7.4-10.4); Monocytes Absolute Auto 0.4 K/mm3 (0.1-0.6); Monocytes Percent Auto 4.6 % (2.6-8.5); Neutrophils Absolute Auto 6.6 K/mm3 (1.3-6.7); Neutrophils Percent Auto 82.9 % (45.5-73.1); Platelet Count Result 190 k/mm3 (150-375); Red Blood Count 4.17 M/mm3 (4.6-6.20); Red Cell Distribution Width 13.3 % (11.5-14.5)
[2024-08-02] MEDS: HEPARIN SOD/D5W 100 UNITS/ML 25,000 UNITS/250 ML BAG 15 UNITS IV CONT (10:40)
[2024-08-02] MEDS: INSULIN ASPART (*BKC) 100 UNITS/ML SUB-Q ×2 (10:41→17:30)
--- NOTE | 2024-08-02 10:46 | WPDCNINT ---
Assessment and Plan Assessment and plan (1) Pulmonary embolism and infarction: Code(s): I26.99 - Other pulmonary embolism without acute cor pulmonale Status: Acute Assessment and Plan: CT scan confirmed IMPRESSION: 1. Extensive pulmonary emboli with high clot burden involving all of the lobar and multiple segmental and subsegmental pulmonary throughout both lungs with asymmetric enlargement of the right ventricle suggesting secondary right heart strain. Findings were discussed with Dr. Lino, at 10:00 AM. 2. Couple small peripheral wedge-shaped regions of consolidation in the anterior segment of the left upper lobe consistent with secondary pulmonary infarcts or less likely pneumonia. 3. Small sliding-type hiatal hernia. This would explain patient's shortness of breath and chest pain Although patient became hypotensive during the cardiac catheterization procedure he did get sedation which could be the culprit. At this time patient is off of vasopressors with stable blood pressure and not a candidate for systemic tPA. He does have a large PE with high clot burden and evidence of right heart strain on CT. He will benefit from catheter directed intra-arterial thrombolytic therapy Meanwhile patient will be started on heparin infusion Will give 1 L fluid bolus Check BNP and cardiac echo Check lower extremity venous Dopplers In case patient goes into shock we may have to give him systemic thrombolytics Patient does mentioned bright red blood in his stool and also endorses history of had bleeding hemorrhoids. Will monitor closely I spoke to the intervention computer systems technician Zac Carrington and Dr. Loco at [facility] and I was told that they have multiple other patient is waiting for cardiac catheterization and this time they do not have any spot to take this patient. They will call back in case they have a opening in the cardiac catheterization lab. They will prior to his patient if patient becomes hemodynamically unstable I spoke to Dr. Putnam at [facility] and they will accept the patient for planned catheter directed intra-arterial thrombolytic therapy. Patient will be transferred once bed is available (2) Chronic pain: Code(s): G89.29 - Other chronic pain Status: Acute Assessment and Plan: Will order p.r.n. morphine for chest pain (3) COPD (chronic obstructive pulmonary disease): Code(s): J44.9 - Chronic obstructive pulmonary disease, unspecified Status: Acute Assessment and Plan: Solu-Medrol Bronchodilators (4) Hyperlipidemia: Code(s): E78.5 - Hyperlipidemia, unspecified Status: Acute Assessment and Plan: Continue statin (5) NSTEMI (non-ST elevated myocardial infarction): Code(s): I21.4 - Non-ST elevation (NSTEMI) myocardial infarction Status: Acute Assessment and Plan: Likely secondary to pulmonary embolism Patient had cardiac catheterization which showed no significant coronary disease Patient is on statin (6) Hypertension: Code(s): I10 - Essential (primary) hypertension Status: Acute Assessment and Plan: Blood pressure in control in this time monitor (7) Type 2 diabetes mellitus: Code(s): E11.9 - Type 2 diabetes mellitus without complications Status: Acute Assessment and Plan: Currently NPO Sliding scale insulin Resume Lantus at a lower rate later today Plan DVT prophylaxis -heparin infusion Nutrition - NPO Code Status - Full Code I spoke to patient and his at bedside and updated him with patient's status including large PE with intermediate risk. Both me and the computer systems technician discussed with patient regarding transfer to a tertiary facility for intra-arterial catheter directed thrombolytic therapy and risks and benefits of transfer. Both verbalized understanding and agreed to proceed Total Critical Care Time - minutes Due to a high probability of clinically significant, life threatening deterioration, the patient required my highest level of preparedness to intervene emergently and I personally spent this critical care time directly and personally managing the patient. This critical care time included obtaining a history; examining the patient; pulse oximetry; ordering and review of studies; arranging urgent treatment with development of a management plan; evaluation of patient's response to treatment; frequent reassessment; and discussions with other providers. It was exclusive of separately billable procedures and treating other patients and teaching time. Please see Assessment and Plan section and the rest of the note for further information on patient assessment and treatment [facility] Consult Note Consult date: 08/02/24 Reason for consult: Chest pain, shortness a breath, pulmonary embolism HPI: Pedrito Mcneill II is a 58 year old male with past medical history of COPD, diabetes, hypertension, hyperlipidemia who presented to ER today with chief complaint of chest pain shortness a breath. Patient states the symptoms started on Friday while he was sitting and as he became short of breath. Shortness of breath was worse on exertion. He tried his inhalers but with no benefit. And minimal exertion he was getting winded. Then yesterday she started having chest pain 7 to 8/10 all over his chest, sharp, all over his chest with no radiation. Worse with deep breathing and movement. He denies any cough nausea vomiting fever abdominal pain. He denies any hematochezia or but has had some bright blood in his stools he states that he has had bleeding hemorrhoids. Review of system was also positive for chronic lower extremity pain from neuropathy and past surgery. All other systems were reviewed and were negative. Workup in the ER showed the patient had elevated troponin. Patient diagnosed with [place] and although patient did not had any ST elevation on EKG, due to his ongoing chest pain he was taken to cardiac catheterization lab. Cardiac catheterization was unremarkable with no significant coronary disease and normal LVEDP. During the procedure patient received sedation and his blood pressure dropped and patient was started on Levophed. Post procedure patient was sent to Radiology for chest CTA. Patient now admitted to ICU for further evaluation managed Review of Systems Review of Systems: All systems reviewed & are unremarkable except as noted in HPI and below (HPI) [facility] Past Medical History Medical History (Updated 08/02/24 @ 10:57 by Richard Lino MD) Diabetes mellitus Chronic pain COPD (chronic obstructive pulmonary disease) Type 2 diabetes mellitus Hyperlipidemia Hypertension Social History Social History Smoking status: Never smoker Alcohol intake: never Substance use type: marijuana Do You Feel Safe in your Home?: Yes Lack of Transportation: No Lack of Food: Never True Current Housing: I Have Housing Concerned About Future Housing: No Difficulty Paying Gas/Electric Bills: No Difficulty Paying for Meds: No Currently Unemployed: No Education: Decline to Answer Difficulty w/ Childcare or Family Care: No Spiritual care concerns: No Meds Home Medications and Allergies Home Medications ?Medication ?Instructions ?Recorded ?Confirmed ?Type amitriptyline 25 mg tablet 25 mg PO DAILY 08/02/24 08/02/24 History atorvastatin 40 mg tablet 40 mg PO QPM 08/02/24 08/02/24 History bupropion HCl 150 mg 24 hr tablet, 150 mg PO DAILY 08/02/24 08/02/24 History extended release buspirone 10 mg tablet 10 mg PO BID 08/02/24 08/02/24 History chlorhexidine gluconate 0.12 % 08/02/24 History mouthwash cyclobenzaprine 10 mg tablet 10 mg PO DAILY PRN muscle pain 08/02/24 08/02/24 History ezetimibe 10 mg tablet 10 mg PO DAILY 08/02/24 08/02/24 History fenofibrate 160 mg tablet 160 mg PO DAILY 08/02/24 08/02/24 History fentanyl 50 mcg/hr transdermal 1 patch transdermal Q72H 08/02/24 08/02/24 History patch fluoxetine 40 mg capsule 40 mg PO QPM 08/02/24 08/02/24 History fluticasone 250 mcg-salmeterol 50 1 inh inhalation Q12H 08/02/24 08/02/24 History mcg/dose blistr powdr for inhalation (Wixela Inhub) insulin aspart U-100 100 unit/mL 5 unit subcut TIDWM 08/02/24 08/02/24 History (3 mL) subcutaneous pen (Novolog FlexPen U-100 Insulin aspart) insulin glargine U-300 conc 300 54 unit subcut HS 08/02/24 08/02/24 History unit/mL (3 mL) subcutaneous pen (Toujeo Max U-300 SoloStar) lisinopril 10 mg tablet 10 mg PO DAILY 08/02/24 08/02/24 History methylnaltrexone 150 mg tablet 450 mg PO DAILY 08/02/24 08/02/24 History (Relistor) ondansetron HCl 4 mg tablet 4 mg PO DAILY PRN nausea and 08/02/24 08/02/24 History vomiting oxycodone-acetaminophen 7.5 mg-325 1 tablet PO TID PRN pain 08/02/24 08/02/24 History mg tablet pregabalin 75 mg capsule 75 mg PO BID 08/02/24 08/02/24 History ropinirole 1 mg tablet 1 mg PO TID 08/02/24 08/02/24 History tirzepatide 10 mg/0.5 mL 10 mg subcut WEEKLY 08/02/24 08/02/24 History subcutaneous pen injector (Sejal) topiramate 100 mg tablet 100 mg PO Q12H 08/02/24 08/02/24 History tramadol 50 mg tablet 50 mg PO QID PRN pain 08/02/24 08/02/24 History valacyclovir 500 mg tablet 1,000 mg PO Q12H 08/02/24 08/02/24 History zolmitriptan 5 mg nasal spray 1 spray intranasal Q12H 08/02/24 08/02/24 History Allergies Allergy/AdvReac Type Severity Reaction Status Date / Time Penicillins Allergy Unknown Other Verified 08/02/24 03:00 Sulfa (Sulfonamide Allergy Unknown Other Verified 08/02/24 03:00 Antibiotics) Vital Signs Vital Signs - 24 hr 08/02/24 02:56 08/02/24 03:33 08/02/24 03:33 Temperature 36.3 C L Pulse Rate 113 H 112 H Respiratory Rate 24 H Blood Pressure 130/70 Pulse Oximetry 97 94 Oxygen Delivery Room Air Room Air Oxygen Flow Rate 08/02/24 03:33 08/02/24 03:37 08/02/24 04:10 Temperature Pulse Rate 111 H 104 H Respiratory Rate 20 22 H Blood Pressure 97/63 L Pulse Oximetry 92 95 Oxygen Delivery Nasal Cannula Oxygen Flow Rate 2 08/02/24 04:26 08/02/24 05:09 08/02/24 05:25 Temperature Pulse Rate 110 H 116 H Respiratory Rate 23 H 21 H Blood Pressure 113/62 Pulse Oximetry 100 95 Oxygen Delivery Room Air Oxygen Flow Rate 08/02/24 06:02 08/02/24 07:18 08/02/24 08:07 Temperature 36.7 C Pulse Rate 117 H 123 H 120 H Respiratory Rate 23 H 24 H 29 H Blood Pressure 115/60 Pulse Oximetry 95 98 98 Oxygen Delivery Oxygen Flow Rate 08/02/24 09:45 08/02/24 10:00 Temperature 36.4 C Pulse Rate 104 H 108 H Respiratory Rate 17 18 Blood Pressure 101/60 104/59 L Pulse Oximetry 98 99 Oxygen Delivery Oxygen Flow Rate Exam Narrative: General: Pt is alert awake and in mild discomfort due to chest pain Lungs/Chest: Trachea central Clear BS B/L, No crackles or wheezing. Cardiac: RRR. Normal S1 S2. No murmurs Circulation: Pedal pulses are intact and symmetrical. Abdomen: Normal bowel sounds.. Soft. NT. ND. Extremities: No clubbing, cyanosis or edema. Warm TR band on the right wrist : Puente in place Neurologic: Follows commands. Moves all 4 extremities PERRL Skin: No Rash Results Labs 08/02/24 10:32 08/02/24 03:12 Labs: Short CBC 08/02/24 08/02/24 08/02/24 Range/Units 03:12 06:10 10:32 WBC 10.1 H 10.1 H 8.0 (4.5-10.0) K/mm3 Hgb 12.9 L 13.2 L 12.7 L (14.0-18.0) g/dL Hct 39.3 L 40.3 L 38.7 L (42.0-52.0) % Plt Count 197 190 190 (150-375) k/mm3 BMP 08/02/24 03:12 Sodium 139 Potassium 3.1 L Chloride 106 Carbon Dioxide 21 L BUN 25 H Creatinine 1.02 Glucose 280 H Calcium 8.4 Cardiac Enzymes 08/02/24 08/02/24 Range/Units 03:12 06:10 Troponin I 0.187 H* 0.639 H* D (0.000-0.034) ng/mL Liver Function 08/02/24 Range/Units 03:12 Total Bilirubin 0.3 (0.2-1.3) mg/dL AST 19 (17-59) U/L ALT 19 (6-50) U/L Alkaline Phosphatase 63 (38-126) U/L Albumin 3.9 (3.5-5.1) g/dL Quality VTE Prophylaxis VTE prophylaxis: pharmacologic ordered Hospitalist MIPS Advance Care Plan I have confirmed that the patient's Advanced Care Plan is present, code status is documented, or surrogate decision maker is listed in patient medical record.: Yes Medication Reconciliation I have utilized all available resources to obtain, update and review the patients current medications (includes all prescriptions, OTC, herbals, cannabis, and nutritional supplements).: Yes
[2024-08-02 10:54] LABS: INR 1.1; Prothrombin Time 14.5 Seconds (11.1-14.7)
[2024-08-02 10:55] LABS: Partial Thromboplastin Time 49.4 Seconds (22.3-36.8)
[2024-08-02] MEDS: PERFLUTREN LIPID MICROSPHERES 1.5 ML VIAL DILUTED TO 10 ML TOTAL VOLUME IV PUSH (11:00)
[2024-08-02 11:12] LABS: Troponin I 0.855 ng/mL (0.000-0.034)
[2024-08-02 11:25] LABS: NT Pro B Type Natriuretic Pept 1740 pg/mL (19.9-100)
[2024-08-02] MEDS: POTASSIUM BICARBONATE 25 MEQ TABEF 50 MEQ PO (11:29)
[2024-08-02 11:44] LABS: Glucose Point of Care 239 mg/dl (65-105)
--- NOTE | 2024-08-02 12:16 | IVDEFINITY ---
Prior to administration of IV Definity the patient was educated on the risks and benefits of the imaging enhancing agent including potential adverse side effects. The patient verbalized understanding. Allergies were verified. No exclusion criteria were identified and at least one of the following inclusion criteria were met: 1) physician request, 2) patient technically difficult to image (per the [place] [employer]ocardi[employer] guidelines of two or more segments not discernable within the apical view), or 3) questionable left ventricular function. ?
[2024-08-02 14:34] LABS: LDL Cholesterol Direct 71 mg/dL
[2024-08-02 14:39] LABS: Cholesterol 134 mg/dL (0-200); HDL Direct 39 mg/dL; Triglycerides 171 mg/dL (<150)
[2024-08-02 16:38] LABS: Glucose Point of Care 130 mg/dl (65-105)
--- NOTE | 2024-08-06 14:50 | PM.TDS ---
Transfer Discharge Sum: Prov Provider Date of admission: 08/02/24 07:09 Primary care physician: Reuben Padilla, Admitting clinician: Francisco Mccauley MD Consults: 08/02/24 Consult to Physician Routine Comment: Consulting Provider: Tila Daugherty Reason for consultation: NSTEMI Has provider been notified: Yes DS: Admitting Diagnosis Discharge Date 08/02/24 Admitting Diagnosis Shortness of breath DS: Discharge Diagnosis Discharge Diagnosis (1) NSTEMI (non-ST elevated myocardial infarction): Code(s): I21.4 - Non-ST elevation (NSTEMI) myocardial infarction Status: Acute (2) COPD exacerbation: Code(s): J44.1 - Chronic obstructive pulmonary disease with (acute) exacerbation Status: Acute (3) Pulmonary embolism and infarction: Code(s): I26.99 - Other pulmonary embolism without acute cor pulmonale Status: Acute (4) Type 2 diabetes mellitus: Code(s): E11.9 - Type 2 diabetes mellitus without complications Status: Acute (5) Hypertension: Code(s): I10 - Essential (primary) hypertension Status: Acute (6) Hyperlipidemia: Code(s): E78.5 - Hyperlipidemia, unspecified Status: Acute Transfer Discharge Sum: Med Medications Active and Home Medications: Home Medications amitriptyline 25 mg tablet 25 mg PO DAILY 08/02/24 [History Confirmed 08/02/24] atorvastatin 40 mg tablet 40 mg PO QPM 08/02/24 [History Confirmed 08/02/24] bupropion HCl 150 mg 24 hr tablet, extended release 150 mg PO DAILY 08/02/24 [History Confirmed 08/02/24] buspirone 10 mg tablet 10 mg PO BID 08/02/24 [History Confirmed 08/02/24] cyclobenzaprine 10 mg tablet 10 mg PO DAILY PRN muscle pain 08/02/24 [History Confirmed 08/02/24] ezetimibe 10 mg tablet 10 mg PO DAILY 08/02/24 [History Confirmed 08/02/24] fenofibrate 160 mg tablet 160 mg PO DAILY 08/02/24 [History Confirmed 08/02/24] fentanyl 50 mcg/hr transdermal patch 1 patch transdermal Q72H 08/02/24 [History Confirmed 08/02/24] fluoxetine 40 mg capsule 40 mg PO QPM 08/02/24 [History Confirmed 08/02/24] fluticasone 250 mcg-salmeterol 50 mcg/dose blistr powdr for inhalation (Yariel Inhub) 1 inh inhalation Q12H 08/02/24 [History Confirmed 08/02/24] insulin aspart U-100 100 unit/mL (3 mL) subcutaneous pen (Novolog FlexPen U-100 Insulin aspart) 5 unit subcut TIDWM 08/02/24 [History Confirmed 08/02/24] insulin glargine U-300 conc 300 unit/mL (3 mL) subcutaneous pen (Toujeo Max U-300 SoloStar) 54 unit subcut HS 08/02/24 [History Confirmed 08/02/24] lisinopril 10 mg tablet 10 mg PO DAILY 08/02/24 [History Confirmed 08/02/24] methylnaltrexone 150 mg tablet (Relistor) 450 mg PO DAILY 08/02/24 [History Confirmed 08/02/24] ondansetron HCl 4 mg tablet 4 mg PO DAILY PRN nausea and vomiting 08/02/24 [History Confirmed 08/02/24] oxycodone-acetaminophen 7.5 mg-325 mg tablet 1 tablet PO TID PRN pain 08/02/24 [History Confirmed 08/02/24] pregabalin 75 mg capsule 75 mg PO BID 08/02/24 [History Confirmed 08/02/24] ropinirole 1 mg tablet 1 mg PO TID 08/02/24 [History Confirmed 08/02/24] tirzepatide 10 mg/0.5 mL subcutaneous pen injector (Mounjaro) 10 mg subcut WEEKLY 08/02/24 [History Confirmed 08/02/24] topiramate 100 mg tablet 100 mg PO Q12H 08/02/24 [History Confirmed 08/02/24] tramadol 50 mg tablet 50 mg PO QID PRN pain 08/02/24 [History Confirmed 08/02/24] valacyclovir 500 mg tablet 1,000 mg PO Q12H 08/02/24 [History Confirmed 08/02/24] zolmitriptan 5 mg nasal spray 1 spray intranasal Q12H 08/02/24 [History Confirmed 08/02/24] Transfer Discharge Sum: Hosp Hospital Course Hospital course: Pedrito R Osito II is a 58 year old male with a past medical history including COPD and hypertension presenting to the emergency department with chest tightness, shortness of breath, wheezing and exertional dyspnea for last 3 days. Patient states he has had COPD but never had an exacerbation to this degree. He was so short of breath on exertion that she got dizzy and lightheaded, and had presyncope while walking to the bathroom and struck his head. No reported loss of consciousness and he was awake and answering questions immediately thereafter. He does have a small laceration to the bridge of his nose but not taking any kind of blood thinner medications. No headache or vision changes. He remembers the entirety of the event. He states for last 3 days he has been having worsening exertional dyspnea. Patient has no history of coronary disease, CHF for irregular heartbeat to his knowledge. Not any kind of blood thinner but does take a baby aspirin. Upon EMS arrival they noted that he was hypoxic to 90% on room air which improved to 97% after DuoNeb in route. Along with that he also received Solu-Medrol and magnesium In the ED he was tachycardic in 110s to 120s other vitals were stable. Tachypneic. With wheezing. Laboratory workup revealed WBC of 10.1 hemoglobin of 13.2 platelet of 190. Hypokalemic at was 3.1 creatinine 1 blood sugar was 280. Troponin was 0.187 follow-up troponin was 0.639 with trend upwards. Influenza RSV COVID swab was negative. Chest x-ray showed clear lungs. EKG showed some diffuse ST depressions. Cardiology was consulted for non ST elevation AR pain in continued chest pain. He was given aspirin 325 mg and started on heparin drip. Significant history of premature coronary artery disease in family. He is admitted in the setting for further management. He is currently status post cardiac catheterization which showed no obstructive coronary artery disease. Left ventricular end-diastolic pressure was 5 mm Hg. Normal LV systolic function with no wall motion abnormalities. Stat CTA and echo was planned. Stat CTA showed extensive pulmonary emboli with high clot burden involving all the lobar and multiple segmental and subsegmental pulmonary throughout both lungs and asymmetric enlargement of the right ventricular suggesting secondary right heart strain. Couple small peripheral wedge-shaped areas of consolidation in the anterior segment of the left upper lobe consistent with secondary pulmonary infarcts are less likely pneumonia. Small sliding hiatal hernia Extensive pulmonary emboli bilaterally started on iv heparin. right heart strain. Due to extensive pulmonary emboli with right heart strain a transfer was initiated to [facility] for thrombosis. He was accepted at [facility] and was transferred there. COPD exacerbation DuoNeb steroid as ordered Hypokalemia non ST-elevation AR Type 2 diabetes mellitus SSI. A1c came back at 6.4 Hypertension Hyperlipidemia DVT prophylaxis SCDs heparin drip Code status full code Time Spent with Patient Time attestation: Total time spent providing and/or coordinating transfer services: 35 minutes Exam Narrative: GENERAL: mildly tachypneic, alert and oriented x 3, HEAD: [Normocephalic, atraumatic.] EYES: [PERRLA and EOMI.] ENT: Nares clear, no rhinorrhea or epistaxis. Mucous membranes moist. NECK: Supple. CHEST: kaylynn tachypneic, diminshed breath sounds bilaterally mild conversational dypneic HEART: [Regular rate and rhythm]. No murmur heard. [Normal peripheral pulses.] ABDOMEN: [Soft, nondistended], [nontender], [No rigidity or guarding] EXTREMITIES: Normal range of motion. [No edema.] SKIN: Warm, dry, no rash. NEURO: [No focal deficits]. Alert and oriented [x3.] PSYCH: [Normal mood and affect.] DS: Data Data Completed and Pending Completed studies during hospitalization: Exam Type: CA echo doppler color flow w con Study Info Indications R07.9 - Chest pain, unspecified Complete two-dimensional, color flow and Doppler transthoracic echocardiogram is performed with contrast to opacify the left ventricle and to improve the deliniation of the left ventricle endocardial borders. Contrast/Agitated Saline Contrast/Ag. Saline: Definity Amount: 2.00 ml Administered By: Jenn Delvalle RDCS Existing IV Access: Yes IV Access Condition: patent with no signs of infiltration Summary 1. Left ventricular systolic function is normal, estimated at 55-60%. 2. The left ventricular diastolic function is abnormal. 3. Right ventricular chamber dimension is mildly enlarged. 4. Right ventricular systolic function is reduced. 5. There is trace tricuspid valve regurgitation. 6. Mild pulmonary hypertension, estimated pulmonary arterial systolic pressure is 38 mmHg. 7. Technically difficult study with limited views. Left Ventricle Left ventricular chamber dimension is normal. Left ventricular systolic function is normal, estimated at 55-60%. There is no increased left ventricular wall thickness. The left ventricular diastolic function is abnormal. Right Ventricle Right ventricular chamber dimension is mildly enlarged. Right ventricular systolic function is reduced. Left Atria Left atrial chamber dimension is normal. Right Atria Right atrial chamber dimension is normal. Aortic Valve The aortic valve is probable trileaflet. There is mild aortic valve sclerosis. There is no aortic valve stenosis. There is no aortic valve regurgitation. Pulmonic Valve The pulmonic valve is normal. There is no pulmonic valve stenosis. There is no pulmonic regurgitation. Mitral Valve The mitral valve has normal leaflets. There is no mitral valve stenosis. There is no mitral valve regurgitation. Tricuspid Valve The tricuspid valve leaflets are normal. There is no significant tricuspid valve stenosis. There is trace tricuspid valve regurgitation. Mild pulmonary hypertension, estimated pulmonary arterial systolic pressure is 38 mmHg. Pericardium/Pleural The pericardium appears normal. There is no pericardial effusion. Inferior Vena Cava Normal inferior vena cava with <50% collapse upon inspiration consistent with elevated right atrial pressure, 10 mmHg. Aorta The aortic root size at the sinus of Valsalva is normal. The prox ascending aorta size is normal. Procedures/Treatments: Cardiac Cath Procedure Note Date of procedure:: 08/02/24 Performing physician:: CATHETERIZATION LABORATORY REPORT Procedure Date: 08/02/2023 Mounter Clarinets: Russ Culver M.D., [facility]? Referring Physician: Tila Daugherty M.D. ? Anesthesia: Versed and Fentanyl were ordered and given in my presence at 08:29, procedure ended at 09:04. Supervision of nurse monitored moderate sedation with Versed and Fentanyl was provided for 35 minutes. Total of Versed 1mg and Fentanyl 50mcg were administered by the Furnace Liner DEANNA Oscar. Pre-op Diagnosis: NSTEMI Post-op Diagnosis: 1. No obstructive coronary arteries. Coronary arteries appear angiographically normal. 2. Normal left ventricular end-diastolic pressure of 5mmHg 3. Normal LV systolic function without appreciable wall motion abnormalities. Procedure(s): 1. Moderate sedation 2. Ultrasound-guided access of the right radial artery, right common femoral artery 3. Coronary angiography 4. Left heart cath 5. Left ventricular angiogram. Access Site: Right radial artery Right common femoral artery Brief History and Clinical Indications: Patient is a 58 year old male who is referred for urgent cardiac catheterization for high risk NSTEMI. All risks, benefits and alternatives to left heart catheterization with or without percutaneous coronary intervention was discussed at length with the patient. Risk of complications including but not limited to bleeding, infection, arrhythmia, stroke, worsening kidney function, blood loss, groin hematoma, limb loss, emergency coronary artery bypass grafting, and even were discussed with the patient and all questions were answered. The patient understood and wished to proceed. Time out called, patient name, date of , medical record number, allergies, procedure performed, identify Mounter Clarinets, patient and staff member concurred with accurate data, procedure carried on. Findings: LEFT HEART CATHETERIZATION FINDINGS: 1. Left main: The left main coronary artery is widely patent without any significant obstructive disease. 2. Left anterior descending: The LAD and the diagonal branches have mild luminal irregularities without any significant obstructive angiographic disease. 3. Left circumflex: The left circumflex artery and the main marginal branches have mild luminal irregularities without any significant obstructive angiographic disease. 4. Right coronary artery: The RCA has mild luminal irregularities without any significant obstructive angiographic disease. The RCA is the dominant vessel. 5. Left ventricle: A. End-diastolic pressure 5 mmHg. B. LV gram: Description of Procedure: Informed consent signed and placed in the chart. Patient transferred to orthodontic lab technician room. Prepped and draped in usual sterile fashion. 2% lidocaine injected subcutaneously in right wrist area. 22-gauge venipuncture catheter used to access the right radial artery under ultrasound guidance. 6-FR slender sheath placed in right radial artery. Nitroglycerine and Verapamil were given intraarterial through the sheath. Versacore wire advanced under fluoroscopy Due to ascending aorta tortuosity, unable to engage 5F Tig diagnostic catheter in the left main or RCA. SBP's noted to be as low as 70mmHg. Started on Levophed for pressor support. Therefore, femoral access was pursued. Micropuncture needle used to access right common femoral artery with Seldinger technique under fluoroscopic and ultrasound guidance. J wire advanced, micropuncture cannula placed. Right iliofemoral angiogram performed, access confirmed and micropuncture cannula exchanged for 6-FR sheath. 5F FL 4 diagnostic catheter engaged Left Main Coronary Artery. 5F FR 4 diagnostic catheter engaged Right Coronary Artery. Multiple orthogonal angiogram obtained and reviewed 5F Pigtal diagnostic catheter crossed aortic valve to obtain LVEDP, LV angiogram obtained. Femoral Hemostasis was achieved by 6F Angioseal. Hemostasis was achieved by application of TR band. Disposition: ICU Plan: Will transfer patient to the ICU. Obtain STAT CTA to rule out aortic dissection and pulmonary embolism. Obtain STAT echo. ? Russ Culver M.D. Interventional Cardiology Imaging Radiologist's impression: ITS Impressions Chest X-Ray 08/02/24 06:27 Impression: Clear lungs. Chest CTA 08/02/24 09:53 IMPRESSION: 1. Extensive pulmonary emboli with high clot burden involving all of the lobar and multiple segmental and subsegmental pulmonary throughout both lungs with asymmetric enlargement of the right ventricle suggesting secondary right heart strain. Findings were discussed with Dr. Lino, at 10:00 AM. 2. Couple small peripheral wedge-shaped regions of consolidation in the anterior segment of the left upper lobe consistent with secondary pulmonary infarcts or less likely pneumonia. 3. Small sliding-type hiatal hernia. Venous Doppler Study 08/02/24 14:33 IMPRESSION: 1. No deep venous thrombosis within the bilateral lower extremities.
== END 2024-08-02 18:26 | disposition short-term general hospital (02) | DRG 280 ==
LOC: ANHED 06:05 → ANHIMU 08:13 → ANHICU 09:52
PROVIDERS: Internal Medicine; Admitting Provider Internal Medicine; Emergency Provider Student in an Organized Health Care Education/Training Program; PCP Internal Medicine; Visit Provider Internal Medicine
PROC: 4A023N7 Measurement of Cardiac Sampling and Pressure, Left Heart, Percutaneous Approach (ICD-10-PCS; CPT 93452; principal; 2024-08-02 07:55)
PROC: 4A023N7 Measurement of Cardiac Sampling and Pressure, Left Heart, Percutaneous Approach (ICD-10-PCS; CPT 36140; 2024-08-02 07:55)
PROC: 4A023N7 Measurement of Cardiac Sampling and Pressure, Left Heart, Percutaneous Approach (ICD-10-PCS; 2024-08-02 07:55)
DX: I21.4 Non-ST elevation (NSTEMI) myocardial infarction (principal); I26.09 Other pulmonary embolism with acute cor pulmonale; I26.94 Multiple subsegmental thrombotic pulmonary emboli without acute cor pulmonale; J44.1 Chronic obstructive pulmonary disease with (acute) exacerbation; I10 Essential (primary) hypertension; E11.9 Type 2 diabetes mellitus without complications; E78.5 Hyperlipidemia, unspecified; G89.29 Other chronic pain; Z20.822 Contact with and (suspected) exposure to COVID-19; Z23 Encounter for immunization
CPT/HCPCS: 36140; 36415; 71045; 71275; 80053; 80061; 82948; 83036; 83880; 84443; 84484; 85025; 85610; 85730; 87637; 90471; 90715; 93005; 93306; 93458; 93970; 96361; 96365; 96375; 99285; A9270; C1760; C1769; C1887; C1894; C8929; G0269; J1644; J1815; J2003; J2250; J2305; J2371; J2919; J3010; J3475; J7040; J7060; J7120; Q9957; Q9967

== ENCOUNTER 2024-10-21 12:38 | Outpatient (CLI) | payer MEDICARE, SELFPAY ==
--- NOTE | ~2024-10-21 | XR_ITS ---
Right foot Technique: AP, oblique, and lateral views were obtained. Clinical History: Pain COMPARISON: 01/17/2023 Findings: No acute fracture or dislocation is seen. Stable orthopedic fusion across the anterior subt alar joint region. Joint spaces are preserved without erosive or degenerative change. Soft tissues ar e unremarkable. Impression: No acute abnormality. Stable postoperative change, as above. Reviewed, dictated and finalized at location . Impression: No acute abnormality. Stable postoperative change, as above.
== END 2024-10-21 12:39 | disposition home or self-care (01) ==
LOC: MICIMG 12:40
PROVIDERS: PCP Internal Medicine; Visit Provider Nurse Practitioner
DX: M25.571 Pain in right ankle and joints of right foot (principal)
CPT/HCPCS: 73630

== ENCOUNTER 2025-03-18 11:07 | Outpatient (CLI) | payer MEDICARE, SELFPAY ==
--- NOTE | ~2025-03-18 | XR_ITS ---
XR lumbar spine 2-3V Indication: Radiculopathy, lumbar Comparison: None Findings: Dextroconvex scoliosis. Moderate loss of vertebral height. Grade 1 retrolisthesis L1 on L2 and L2 on L3 and L3 on L4. There are remote superior endplate fractures of L1, L2 and L3, no acute fracture. Severe loss of disc height L1-2, L2-3 and L5-S1. Soft tissues unremarkable Impression: No acute abnormality. Reviewed, dictated and finalized at location A. Impression: No acute abnormality.
--- NOTE | ~2025-03-18 | XR_ITS ---
XR thoracic spine 2V Indication: Radiculopathy, thoracic Comparison: None Findings: The vertebral heights are intact. No fracture or subluxation. The disc heights are intact. Soft tissues unremarkable Impression: No acute abnormality. Reviewed, dictated and finalized at location A. Impression: No acute abnormality.
--- NOTE | ~2025-03-18 | XR_ITS ---
XR_[id number]_CR Indication: Radiculopathy, cervical Comparison: None Findings: The vertebral heights are intact. No fracture or subluxation. The disc heights are intact. Soft tissues unremarkable Impression: No acute abnormality. Reviewed, dictated and finalized at location A. Impression: No acute abnormality.
== END 2025-03-18 11:08 | disposition home or self-care (01) ==
LOC: MICIMG 11:09
PROVIDERS: PCP Internal Medicine; Visit Provider Pain Medicine Interventional Pain Medicine
DX: M54.12 Radiculopathy, cervical region (principal); M54.14 Radiculopathy, thoracic region; M54.17 Radiculopathy, lumbosacral region
CPT/HCPCS: 72040; 72070; 72100